=== PATIENT | male | born 1970 | race Two or more races ===

== ENCOUNTER 2017-08-14 09:11 | Inpatient (IN) | payer OTHER ==
[2017-08-14 10:40] VITALS: BMI 24.2
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
[2017-08-14] MEDS ORDERED: MENTHOL/PHENOL 1 EACH UD MM PRN (12:40)
[2017-08-14] MEDS ORDERED: hydrOXYzine PAMOATE 50 MG CAPSULE (FP) PO PRN (12:40)
[2017-08-14] MEDS ORDERED: P-EPHED 60MG/TRIPROLIDI 2.5MG TABLET PO PRN (12:40)
[2017-08-14] MEDS ORDERED: guaiFENesin/D-METHORPHAN HB 10 ML UNIT-DOSE CUPS PO PRN (12:40)
[2017-08-14] MEDS ORDERED: NICOTINE POLACRILEX 4 MG GUM BC PRN (12:40)
[2017-08-14] MEDS ORDERED: MAGNESIUM HYDROX 2400MG/30ML ORAL SUSPENSION 30 ML CUP PO PRN (12:40)
[2017-08-14] MEDS ORDERED: MAGNESIUM CITRATE 300 ML BOTTLE PO PRN (12:40)
[2017-08-14] MEDS ORDERED: IBUPROFEN 400 MG TABLET (FP) PO PRN (12:40)
[2017-08-14] MEDS ORDERED: chlordiazePOXIDE HCL 25 MG CAPSULE PO PRN (12:40)
[2017-08-14] MEDS ORDERED: MAG HYDROX/AL HYDROX/SIMETH 30 ML UNIT-DOSE CUP PO PRN (12:40)
[2017-08-14] MEDS ORDERED: ACETAMINOPHEN 325 MG TABLET (FP) PO PRN (12:40)
[2017-08-14] MEDS ORDERED: chlordiazePOXIDE HCL 25 MG CAPSULE PO ONE (13:45)
[2017-08-14 14:12] LABS: HEMATOCRIT 39.3 % (35.4-49); HEMOGLOBIN 12.6 GM/dL (11.7-16.9); MEAN CELL VOLUME 90.4 fl (80-96); MEAN PLT VOLUME 10.3 fl (7.5-11.1); PLATELET COUNT 246 K/MM3 (134-434); RBC 4.34 M/mm3 (4.00-5.60); RDW 14.2 % (11.9-15.9); WHITE BLOOD COUNT 4.4 K/mm3 (4.0-10.0)
[2017-08-14] MEDS: NICOTINE 21 MG/24 HOURS TOPICAL PATCH TD SCH (14:38)
[2017-08-14 14:48] LABS: ALBUMIN 3.8 g/dl (3.4-5.0); ANION GAP 7 (8-16); BLOOD UREA NITROGEN 13 mg/dL (7-18); CALCIUM 9.3 mg/dL (8.5-10.1); CHLORIDE 102 mmol/L (98-107); CO2 30 mmol/L (21-32); GLUCOSE,RANDOM 102 mg/dL (74-106); POTASSIUM 4.3 mmol/L (3.5-5.1); SODIUM 139 mmol/L (136-145)
[2017-08-14 14:51] LABS: ALK PHOS 88 U/L (45-117); BILIRUBIN,TOTAL 0.5 mg/dL (0.2-1.0); CREATININE 1.2 mg/dL (0.7-1.3); SGOT/AST 27 U/L (15-37); SGPT/ALT 26 U/L (12-78); TOT PROT 8.2 g/dl (6.4-8.2)
--- NOTE | 2017-08-14 15:01 | CONSULT ---
[facility] Psychiatric Consult - Data Date of interview: 08/14/17 Admission source: [facility] Identifying data: Readmission to [facility] for this 47 y/o Hispanc male seeking detox treatment on for alcohol and cocaine dependence.Patient is ,a father of two,domiciled,unemployed and supported on SSI benefits. Substance Abuse History: Confirmed by patient in this interview.Smoking history : Current every day smoker. Have you smoked in the past 12 months: Yes. Aproximately how many cigarettes per day: 30. Hx Chewing Tobacco Use: No. Initiated information on smoking cessation: Yes. 'Breaking Loose' booklet given : 08/14/17. - Substance & Tx. History. Hx Alcohol Use: Yes (BEER/RUM). Hx Substance Use: Yes (COCAINE). Substance Use Type: Alcohol, Cocaine. Hx Substance Use Treatment: Yes (LAST [place] [facility];CURRENTLY AT [facility]) . - Substances Abused. Cocaine. Route: Injection. Frequency: Daily. Amount used: $200. Age of first use: 11. Date of Last Use: 08/13/17. Alcohol-beer/rum. Route: Oral. Frequency: Daily. Amount used: 4 (40 oz.)/1 pt. Age of first use: 9. Date of Last Use: 08/14/17 Medical History: Hepatitis C and a history of orthosurgery (fracture of left wrist in 2016) and bilateral inguinal herniorraphy. Psychiatric History: Patient reports a remote history of two psychiatric hospitalizations ([facility]).No rehospitalization for past 20 years.Diagnosed with Bipolar Disorder and medicated with olanzapine 20 mg/day + celexa 20 mg/day + klonopin 1 mg/day.Mr Reed endorses optimal adherence to his OPD care (medications and clinic appointments).[facility] ([facility]adone [facility] dose = 80 mg/day) in the [place].Patient admits to a distant history of two suicide attempts (wrist-cutting). Physical/Sexual Abuse/Trauma History: Patient denies. Additional Comment: Urine Drug Screen Results: JASS-Cocaine, MTD-Methadone.Noted. Mental Status Exam - Mental Status Exam Alert and Oriented to: Time, Place, Person Cognitive Function: Good Patient Appearance: Well Groomed Mood: Hopeful, Euthymic Affect: Appropriate, Normal Range Patient Behavior: Fatigued, Appropriate, Cooperative Speech Pattern: Clear, Appropriate Voice Loudness: Normal Thought Process: Intact, Goal Oriented Thought Disorder: Not Present Hallucinations: Denies Suicidal Ideation: Denies Homicidal Ideation: Denies Insight/Judgement: Fair Sleep: Fair Appetite: Good Muscle strength/Tone: Normal Gait/Station: Normal Psychiatric Findings - Problem List ([place] 1, 2,3) (1) Alcohol dependence with uncomplicated withdrawal Current Visit: Yes Status: Acute (2) Cocaine dependence, uncomplicated Current Visit: Yes Status: Acute (3) Opioid dependence on agonist therapy Current Visit: Yes Status: Acute (4) Schizoaffective disorder Current Visit: Yes Status: Acute Qualifiers: Schizoaffective disorder type: bipolar Qualified Code(s): F25.0 - Schizoaffective disorder, bipolar type Comment: Self-report.On medications.Followed at [facility] outpatient program in the [place]. - Initial Treatment Plan Initial Treatment Plan: Psychoeducation.Detoxification in progress.Resume celexa 20 mg po daily + zyprexa 20 mg po daily.Side effects/benefits of both drugs are discussed with the patient.Made aware of risk of sexual dysfunction, suicidal ideation,cardiovascular adverse events,oversedation and metabolic syndrome.Mr Reed endorses these medications as efficacious and well tolerated.Agrees to their inclusion in the current regimen.Observation.
[2017-08-14 16:54] LABS: URINE APPEARANCE CLEAR; URINE BILIRUBIN NEGATIVE (NEGATIVE); URINE BLOOD NEGATIVE (NEGATIVE); URINE COLOR YELLOW; URINE GLUCOSE (UA) NEGATIVE (NEGATIVE); URINE KETONE NEGATIVE (NEGATIVE); URINE LEUK ESTERASE NEGATIVE (NEGATIVE); URINE NITRITE NEGATIVE (NEGATIVE); URINE PROTEIN NEGATIVE (NEGATIVE); URINE UROBILINOGEN NEGATIVE mg/dL (0.2-1.0)
[2017-08-14] MEDS: chlordiazePOXIDE HCL 25 MG CAPSULE PO SCH ×2 (17:22→22:11)
[2017-08-14] MEDS: THIAMINE HCL 100 MG TABLET (FP) PO SCH (22:11)
[2017-08-15] MEDS: chlordiazePOXIDE HCL 25 MG CAPSULE PO SCH ×4 (05:37→22:25)
[2017-08-15] MEDS: METHADONE HCL 40 MG DISPERSABLE TABLET PO SCH (05:37)
[2017-08-15] MEDS: NICOTINE 21 MG/24 HOURS TOPICAL PATCH TD SCH (10:21)
[2017-08-15] MEDS: CITALOPRAM HYDROBROMIDE 20 MG TABLET (FP) PO SCH (10:22)
[2017-08-15] MEDS: PRENATAL VITAMINS W/ FOLIC ACID TABLET (FP) PO SCH (10:22)
[2017-08-15] MEDS: OLANZapine 10 MG TABLET PO SCH (10:22)
--- NOTE | 2017-08-15 12:21 | EKG ---
Test Reason : Blood Pressure : / mmHG Vent. Rate : 124 BPM Atrial Rate : 124 BPM P-R Int : 170 ms QRS Dur : 086 ms QT Int : 314 ms P-R-T Axes : 098 020 065 degrees QTc Int : 451 ms SINUS TACHYCARDIA OTHERWISE NORMAL ECG NO PREVIOUS ECGS AVAILABLE Confirmed by GRACE MYERS MD ([id number]) on 08/15/2017 12:20:43 PM Referred By: Confirmed By:GRACE MYERS MD
--- NOTE | 2017-08-15 17:55 | PN ---
S CIWA - CIWA Score Nausea/Vomitin Muscle Tremors: 2 Anxiety: 4-Mod. Anxious/Guarded Agitation: 3 Paroxysmal Sweats: No Perspiration Orientation: 0-Oriented Tacttile Disturbances: 3-Moderate Itch/Numb/Burn Auditory Disturbances: 0-None Visual Disturbances: 0-None Headache: 0-None Present CIWA-Ar Total Score: 17 BHS Progress Note (SOAP) Subjective: Fatigue, Body Aches, Anxious, Vomiting. Objective: PT. A & O X 3, OBSERVED AMBULATING ON UNIT. NO ACUTE DISTRESS. 08/15/17 17:54 Vital Signs Temperature 96.8 F L 08/15/17 17:49 Pulse Rate 100 H 08/15/17 17:49 Respiratory Rate 18 08/15/17 17:49 Blood Pressure 117/70 08/15/17 17:49 O2 Sat by Pulse Oximetry (%) Laboratory Tests 08/14/17 08/14/17 08/14/17 12:15 12:15 12:15 WBC 4.4 RBC 4.34 Hgb 12.6 Hct 39.3 MCV 90.4 MCH 29.0 MCHC 32.0 RDW 14.2 Plt Count 246 MPV 10.3 Sodium 139 Potassium 4.3 Chloride 102 Carbon Dioxide 30 Anion Gap 7 L BUN 13 Creatinine 1.2 Creat Clearance w eGFR > 60 Random Glucose 102 Calcium 9.3 Total Bilirubin 0.5 AST 27 ALT 26 Alkaline Phosphatase 88 Total Protein 8.2 Albumin 3.8 Urine Color Urine Appearance Urine pH Ur Specific [place] Urine Protein Urine Glucose (UA) Urine Ketones Urine Blood Urine Nitrite Urine Bilirubin Urine Urobilinogen Ur Leukocyte Esterase RPR Titer Nonreactive 08/14/17 15:00 WBC RBC Hgb Hct MCV MCH MCHC RDW Plt Count MPV Sodium Potassium Chloride Carbon Dioxide Anion Gap BUN Creatinine Creat Clearance w eGFR Random Glucose Calcium Total Bilirubin AST ALT Alkaline Phosphatase Total Protein Albumin Urine Color Yellow Urine Appearance Clear Urine pH 5.0 Ur Specific [place] 1.023 Urine Protein Negative Urine Glucose (UA) Negative Urine Ketones Negative Urine Blood Negative Urine Nitrite Negative Urine Bilirubin Negative Urine Urobilinogen Negative Ur Leukocyte Esterase Negative RPR Titer LABS NOTED. Assessment: 08/15/17 17:54 WITHDRAWAL SYMPTOMS. Plan: CONTINUE DETOX. INCREASE DAILY PO FLUID INTAKE.
[2017-08-15] MEDS: THIAMINE HCL 100 MG TABLET (FP) PO SCH (22:25)
[2017-08-16] MEDS: chlordiazePOXIDE HCL 25 MG CAPSULE PO SCH ×2 (05:30→10:11)
[2017-08-16] MEDS: METHADONE HCL 40 MG DISPERSABLE TABLET PO SCH (05:30)
[2017-08-16] MEDS: PRENATAL VITAMINS W/ FOLIC ACID TABLET (FP) PO SCH (10:11)
[2017-08-16] MEDS: OLANZapine 10 MG TABLET PO SCH (10:11)
[2017-08-16] MEDS: CITALOPRAM HYDROBROMIDE 20 MG TABLET (FP) PO SCH (10:11)
[2017-08-16] MEDS: NICOTINE 21 MG/24 HOURS TOPICAL PATCH TD SCH (10:11)
--- NOTE | 2017-08-16 16:12 | PN ---
S CIWA - CIWA Score Nausea/Vomitin Muscle Tremors: 3 Anxiety: 3 Agitation: 3 Paroxysmal Sweats: 1-Minimal Palms Moist Orientation: 0-Oriented Tacttile Disturbances: 1-Very Mild Itch/Numbness Auditory Disturbances: 1-Very Mild Visual Disturbances: 0-None Headache: 2-Mild CIWA-Ar Total Score: 17 BHS Progress Note (SOAP) Subjective: ALERT,IRRITABLE,ANXIOUS,INTERRUPTED SLEEP,TREMOR Objective: 08/16/17 16:10 Vital Signs Temperature 97.5 F L 08/16/17 13:47 Pulse Rate 106 H 08/16/17 13:47 Respiratory Rate 16 08/16/17 13:47 Blood Pressure 123/79 08/16/17 13:47 O2 Sat by Pulse Oximetry (%) EKG NSR,NORMAL ECG Laboratory Last Values WBC 4.4 K/mm3 (4.0-10.0) 08/14/17 12:15 RBC 4.34 M/mm3 (4.00-5.60) 08/14/17 12:15 Hgb 12.6 GM/dL (11.7-16.9) 08/14/17 12:15 Hct 39.3 % (35.4-49) 08/14/17 12:15 MCV 90.4 fl (80-96) 08/14/17 12:15 MCH 29.0 pg (25.7-33.7) 08/14/17 12:15 MCHC 32.0 g/dl (32.0-35.9) 08/14/17 12:15 RDW 14.2 % (11.9-15.9) 08/14/17 12:15 Plt Count 246 K/MM3 (134-434) 08/14/17 12:15 MPV 10.3 fl (7.5-11.1) 08/14/17 12:15 Sodium 139 mmol/L (136-145) 08/14/17 12:15 Potassium 4.3 mmol/L (3.5-5.1) 08/14/17 12:15 Chloride 102 mmol/L (98-107) 08/14/17 12:15 Carbon Dioxide 30 mmol/L (21-32) 08/14/17 12:15 Anion Gap 7 (8-16) L 08/14/17 12:15 BUN 13 mg/dL (7-18) 08/14/17 12:15 Creatinine 1.2 mg/dL (0.7-1.3) 08/14/17 12:15 Creat Clearance w eGFR > 60 (>60) 08/14/17 12:15 Random Glucose 102 mg/dL (74-106) 08/14/17 12:15 Calcium 9.3 mg/dL (8.5-10.1) 08/14/17 12:15 Total Bilirubin 0.5 mg/dL (0.2-1.0) 08/14/17 12:15 AST 27 U/L (15-37) 08/14/17 12:15 ALT 26 U/L (12-78) 08/14/17 12:15 Alkaline Phosphatase 88 U/L (45-117) 08/14/17 12:15 Total Protein 8.2 g/dl (6.4-8.2) 08/14/17 12:15 Albumin 3.8 g/dl (3.4-5.0) 08/14/17 12:15 Urine Color Yellow 08/14/17 15:00 Urine Appearance Clear 08/14/17 15:00 Urine pH 5.0 (5.0-8.0) 08/14/17 15:00 Ur Specific [place] 1.023 (1.001-1.035) 08/14/17 15:00 Urine Protein Negative (NEGATIVE) 08/14/17 15:00 Urine Glucose (UA) Negative (NEGATIVE) 08/14/17 15:00 Urine Ketones Negative (NEGATIVE) 08/14/17 15:00 Urine Blood Negative (NEGATIVE) 08/14/17 15:00 Urine Nitrite Negative (NEGATIVE) 08/14/17 15:00 Urine Bilirubin Negative (NEGATIVE) 08/14/17 15:00 Urine Urobilinogen Negative mg/dL (0.2-1.0) 08/14/17 15:00 Ur Leukocyte Esterase Negative (NEGATIVE) 08/14/17 15:00 RPR Titer Nonreactive (NONREACTIVE) 08/14/17 12:15 Assessment: 08/16/17 16:11 WITHDRAWAL SYMPTOM Plan: CONTINUE DETOX
[2017-08-16] MEDS: chlordiazePOXIDE 5 MG CAPSULE PO SCH ×2 (17:20→22:26)
[2017-08-16] MEDS: THIAMINE HCL 100 MG TABLET (FP) PO SCH (22:26)
[2017-08-17] MEDS: METHADONE HCL 40 MG DISPERSABLE TABLET PO SCH (05:44)
[2017-08-17] MEDS: chlordiazePOXIDE 5 MG CAPSULE PO SCH ×2 (05:44→10:34)
[2017-08-17] MEDS: OLANZapine 10 MG TABLET PO SCH (10:34)
[2017-08-17] MEDS: PRENATAL VITAMINS W/ FOLIC ACID TABLET (FP) PO SCH (10:34)
[2017-08-17] MEDS: NICOTINE 21 MG/24 HOURS TOPICAL PATCH TD SCH (10:34)
[2017-08-17] MEDS: CITALOPRAM HYDROBROMIDE 20 MG TABLET (FP) PO SCH (11:13)
--- NOTE | 2017-08-17 14:04 | PN ---
S Progress Note (SOAP) Subjective: Sweating, Diarrhea. Objective: PT. A & O X 3, OBSERVED AMBULATING ON UNIT WITH ASSISTANCE OF A CANE. NO ACUTE DISTRESS. 08/17/17 13:55 Vital Signs Temperature 97.4 F L 08/17/17 12:48 Pulse Rate 102 H 08/17/17 12:48 Respiratory Rate 18 08/17/17 12:48 Blood Pressure 122/75 08/17/17 12:48 O2 Sat by Pulse Oximetry (%) Laboratory Tests 08/14/17 08/14/17 08/14/17 12:15 12:15 12:15 WBC 4.4 RBC 4.34 Hgb 12.6 Hct 39.3 MCV 90.4 MCH 29.0 MCHC 32.0 RDW 14.2 Plt Count 246 MPV 10.3 Sodium 139 Potassium 4.3 Chloride 102 Carbon Dioxide 30 Anion Gap 7 L BUN 13 Creatinine 1.2 Creat Clearance w eGFR > 60 Random Glucose 102 Calcium 9.3 Total Bilirubin 0.5 AST 27 ALT 26 Alkaline Phosphatase 88 Total Protein 8.2 Albumin 3.8 Urine Color Urine Appearance Urine pH Ur Specific [place] Urine Protein Urine Glucose (UA) Urine Ketones Urine Blood Urine Nitrite Urine Bilirubin Urine Urobilinogen Ur Leukocyte Esterase RPR Titer Nonreactive 08/14/17 15:00 WBC RBC Hgb Hct MCV MCH MCHC RDW Plt Count MPV Sodium Potassium Chloride Carbon Dioxide Anion Gap BUN Creatinine Creat Clearance w eGFR Random Glucose Calcium Total Bilirubin AST ALT Alkaline Phosphatase Total Protein Albumin Urine Color Yellow Urine Appearance Clear Urine pH 5.0 Ur Specific [place] 1.023 Urine Protein Negative Urine Glucose (UA) Negative Urine Ketones Negative Urine Blood Negative Urine Nitrite Negative Urine Bilirubin Negative Urine Urobilinogen Negative Ur Leukocyte Esterase Negative RPR Titer LABS NOTED. Assessment: 08/17/17 13:56 WITHDRAWAL SYMPTOMS. Plan: CONTINUE DETOX. PATIENT FELL WHILE TRYING TO GET OUT OF BED. PATIENT FOUND LYING ON FLOOR. PATIENT DENIES LOC AFTER FALL. PATIENT REPORTS THAT HE FELL ON HIS BACK, BUT DENIES HITTING HIS HEAD AFTER FALL. PATIENT ASSISTED BACK TO BED. PATIENT A & O X 3. NO WOUNDS OR BRUISING NOTED ANYWHERE ON PATIENT'S BODY, INCLUDING HIS HEAD. VS STABLE. [facility] FALL PROTOCOL # 2 IMPLEMENTED. PATIENT ADVISED TO USE CAUTION AND TO MOVE SLOWLY WHEN FIRST GETTING UP FROM LYING / SITTING POSITION TO STANDING POSITION AND TO NOTIFY MEDICAL/NURSING STAFF IMMEDIATELY SHOULD ANY UNUSUAL SYMPTOMS DEVELOP AT ANY TIME. PATIENT VERBALIZED UNDERSTANDING OF RECOMMENDATIONS.
[2017-08-17] MEDS: chlordiazePOXIDE HCL 10 MG CAPSULE PO SCH ×2 (17:02→22:51)
[2017-08-17] MEDS: LOPERAMIDE HCL 2 MG CAPSULE PO PRN (20:29)
[2017-08-17] MEDS: THIAMINE HCL 100 MG TABLET (FP) PO SCH (22:51)
[2017-08-18] MEDS: LOPERAMIDE HCL 2 MG CAPSULE PO PRN (03:50)
[2017-08-18] MEDS: METHADONE HCL 40 MG DISPERSABLE TABLET PO SCH (05:27)
[2017-08-18] MEDS: chlordiazePOXIDE HCL 10 MG CAPSULE PO SCH (05:27)
[2017-08-18] MEDS: CITALOPRAM HYDROBROMIDE 20 MG TABLET (FP) PO SCH (09:13)
[2017-08-18] MEDS: PRENATAL VITAMINS W/ FOLIC ACID TABLET (FP) PO SCH (09:13)
[2017-08-18] MEDS: NICOTINE 21 MG/24 HOURS TOPICAL PATCH TD SCH (09:14)
[2017-08-18 09:17] VITALS: BP 110/62; PULSE 104; TEMP 98.1
--- NOTE | 2017-08-18 11:14 | DS ---
[facility] Detox Discharge Summary Admission Date: 08/14/17 Discharge Date: 08/18/17 - History Present History: Alcohol Dependence, Cocaine Dependence Additional Comments: DETOX COMPLETED. ALERT O X3. NAD. Pertinent Past History: SEE DX BELOW - Physical Exam Results Vital Signs: Vital Signs Temperature 98.1 F 08/18/17 09:15 Pulse Rate 104 H 08/18/17 09:15 Respiratory Rate 20 08/18/17 09:15 Blood Pressure 110/62 08/18/17 09:15 O2 Sat by Pulse Oximetry (%) Pertinent Admission Physical Exam Findings: WITHDRAWAL SX Laboratory Last Values WBC 4.4 K/mm3 (4.0-10.0) 08/14/17 12:15 RBC 4.34 M/mm3 (4.00-5.60) 08/14/17 12:15 Hgb 12.6 GM/dL (11.7-16.9) 08/14/17 12:15 Hct 39.3 % (35.4-49) 08/14/17 12:15 MCV 90.4 fl (80-96) 08/14/17 12:15 MCH 29.0 pg (25.7-33.7) 08/14/17 12:15 MCHC 32.0 g/dl (32.0-35.9) 08/14/17 12:15 RDW 14.2 % (11.9-15.9) 08/14/17 12:15 Plt Count 246 K/MM3 (134-434) 08/14/17 12:15 MPV 10.3 fl (7.5-11.1) 08/14/17 12:15 Sodium 139 mmol/L (136-145) 08/14/17 12:15 Potassium 4.3 mmol/L (3.5-5.1) 08/14/17 12:15 Chloride 102 mmol/L (98-107) 08/14/17 12:15 Carbon Dioxide 30 mmol/L (21-32) 08/14/17 12:15 Anion Gap 7 (8-16) L 08/14/17 12:15 BUN 13 mg/dL (7-18) 08/14/17 12:15 Creatinine 1.2 mg/dL (0.7-1.3) 08/14/17 12:15 Creat Clearance w eGFR > 60 (>60) 08/14/17 12:15 Random Glucose 102 mg/dL (74-106) 08/14/17 12:15 Calcium 9.3 mg/dL (8.5-10.1) 08/14/17 12:15 Total Bilirubin 0.5 mg/dL (0.2-1.0) 08/14/17 12:15 AST 27 U/L (15-37) 08/14/17 12:15 ALT 26 U/L (12-78) 08/14/17 12:15 Alkaline Phosphatase 88 U/L (45-117) 08/14/17 12:15 Total Protein 8.2 g/dl (6.4-8.2) 08/14/17 12:15 Albumin 3.8 g/dl (3.4-5.0) 08/14/17 12:15 Urine Color Yellow 08/14/17 15:00 Urine Appearance Clear 08/14/17 15:00 Urine pH 5.0 (5.0-8.0) 08/14/17 15:00 Ur Specific [place] 1.023 (1.001-1.035) 08/14/17 15:00 Urine Protein Negative (NEGATIVE) 08/14/17 15:00 Urine Glucose (UA) Negative (NEGATIVE) 08/14/17 15:00 Urine Ketones Negative (NEGATIVE) 08/14/17 15:00 Urine Blood Negative (NEGATIVE) 08/14/17 15:00 Urine Nitrite Negative (NEGATIVE) 08/14/17 15:00 Urine Bilirubin Negative (NEGATIVE) 08/14/17 15:00 Urine Urobilinogen Negative mg/dL (0.2-1.0) 08/14/17 15:00 Ur Leukocyte Esterase Negative (NEGATIVE) 08/14/17 15:00 RPR Titer Nonreactive (NONREACTIVE) 08/14/17 12:15 - Treatment Hospital Course: Detox Protocol Followed, Detoxed Safely, Responded well, Discharged Condition Good, Rehab Referral Accepted Patient has Accepted a Rehab Referral to: [facility] - Medication Discharge Medications: Ambulatory Orders Citalopram Hydrobromide [Celexa -] 20 mg PO DAILY 08/14/17 Olanzapine [Zyprexa] 20 mg PO DAILY 08/14/17 - Diagnosis (1) Alcohol dependence with uncomplicated withdrawal Status: Acute (2) Cocaine dependence, uncomplicated Status: Acute (3) Methadone maintenance therapy patient Status: Chronic (4) History of hepatitis C Status: Chronic (5) Anxiety and depression Status: Chronic (6) Use of cane as ambulatory aid Status: Chronic (7) Schizoaffective disorder Status: Acute Qualifiers: Schizoaffective disorder type: bipolar Qualified Code(s): F25.0 - Schizoaffective disorder, bipolar type - AMA Did Patient Leave Against Medical Advice: No
== END 2017-08-18 09:20 | disposition home or self-care (01) | DRG 773 ==
LOC: YASAS 09:11 → Y3N 12:35
PROVIDERS: ADMIT Internal Medicine; ATTEND Internal Medicine
PROC: HZ2ZZZZ Detoxification Services for Substance Abuse Treatment (ICD-10-PCS; principal; 2017-08-14)
DX: F11.20 Opioid dependence, uncomplicated (principal); F10.230 Alcohol dependence with withdrawal, uncomplicated; F14.20 Cocaine dependence, uncomplicated; F25.0 Schizoaffective disorder, bipolar type; F41.8 Other specified anxiety disorders; R26.2 Difficulty in walking, not elsewhere classified; Z99.89 Dependence on other enabling machines and devices; Z86.19 Personal history of other infectious and parasitic diseases; Z91.5 Personal history of self-harm
CPT/HCPCS: 36415; 80053; 81003; 85027; 86593; 93005; 93010

== ENCOUNTER 2018-10-18 10:10 | Inpatient (IN) | payer OTHER ==
[2018-10-18 10:50] VITALS: BMI 20.7
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
[2018-10-18] MEDS ORDERED: MAGNESIUM HYDROX 2400MG/30ML ORAL SUSPENSION 30 ML CUP PO PRN (11:55)
[2018-10-18] MEDS ORDERED: IBUPROFEN 400 MG TABLET (FP) PO PRN (11:55)
[2018-10-18] MEDS ORDERED: MENTHOL/PHENOL 1 EACH UD MM PRN (11:55)
[2018-10-18] MEDS ORDERED: MAG HYDROX/AL HYDROX/SIMETH 30 ML UNIT-DOSE CUP PO PRN (11:55)
[2018-10-18] MEDS ORDERED: METHOCARBAMOL 500 MG TABLET PO PRN (11:55)
[2018-10-18] MEDS ORDERED: hydrOXYzine PAMOATE 25 MG CAPSULE (FP) PO PRN (11:55)
[2018-10-18] MEDS ORDERED: MAGNESIUM CITRATE 300 ML BOTTLE PO PRN (11:55)
[2018-10-18] MEDS ORDERED: ACETAMINOPHEN 325 MG TABLET (FP) PO PRN ×2 (11:55)
[2018-10-18] MEDS ORDERED: BISMUTH SUBSALICYLATE 262 MG/15 ML BTL PO PRN (11:55)
[2018-10-18] MEDS ORDERED: chlordiazePOXIDE HCL 25 MG CAPSULE PO PRN (11:55)
[2018-10-18] MEDS ORDERED: NICOTINE POLACRILEX 2 MG GUM BUC PRN (11:55)
[2018-10-18] MEDS: NICOTINE 21 MG/24 HOURS TOPICAL PATCH TD SCH (13:01)
[2018-10-18 14:58] LABS: HEMOGLOBIN 11.3 GM/dL (11.7-16.9); MCH 29.4 pg (25.7-33.7); MCHC 33.2 g/dl (32.0-35.9); MEAN CELL VOLUME 88.6 fl (80-96); PLATELET COUNT 284 K/MM3 (134-434); RBC 3.84 M/mm3 (4.00-5.60); RDW 14.6 % (11.9-15.9); WHITE BLOOD COUNT 4.1 K/mm3 (4.0-10.0)
[2018-10-18] MEDS: chlordiazePOXIDE HCL 25 MG CAPSULE PO SCH ×2 (18:24→22:11)
[2018-10-18 18:38] LABS: ALBUMIN 3.8 g/dl (3.4-5.0); ALK PHOS 95 U/L (45-117); ANION GAP 8 MMOL/L (8-16); BILIRUBIN,TOTAL 0.3 mg/dL (0.2-1); BLOOD UREA NITROGEN 14 mg/dL (7-18); CALCIUM 9.5 mg/dL (8.5-10.1); CHLORIDE 104 mmol/L (98-107); CO2 28 mmol/L (21-32); CREATININE 1.1 mg/dL (0.55-1.3); GLUCOSE,RANDOM 144 mg/dL (74-106); POTASSIUM 3.8 mmol/L (3.5-5.1); SGOT/AST 21 U/L (15-37); SGPT/ALT 20 U/L (13-61); SODIUM 140 mmol/L (136-145); TOT PROT 8.2 g/dl (6.4-8.2)
[2018-10-18] MEDS: MELATONIN 5 MG TABLETS PO PRN (22:12)
[2018-10-18] MEDS: THIAMINE HCL 100 MG TABLET (FP) PO SCH (22:12)
[2018-10-19] MEDS ORDERED: METHADONE HCL 10 MG TABLET ONE (04:02)
[2018-10-19] MEDS ORDERED: METHADONE HCL 40 MG DISPERSABLE TABLET ONE (04:03)
[2018-10-19] MEDS ORDERED: METHADONE HCL 10 MG TABLET PO SCH (06:00)
[2018-10-19] MEDS: METHADONE 40 MG, METHADONE 10 MG PO SCH (06:03)
[2018-10-19] MEDS: chlordiazePOXIDE HCL 25 MG CAPSULE PO SCH ×4 (06:04→22:16)
[2018-10-19] MEDS: PRENATAL VITAMINS W/ FOLIC ACID TABLET (FP) PO SCH (10:12)
[2018-10-19] MEDS: NICOTINE 21 MG/24 HOURS TOPICAL PATCH TD SCH (10:12)
--- NOTE | 2018-10-19 13:42 | PN ---
S CIWA - CIWA Score Nausea/Vomitin-No Nausea/No Vomiting Muscle Tremors: 3 Anxiety: 3 Agitation: 4-Moderately Restless Paroxysmal Sweats: 3 Orientation: 0-Oriented Tacttile Disturbances: 0-None Auditory Disturbances: 0-None Visual Disturbances: 0-None Headache: 0-None Present CIWA-Ar Total Score: 13 [facility] Progress Note (SOAP) Subjective: sweats shakes body aches interrupted sleep irritable Objective: 10/19/18 13:42 Vital Signs Temperature 97.9 F 10/19/18 13:15 Pulse Rate 92 H 10/19/18 13:15 Respiratory Rate 18 10/19/18 13:15 Blood Pressure 106/69 10/19/18 13:15 O2 Sat by Pulse Oximetry (%) Laboratory Tests 10/18/18 10/18/18 10/18/18 12:00 12:00 12:00 WBC 4.1 RBC 3.84 L Hgb 11.3 L Hct 34.0 L MCV 88.6 MCH 29.4 MCHC 33.2 RDW 14.6 Plt Count 284 MPV 9.0 D Sodium 140 Potassium 3.8 Chloride 104 Carbon Dioxide 28 Anion Gap 8 BUN 14 Creatinine 1.1 Creat Clearance w eGFR 70.86 Random Glucose 144 H Calcium 9.5 Total Bilirubin 0.3 AST 21 ALT 20 Alkaline Phosphatase 95 Total Protein 8.2 Albumin 3.8 RPR Titer Nonreactive aaox3 ambulating no acute distress Assessment: 10/19/18 13:43 withdrawal sx Plan: continue detox increase fluids
[2018-10-19] MEDS: MELATONIN 5 MG TABLETS PO PRN (22:15)
[2018-10-19] MEDS: THIAMINE HCL 100 MG TABLET (FP) PO SCH (22:15)
[2018-10-20] MEDS ORDERED: METHADONE HCL 10 MG TABLET ONE (04:51)
[2018-10-20] MEDS ORDERED: METHADONE HCL 40 MG DISPERSABLE TABLET ONE (04:52)
[2018-10-20] MEDS: METHADONE 40 MG, METHADONE 10 MG PO SCH (05:50)
[2018-10-20] MEDS: chlordiazePOXIDE HCL 25 MG CAPSULE PO SCH ×2 (05:50→10:35)
[2018-10-20] MEDS: NICOTINE 21 MG/24 HOURS TOPICAL PATCH TD SCH (10:34)
[2018-10-20] MEDS: PRENATAL VITAMINS W/ FOLIC ACID TABLET (FP) PO SCH (10:34)
--- NOTE | 2018-10-20 11:25 | PN ---
[facility] CIWA - CIWA Score Nausea/Vomitin-No Nausea/No Vomiting Muscle Tremors: 3 Anxiety: 2 Agitation: 3 Paroxysmal Sweats: 2 Orientation: 0-Oriented Tacttile Disturbances: 0-None Auditory Disturbances: 0-None Visual Disturbances: 0-None Headache: 0-None Present CIWA-Ar Total Score: 10 [facility] Progress Note (SOAP) Subjective: tired sleepy little sweats Objective: 10/20/18 11:25 Vital Signs Temperature 98.6 F 10/20/18 10:30 Pulse Rate 98 H 10/20/18 10:30 Respiratory Rate 18 10/20/18 10:30 Blood Pressure 103/76 10/20/18 10:30 O2 Sat by Pulse Oximetry (%) Laboratory Tests 10/18/18 10/18/18 10/18/18 12:00 12:00 12:00 WBC 4.1 RBC 3.84 L Hgb 11.3 L Hct 34.0 L MCV 88.6 MCH 29.4 MCHC 33.2 RDW 14.6 Plt Count 284 MPV 9.0 D Sodium 140 Potassium 3.8 Chloride 104 Carbon Dioxide 28 Anion Gap 8 BUN 14 Creatinine 1.1 Creat Clearance w eGFR 70.86 Random Glucose 144 H Calcium 9.5 Total Bilirubin 0.3 AST 21 ALT 20 Alkaline Phosphatase 95 Total Protein 8.2 Albumin 3.8 RPR Titer Nonreactive aaox3 ambulating no acute distress Assessment: 10/20/18 11:25 withdrawal sx Plan: continue detox increase fluids
[2018-10-20] MEDS ORDERED: chlordiazePOXIDE HCL 10 MG CAPSULE PO PRN (17:00)
[2018-10-20] MEDS: chlordiazePOXIDE HCL 10 MG CAPSULE PO SCH ×2 (17:58→22:20)
[2018-10-20] MEDS: MELATONIN 5 MG TABLETS PO PRN (22:20)
[2018-10-20] MEDS: THIAMINE HCL 100 MG TABLET (FP) PO SCH (22:20)
[2018-10-21] MEDS ORDERED: METHADONE HCL 10 MG TABLET ONE (05:20)
[2018-10-21] MEDS ORDERED: METHADONE HCL 40 MG DISPERSABLE TABLET ONE (05:20)
[2018-10-21] MEDS: chlordiazePOXIDE HCL 10 MG CAPSULE PO SCH ×3 (05:21→16:45)
[2018-10-21] MEDS: METHADONE 40 MG, METHADONE 10 MG PO SCH (05:21)
[2018-10-21] MEDS: NICOTINE 21 MG/24 HOURS TOPICAL PATCH TD SCH (10:00)
[2018-10-21] MEDS: PRENATAL VITAMINS W/ FOLIC ACID TABLET (FP) PO SCH (10:00)
--- NOTE | 2018-10-21 12:40 | PN ---
[facility] CIWA - CIWA Score Nausea/Vomitin-No Nausea/No Vomiting Muscle Tremors: 2 Anxiety: 3 Agitation: 3 Paroxysmal Sweats: 1-Minimal Palms Moist Orientation: 0-Oriented Tacttile Disturbances: 0-None Auditory Disturbances: 0-None Visual Disturbances: 0-None Headache: 0-None Present CIWA-Ar Total Score: 9 [facility] Progress Note (SOAP) Subjective: anxiety sweats i need to see psych for my depression Objective: 10/21/18 12:39 Vital Signs Temperature 97.5 F L 10/21/18 09:10 Pulse Rate 98 H 10/21/18 09:10 Respiratory Rate 18 10/21/18 09:10 Blood Pressure 125/80 10/21/18 09:10 O2 Sat by Pulse Oximetry (%) aaox3 ambulating no acute distress Assessment: 10/21/18 12:39 mild withdrawal sx Plan: continue detox increase fluids psych ordered d/c in am
[2018-10-21] MEDS: THIAMINE HCL 100 MG TABLET (FP) PO SCH (22:19)
[2018-10-22] MEDS ORDERED: METHADONE HCL 10 MG TABLET ONE (04:48)
[2018-10-22] MEDS ORDERED: METHADONE HCL 40 MG DISPERSABLE TABLET ONE (04:49)
[2018-10-22] MEDS: METHADONE 40 MG, METHADONE 10 MG PO SCH (06:28)
[2018-10-22] MEDS: chlordiazePOXIDE HCL 10 MG CAPSULE PO SCH (06:28)
--- NOTE | 2018-10-22 07:07 | CONSULT ---
[facility] Psychiatric Consult - Data Date of interview: 10/22/18 Admission source: Self-refered Identifying data: Mr Reed is a 48 years old male, father of 2 children, unemployed receving SSI, domiciled seeking detox treatment for alcohol and cocaine. Substance Abuse History: Reports history of alcohol and cocaine use. Refer to addiction counselor's summary for further information Medical History: Significant for history of treatment of hepatitis C, orthosurgery (fracture of left wrist in 2016) and bilateral inguinal herniorraphy at 6 months old. Patient is on methadone 50 mg/day from [facility]. Smokes cigarettes 1 pd Psychiatric History: Patient reports a remote history of two psychiatric hospitalizations ([facility]).No rehospitalization for past 20 years.Diagnosed with Bipolar Disorder and medicated with olanzapine 20 mg/day + celexa 20 mg/day + klonopin 1 mg/day.Mr Reed endorses optimal adherence to his OPD care (medications and clinic appointments).Followed at [facility] program (methadone maintenance dose = 80 mg/day) in the [place].Patient admits to a distant history of two suicide attempts (wrist-cutting). Psychiatric Findings - Problem List ([place] 1, 2,3) (1) Schizoaffective disorder Current Visit: No Status: Chronic Qualifiers: Schizoaffective disorder type: bipolar Qualified Code(s): F25.0 - Schizoaffective disorder, bipolar type Comment: Self-report.On medications.Followed at [facility] outpatient program in the [place].
[2018-10-22 09:23] VITALS: BP 120/64; PULSE 82; TEMP 98.1
--- NOTE | 2018-10-22 09:24 | DS ---
[facility] Detox Discharge Summary Admission Date: 10/18/18 Discharge Date: 10/22/18 - History Present History: Alcohol Dependence, Cocaine Dependence, MMTP - Physical Exam Results Vital Signs: Vital Signs Temperature 98.1 F 10/22/18 09:22 Pulse Rate 82 10/22/18 09:22 Respiratory Rate 18 10/22/18 09:22 Blood Pressure 120/64 10/22/18 09:22 O2 Sat by Pulse Oximetry (%) - Treatment Hospital Course: Detox Protocol Followed, Detoxed Safely, Responded well, Discharged Condition Good, Rehab Referral Accepted - Medication Discharge Medications: Ambulatory Orders NK [No Known Home Medication] 10/18/18 - Diagnosis (1) Dehydration Current Visit: Yes Status: Acute (2) No natural teeth Current Visit: Yes Status: Chronic (3) Weight loss Current Visit: Yes Status: Acute (4) Alcohol dependence with uncomplicated withdrawal Current Visit: Yes Status: Chronic (5) Cocaine dependence, uncomplicated Current Visit: Yes Status: Chronic (6) Opioid dependence on agonist therapy Current Visit: No Status: Acute (7) Anxiety and depression Current Visit: No Status: Chronic (8) History of hepatitis C Current Visit: No Status: Chronic (9) Methadone maintenance therapy patient Current Visit: Yes Status: Chronic (10) Schizoaffective disorder Current Visit: No Status: Chronic Qualifiers: Schizoaffective disorder type: bipolar Qualified Code(s): F25.0 - Schizoaffective disorder, bipolar type (11) Use of cane as ambulatory aid Current Visit: No Status: Chronic - AMA Did Patient Leave Against Medical Advice: No (referred to inpatient rehab)
[2018-10-22] MEDS: NICOTINE 21 MG/24 HOURS TOPICAL PATCH TD SCH (10:24)
[2018-10-22] MEDS: PRENATAL VITAMINS W/ FOLIC ACID TABLET (FP) PO SCH (10:24)
== END 2018-10-22 11:25 | disposition home or self-care (01) | DRG 773 ==
LOC: YASAS 10:10 → Y6N 12:01
PROVIDERS: ADMIT Surgery; ATTEND Surgery
PROC: HZ2ZZZZ Detoxification Services for Substance Abuse Treatment (ICD-10-PCS; principal; 2018-10-18)
DX: F10.230 Alcohol dependence with withdrawal, uncomplicated (principal); F14.20 Cocaine dependence, uncomplicated; F11.20 Opioid dependence, uncomplicated; F17.213 Nicotine dependence, cigarettes, with withdrawal; F25.0 Schizoaffective disorder, bipolar type; F41.8 Other specified anxiety disorders; F32.9 Major depressive disorder, single episode, unspecified; E86.0 Dehydration; K00.0 Anodontia; R63.4 Abnormal weight loss; Z68.20 Body mass index [BMI] 20.0-20.9, adult; R26.89 Other abnormalities of gait and mobility; Z99.89 Dependence on other enabling machines and devices; Z86.19 Personal history of other infectious and parasitic diseases; Z91.5 Personal history of self-harm
CPT/HCPCS: 36415; 80053; 85027; 86593

== ENCOUNTER 2018-11-05 12:14 | Inpatient (IN) | payer OTHER ==
[2018-11-05 14:01] VITALS: BMI 20.7
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
[2018-11-05] MEDS ORDERED: ACETAMINOPHEN 325 MG TABLET (FP) PO PRN (14:40)
[2018-11-05] MEDS ORDERED: LOPERAMIDE HCL 2 MG CAPSULE PO PRN (14:40)
[2018-11-05] MEDS ORDERED: IBUPROFEN 400 MG TABLET (FP) PO PRN (14:40)
[2018-11-05] MEDS ORDERED: hydrOXYzine PAMOATE 50 MG CAPSULE (FP) PO PRN (14:40)
[2018-11-05] MEDS ORDERED: MAG HYDROX/AL HYDROX/SIMETH 30 ML UNIT-DOSE CUP PO PRN (14:40)
[2018-11-05] MEDS ORDERED: MAGNESIUM CITRATE 300 ML BOTTLE PO PRN (14:40)
[2018-11-05] MEDS ORDERED: guaiFENesin 200 MG/10 ML 10 ML UNIT-DOSE CUPS PO PRN (14:40)
[2018-11-05] MEDS ORDERED: MAGNESIUM HYDROX 2400MG/30ML ORAL SUSPENSION 30 ML CUP PO PRN (14:40)
[2018-11-05] MEDS ORDERED: MENTHOL/PHENOL 1 EACH UD MM PRN (14:40)
[2018-11-05] MEDS ORDERED: P-EPHED 60MG/TRIPROLIDI 2.5MG TABLET PO PRN (14:40)
[2018-11-05] MEDS ORDERED: NICOTINE POLACRILEX 4 MG GUM BUC PRN (14:40)
[2018-11-05] MEDS: BACITRACIN 0.9 GM PACKET TP SCH (16:07)
[2018-11-05] MEDS: THIAMINE HCL 100 MG TABLET (FP) PO SCH (21:31)
[2018-11-05] MEDS ORDERED: MELATONIN 5 MG TABLETS PO PRN (22:00)
[2018-11-06] MEDS ORDERED: METHADONE HCL 10 MG TABLET ONE (05:18)
[2018-11-06] MEDS ORDERED: METHADONE HCL 40 MG DISPERSABLE TABLET ONE (05:18)
[2018-11-06] MEDS ORDERED: METHADONE HCL 40 MG DISPERSABLE TABLET PO SCH (06:00)
[2018-11-06] MEDS: METHADONE 40 MG, METHADONE 10 MG PO SCH (06:17)
[2018-11-06] MEDS ORDERED: PT OWN MED DRAWER 7, Y5N ONE (08:59)
[2018-11-06] MEDS: NICOTINE 21 MG/24 HOURS TOPICAL PATCH TD SCH (09:49)
[2018-11-06] MEDS: PRENATAL VITAMINS W/ FOLIC ACID TABLET (FP) PO SCH (09:49)
[2018-11-06] MEDS: BACITRACIN 0.9 GM PACKET TP SCH (09:49)
[2018-11-06] MEDS: EMTRICITABINE 200MG/TENOFOVIR 300MG PO SCH (11:50)
[2018-11-06 11:54] LABS: EPI CELLS 0.6 /HPF (0-5/HPF); URINE BACTERIA 3680.3 /hpf (NEGATIVE); URINE CASTS 8 /lpf (0-8); URINE RBC 1 /hpf (0-4); URINE WBC 95 /hpf (0-5)
[2018-11-06 12:12] LABS: URINE APPEARANCE Clear; URINE BILIRUBIN Negative (NEGATIVE); URINE COLOR Yellow; URINE GLUCOSE (UA) Trace (NEGATIVE); URINE KETONE Negative (NEGATIVE); URINE LEUK ESTERASE 3+ (NEGATIVE); URINE NITRITE Positive (NEGATIVE); URINE PROTEIN Negative (NEGATIVE); URINE UROBILINOGEN 0.2 mg/dL (0.2-1.0)
--- NOTE | 2018-11-06 19:37 | CONSULT ---
[facility] Psychiatric Consult - Data Date of interview: 11/06/18 Admission source: [facility] Identifying data: Direct admission to [address] for this 48 y/o male sef-referred for rehabilitative care (alcohol, cocaine, opioid). Patient is , a father of two, domiciled, unemployed and supported on SSI benefits. Substance Abuse History: Confirmed by patient. Details in current [facility] report : Smoking history: Current every day smoker. Have you smoked in the past 12 months: Yes. Aproximately how many cigarettes per day: 20. Hx Chewing Tobacco Use: No. Initiated information on smoking cessation: Yes. 'Breaking Loose' booklet given: 11/05/18. - Substance & Tx. History. Hx Alcohol Use: Yes. Hx Substance Use: Yes. Substance Use Type: Alcohol, Cocaine. Hx Substance Use Treatment: Yes ([facility] 09/2018). - Substances abused. Alcohol. Substance route: Oral. Frequency: Daily. Amount used: 2 pt. rum. Age of first use: 10. Date of last use: 10/22/18. Cocaine. Substance route: Injection. Frequency: Daily. Amount used: $50. Age of first use: 17. Date of last use: 10/22/18 Medical History: Remarkable for hepatitis C + history of orthosurgery (fracture of left wrist in 2016) and bilateral inguinal herniorraphy. Psychiatric History: Distant history of two psychiatric hospitalizations ( [facility]). No rehospitalization for past 20 years. Patient is reportedly diagnosed with Bipolar Disorder. Treated with olanzapine 20 mg/day + celexa 20 mg/day + klonopin 1 mg/day. Mr Reed endorses optimal adherence to his OPD care (medications and clinic appointments).[facility] dose = 50 mg/day) in the [place]. Patient admits to a distant history of two suicide attempts (wrist-cutting + burning self). Physical/Sexual Abuse/Trauma History: Patient reports, in this interview, that one brother committed suicide two weeks ago (means not disclosed). Additional Comment: Toxicology not available. Mental Status Exam - Mental Status Exam Alert and Oriented to: Time, Place, Person Cognitive Function: Good Patient Appearance: Well Groomed Mood: Sad, Withdrawn Affect: Mood Congruent, Constricted Patient Behavior: Fatigued, Appropriate, Cooperative Speech Pattern: Clear, Appropriate Voice Loudness: Normal Thought Process: Intact, Goal Oriented Thought Disorder: Not Present Hallucinations: Denies Suicidal Ideation: Denies Homicidal Ideation: Denies Insight/Judgement: Fair Sleep: Fair Appetite: Fair Muscle strength/Tone: Normal Gait/Station: Normal Psychiatric Findings - Problem List ([place] 1, 2,3) (1) Alcohol dependence Current Visit: Yes Status: Chronic (2) Opioid dependence on agonist therapy Current Visit: Yes Status: Chronic (3) Cocaine dependence, uncomplicated Current Visit: Yes Status: Chronic (4) Nicotine dependence Current Visit: Yes Status: Chronic (5) Schizoaffective disorder Current Visit: Yes Status: Chronic Qualifiers: Schizoaffective disorder type: bipolar Qualified Code(s): F25.0 - Schizoaffective disorder, bipolar type Comment: Self-report.On medications.Followed at [facility] outpatient program in the [place]. (6) Substance induced mood disorder Current Visit: Yes Status: Chronic (7) Bereavement Current Visit: Yes Status: Acute - Initial Treatment Plan Initial Treatment Plan: Psychoeducation. Sleep hygiene. AA/NA meetings. Support and empathy provided to patient. Medications resumed : zyprexa 15 mg po hs + celexa 20 mg po daily. Side effects/benefits discussed with patient. Records ( [facility]) reviewed. Consent (verbal) given to MD. Kaur.
[2018-11-06] MEDS: OLANZapine 5 MG TABLET PO SCH (21:19)
[2018-11-06] MEDS: THIAMINE HCL 100 MG TABLET (FP) PO SCH (21:19)
[2018-11-07] MEDS ORDERED: METHADONE HCL 40 MG DISPERSABLE TABLET ONE (05:17)
[2018-11-07] MEDS ORDERED: METHADONE HCL 10 MG TABLET ONE (05:17)
[2018-11-07] MEDS: METHADONE 40 MG, METHADONE 10 MG PO SCH (06:19)
[2018-11-07] MEDS: PRENATAL VITAMINS W/ FOLIC ACID TABLET (FP) PO SCH (09:52)
[2018-11-07] MEDS: CITALOPRAM HYDROBROMIDE 20 MG TABLET (FP) PO SCH (09:52)
[2018-11-07] MEDS: BACITRACIN 0.9 GM PACKET TP SCH (09:52)
[2018-11-07] MEDS: EMTRICITABINE 200MG/TENOFOVIR 300MG PO SCH (09:52)
[2018-11-07] MEDS: NICOTINE 21 MG/24 HOURS TOPICAL PATCH TD SCH (09:53)
[2018-11-07] MEDS: OLANZapine 5 MG TABLET PO SCH (21:56)
[2018-11-07] MEDS: THIAMINE HCL 100 MG TABLET (FP) PO SCH (21:56)
[2018-11-08] MEDS ORDERED: METHADONE HCL 40 MG DISPERSABLE TABLET ONE (02:54)
[2018-11-08] MEDS ORDERED: METHADONE HCL 10 MG TABLET ONE (02:54)
[2018-11-08] MEDS: METHADONE 40 MG, METHADONE 10 MG PO SCH (06:26)
[2018-11-08] MEDS: NICOTINE 21 MG/24 HOURS TOPICAL PATCH TD SCH (09:41)
[2018-11-08] MEDS: BACITRACIN 0.9 GM PACKET TP SCH (09:42)
[2018-11-08] MEDS: PRENATAL VITAMINS W/ FOLIC ACID TABLET (FP) PO SCH (09:42)
[2018-11-08] MEDS: EMTRICITABINE 200MG/TENOFOVIR 300MG PO SCH (09:42)
[2018-11-08] MEDS: CITALOPRAM HYDROBROMIDE 20 MG TABLET (FP) PO SCH (09:42)
--- NOTE | 2018-11-08 13:17 | PN ---
[facility] Progress Note Note: [PATIENT SEEN FOR ABNORMAL U/A RESULTS. PATIENT DENIES BURNING UPON URINATION, URGENCY BUT DOES REPORT FREQUENCY OF URINATION. Laboratory Tests 11/06/18 08:30 Urine Color Yellow Urine Appearance Clear Urine pH 6.0 Ur Specific [place] 1.010 Urine Protein Negative Urine Glucose (UA) Trace Urine Ketones Negative Urine Blood Trace-intact Urine Nitrite Positive Urine Bilirubin Negative Urine Urobilinogen 0.2 Ur Leukocyte Esterase 3+ H Urine WBC (Auto) 95 Urine RBC (Auto) 1 Urine Casts (Auto) 8 U Epithel Cells (Auto) 0.6 Urine Bacteria (Auto) 3680.3 Vital Signs Temperature 98.4 F 11/08/18 07:11 Pulse Rate 90 11/08/18 07:11 Respiratory Rate 18 11/08/18 07:11 Blood Pressure 144/92 11/08/18 07:11 O2 Sat by Pulse Oximetry (%) PE: ALERT AND ORIENTED X 3 SKIN WARM AND DRY GI SOFT, NT, ND NO PELVIC DISCOMFORT AMB AD MARIA ELENA A/P: UTI WILL TREAT WITH BACTRIM DS ONE TAB BID X ONE WEEK ENCOURAGE ORAL FLUIDS CONTINUE TO MONITOR CLINICALLY
[2018-11-08] MEDS: THIAMINE HCL 100 MG TABLET (FP) PO SCH (21:13)
[2018-11-08] MEDS: OLANZapine 5 MG TABLET PO SCH (21:13)
[2018-11-08] MEDS: SULFAMETHOXAZOLE/TRIMETHOPRIM 800MG/160MG D.S. TABLET PO SCH (21:13)
[2018-11-09] MEDS ORDERED: METHADONE HCL 10 MG TABLET ONE (03:11)
[2018-11-09] MEDS ORDERED: METHADONE HCL 40 MG DISPERSABLE TABLET ONE (03:12)
[2018-11-09] MEDS: METHADONE 40 MG, METHADONE 10 MG PO SCH (06:21)
[2018-11-09 07:08] VITALS: BP 142/83; PULSE 86; TEMP 97.8
[2018-11-09] MEDS: BACITRACIN 0.9 GM PACKET TP SCH (09:45)
[2018-11-09] MEDS: PRENATAL VITAMINS W/ FOLIC ACID TABLET (FP) PO SCH (09:45)
[2018-11-09] MEDS: SULFAMETHOXAZOLE/TRIMETHOPRIM 800MG/160MG D.S. TABLET PO SCH (09:45)
[2018-11-09] MEDS: CITALOPRAM HYDROBROMIDE 20 MG TABLET (FP) PO SCH (09:45)
[2018-11-09] MEDS: EMTRICITABINE 200MG/TENOFOVIR 300MG PO SCH (09:45)
[2018-11-09] MEDS: NICOTINE 21 MG/24 HOURS TOPICAL PATCH TD SCH (09:46)
--- NOTE | 2018-11-09 13:42 | PN ---
S Progress Note Note: urine om 11/06 showed elevated leukicytes, will repeat.
--- NOTE | 2018-11-09 18:24 | PN ---
S Progress Note Note: discharge summary from rehab: pt states he has a family emergency and left today. Pt was admitted for alcohol rehab. Pt was diagnosed with UTI and is sent home with bactrim to continue treatment. Pt states will f/u PCP. Truvada PReP renewed as pt will not see PCP for a few weeks
[2018-11-10 07:16] LABS: PH,URINE 5.5 (5.0-8.0); URINE APPEARANCE CLEAR; URINE BILIRUBIN NEGATIVE (NEGATIVE); URINE COLOR YELLOW; URINE GLUCOSE (UA) NEGATIVE (NEGATIVE); URINE KETONE TRACE (NEGATIVE); URINE LEUK ESTERASE 1+ (NEGATIVE); URINE NITRITE NEGATIVE (NEGATIVE); URINE PROTEIN NEGATIVE (NEGATIVE)
[2018-11-10 07:19] LABS: URINE WBC 95 /hpf (0-5)
== END 2018-11-09 18:30 | disposition left against medical advice (07) | DRG 770 ==
LOC: YASAS 12:14 → Y3W 15:18
PROVIDERS: ADMIT Neuromusculoskeletal Medicine & OMM; ATTEND Neuromusculoskeletal Medicine & OMM
PROC: HZ42ZZZ Group Counseling for Substance Abuse Treatment, Cognitive-Behavioral (ICD-10-PCS; principal; 2018-11-05)
DX: F10.20 Alcohol dependence, uncomplicated (principal); F11.20 Opioid dependence, uncomplicated; F14.20 Cocaine dependence, uncomplicated; F17.210 Nicotine dependence, cigarettes, uncomplicated; F25.9 Schizoaffective disorder, unspecified; F19.24 Other psychoactive substance dependence with psychoactive substance-induced mood disorder; F41.9 Anxiety disorder, unspecified; F32.9 Major depressive disorder, single episode, unspecified; B18.2 Chronic viral hepatitis C; N39.0 Urinary tract infection, site not specified; R63.4 Abnormal weight loss; K08.109 Complete loss of teeth, unspecified cause, unspecified class; Z63.4 Disappearance and death of family member; Z88.0 Allergy status to penicillin; Z91.5 Personal history of self-harm
CPT/HCPCS: 81003

== ENCOUNTER 2019-11-29 11:56 | Inpatient (IN) | payer OTHER ==
[2019-11-29] MEDS ORDERED: MAGNESIUM CITRATE 300 ML BOTTLE PO PRN (12:34)
[2019-11-29] MEDS ORDERED: guaiFENesin 200 MG/10 ML 10 ML UNIT-DOSE CUPS PO PRN (12:34)
[2019-11-29] MEDS ORDERED: MAGNESIUM HYDROX 2400MG/30ML ORAL SUSPENSION 30 ML CUP PO PRN (12:34)
[2019-11-29] MEDS ORDERED: P-EPHED 60MG/TRIPROLIDI 2.5MG TABLET PO PRN (12:34)
[2019-11-29] MEDS ORDERED: IBUPROFEN 400 MG TABLET (FP) PO PRN (12:34)
[2019-11-29] MEDS ORDERED: LOPERAMIDE HCL 2 MG CAPSULE PO PRN (12:34)
[2019-11-29] MEDS ORDERED: ACETAMINOPHEN 325 MG TABLET (FP) PO PRN (12:34)
[2019-11-29] MEDS ORDERED: MAG HYDROX/AL HYDROX/SIMETH 30 ML UNIT-DOSE CUP PO PRN (12:34)
[2019-11-29] MEDS ORDERED: TUBERCULIN PPD 5 TU/0.1ML VIAL ID ONE (14:37)
[2019-11-29] MEDS: MELATONIN 5 MG TABLETS PO SCH (21:18)
[2019-11-29] MEDS: THIAMINE HCL 100 MG TABLET (FP) PO SCH (21:18)
[2019-11-29] MEDS: OLANZapine 10 MG TABLET PO SCH (21:20)
[2019-11-29] MEDS ORDERED: OLANZAPINE 20 MG PO SCH (22:00)
[2019-11-30] MEDS ORDERED: METHADONE HCL 10 MG TABLET PO SCH (06:00)
[2019-11-30] MEDS ORDERED: METHADONE HCL 40 MG DISPERSABLE TABLET ONE (06:38)
[2019-11-30] MEDS ORDERED: METHADONE HCL 10 MG TABLET ONE (06:38)
[2019-11-30] MEDS: METHADONE 40 MG, METHADONE 30 MG PO SCH (07:03)
[2019-11-30] MEDS: PRENATAL VITAMINS W/ FOLIC ACID TABLET (FP) PO SCH (09:39)
[2019-11-30] MEDS: CITALOPRAM HYDROBROMIDE 20 MG TABLET PO SCH (09:39)
[2019-11-30] MEDS: NICOTINE 7 MG/24 HOURS TOPICAL PATCH TD SCH (09:39)
[2019-11-30] MEDS: EMTRICITABINE 200MG/TENOFOVIR 300MG PO SCH (09:39)
[2019-11-30] MEDS: NICOTINE POLACRILEX 2 MG GUM BC PRN ×2 (09:40→19:43)
[2019-11-30] MEDS: ALBUTEROL SO4 HFA INHALER IH PRN (13:34)
[2019-11-30] MEDS: MELATONIN 5 MG TABLETS PO SCH (21:09)
[2019-11-30] MEDS: hydrOXYzine PAMOATE 25 MG CAPSULE (FP) PO PRN (21:10)
[2019-11-30] MEDS: THIAMINE HCL 100 MG TABLET (FP) PO SCH (21:10)
[2019-11-30] MEDS: OLANZapine 10 MG TABLET PO SCH (21:10)
[2019-12-01] MEDS ORDERED: METHADONE HCL 10 MG TABLET ONE (06:24)
[2019-12-01] MEDS ORDERED: METHADONE HCL 40 MG DISPERSABLE TABLET ONE (06:24)
[2019-12-01] MEDS: METHADONE 40 MG, METHADONE 30 MG PO SCH (06:37)
[2019-12-01] MEDS: NICOTINE 7 MG/24 HOURS TOPICAL PATCH TD SCH (10:20)
[2019-12-01] MEDS: CITALOPRAM HYDROBROMIDE 20 MG TABLET PO SCH (10:20)
[2019-12-01] MEDS: EMTRICITABINE 200MG/TENOFOVIR 300MG PO SCH (10:20)
[2019-12-01] MEDS: PRENATAL VITAMINS W/ FOLIC ACID TABLET (FP) PO SCH (10:20)
[2019-12-01] MEDS: METHOCARBAMOL 500 MG TABLET PO PRN ×2 (10:34→23:05)
[2019-12-01] MEDS: NICOTINE POLACRILEX 2 MG GUM BC PRN ×2 (14:00→18:45)
[2019-12-01] MEDS: ALBUTEROL SO4 HFA INHALER IH PRN (15:55)
[2019-12-01] MEDS: THIAMINE HCL 100 MG TABLET (FP) PO SCH (23:05)
[2019-12-01] MEDS: hydrOXYzine PAMOATE 25 MG CAPSULE (FP) PO PRN (23:05)
[2019-12-01] MEDS: OLANZapine 10 MG TABLET PO SCH (23:05)
[2019-12-01] MEDS: MELATONIN 5 MG TABLETS PO SCH (23:05)
[2019-12-01] MEDS: LIDOCAINE PATCH REMOVAL MC SCH (23:09)
[2019-12-02] MEDS ORDERED: METHADONE HCL 10 MG TABLET ONE (04:23)
[2019-12-02] MEDS ORDERED: METHADONE HCL 40 MG DISPERSABLE TABLET ONE (04:23)
[2019-12-02] MEDS: METHADONE 40 MG, METHADONE 30 MG PO SCH (06:35)
[2019-12-02] MEDS: PRENATAL VITAMINS W/ FOLIC ACID TABLET (FP) PO SCH (09:17)
[2019-12-02] MEDS: CITALOPRAM HYDROBROMIDE 20 MG TABLET PO SCH (09:17)
[2019-12-02] MEDS: EMTRICITABINE 200MG/TENOFOVIR 300MG PO SCH (09:17)
[2019-12-02] MEDS: METHOCARBAMOL 500 MG TABLET PO PRN ×2 (09:18→21:23)
[2019-12-02] MEDS: NICOTINE 7 MG/24 HOURS TOPICAL PATCH TD SCH (09:18)
[2019-12-02] MEDS: LIDOCAINE 5% TOPICAL PATCH TP SCH (09:18)
[2019-12-02] MEDS: NICOTINE POLACRILEX 2 MG GUM BC PRN ×2 (09:18→16:37)
[2019-12-02] MEDS: ALBUTEROL SO4 HFA INHALER IH PRN ×2 (11:29→21:23)
[2019-12-02] MEDS: MELATONIN 5 MG TABLETS PO SCH (21:23)
[2019-12-02] MEDS: THIAMINE HCL 100 MG TABLET (FP) PO SCH (21:23)
[2019-12-02] MEDS: OLANZapine 10 MG TABLET PO SCH (21:23)
[2019-12-02] MEDS: hydrOXYzine PAMOATE 25 MG CAPSULE (FP) PO PRN (21:23)
[2019-12-02] MEDS: LIDOCAINE PATCH REMOVAL MC SCH (21:24)
[2019-12-03] MEDS ORDERED: METHADONE HCL 40 MG DISPERSABLE TABLET ONE (06:27)
[2019-12-03] MEDS ORDERED: METHADONE HCL 10 MG TABLET ONE (06:27)
[2019-12-03] MEDS: METHADONE 40 MG, METHADONE 30 MG PO SCH (06:28)
[2019-12-03] MEDS: EMTRICITABINE 200MG/TENOFOVIR 300MG PO SCH (08:16)
[2019-12-03] MEDS: ALBUTEROL SO4 HFA INHALER IH PRN ×2 (08:17→12:16)
[2019-12-03] MEDS: NICOTINE POLACRILEX 2 MG GUM BC PRN ×2 (08:22→14:29)
[2019-12-03] MEDS: PRENATAL VITAMINS W/ FOLIC ACID TABLET (FP) PO SCH (09:59)
[2019-12-03] MEDS: NICOTINE 7 MG/24 HOURS TOPICAL PATCH TD SCH (09:59)
[2019-12-03] MEDS: LIDOCAINE 5% TOPICAL PATCH TP SCH (09:59)
[2019-12-03] MEDS: CITALOPRAM HYDROBROMIDE 20 MG TABLET PO SCH (09:59)
[2019-12-03] MEDS: METHOCARBAMOL 500 MG TABLET PO PRN (21:59)
[2019-12-03] MEDS: OLANZapine 10 MG TABLET PO SCH (21:59)
[2019-12-03] MEDS: MELATONIN 5 MG TABLETS PO SCH (21:59)
[2019-12-03] MEDS: THIAMINE HCL 100 MG TABLET (FP) PO SCH (21:59)
[2019-12-03] MEDS: LIDOCAINE PATCH REMOVAL MC SCH (22:00)
[2019-12-03] MEDS: hydrOXYzine PAMOATE 25 MG CAPSULE (FP) PO PRN (22:01)
[2019-12-04] MEDS ORDERED: METHADONE HCL 40 MG DISPERSABLE TABLET ONE (04:03)
[2019-12-04] MEDS ORDERED: METHADONE HCL 10 MG TABLET ONE (04:03)
[2019-12-04] MEDS: METHADONE 40 MG, METHADONE 30 MG PO SCH (06:30)
[2019-12-04] MEDS ORDERED: MASKS NR ONE ×3 (08:18→08:20)
[2019-12-04] MEDS: EMTRICITABINE 200MG/TENOFOVIR 300MG PO SCH (08:32)
[2019-12-04] MEDS: NICOTINE 7 MG/24 HOURS TOPICAL PATCH TD SCH (09:47)
[2019-12-04] MEDS: LIDOCAINE 5% TOPICAL PATCH TP SCH (09:47)
[2019-12-04] MEDS: PRENATAL VITAMINS W/ FOLIC ACID TABLET (FP) PO SCH (09:47)
[2019-12-04] MEDS: NICOTINE POLACRILEX 2 MG GUM BC PRN ×3 (09:47→16:41)
[2019-12-04] MEDS: CITALOPRAM HYDROBROMIDE 20 MG TABLET PO SCH (09:47)
[2019-12-04] MEDS: hydrOXYzine PAMOATE 25 MG CAPSULE (FP) PO PRN (09:49)
[2019-12-04 14:57] LABS: URINE APPEARANCE CLEAR; URINE BILIRUBIN NEGATIVE (NEGATIVE); URINE COLOR YELLOW; URINE GLUCOSE (UA) NEGATIVE (NEGATIVE); URINE KETONE NEGATIVE (NEGATIVE); URINE LEUK ESTERASE NEGATIVE (NEGATIVE); URINE NITRITE NEGATIVE (NEGATIVE); URINE PROTEIN NEGATIVE (NEGATIVE); URINE UROBILINOGEN 0.2 mg/dL (0.2-1.0)
[2019-12-04] MEDS: THIAMINE HCL 100 MG TABLET (FP) PO SCH (21:11)
[2019-12-04] MEDS: OLANZapine 10 MG TABLET PO SCH (21:11)
[2019-12-04] MEDS: LIDOCAINE PATCH REMOVAL MC SCH (21:11)
[2019-12-04] MEDS: MELATONIN 5 MG TABLETS PO SCH (21:12)
[2019-12-05] MEDS ORDERED: METHADONE HCL 10 MG TABLET ONE (04:30)
[2019-12-05] MEDS ORDERED: METHADONE HCL 40 MG DISPERSABLE TABLET ONE (04:31)
[2019-12-05] MEDS: METHADONE 40 MG, METHADONE 30 MG PO SCH (06:34)
[2019-12-05] MEDS: EMTRICITABINE 200MG/TENOFOVIR 300MG PO SCH (07:56)
[2019-12-05] MEDS: NICOTINE POLACRILEX 2 MG GUM BC PRN ×5 (07:57→19:29)
[2019-12-05] MEDS: ALBUTEROL SO4 HFA INHALER IH PRN ×2 (08:57→21:06)
[2019-12-05] MEDS: PRENATAL VITAMINS W/ FOLIC ACID TABLET (FP) PO SCH (10:14)
[2019-12-05] MEDS: LIDOCAINE 5% TOPICAL PATCH TP SCH (10:14)
[2019-12-05] MEDS: CITALOPRAM HYDROBROMIDE 20 MG TABLET PO SCH (10:14)
[2019-12-05] MEDS: NICOTINE 7 MG/24 HOURS TOPICAL PATCH TD SCH (10:17)
[2019-12-05] MEDS: hydrOXYzine PAMOATE 25 MG CAPSULE (FP) PO PRN (14:21)
[2019-12-05] MEDS: METHOCARBAMOL 500 MG TABLET PO PRN (21:07)
[2019-12-05] MEDS: OLANZapine 10 MG TABLET PO SCH (21:07)
[2019-12-05] MEDS: MELATONIN 5 MG TABLETS PO SCH (21:07)
[2019-12-05] MEDS: LIDOCAINE PATCH REMOVAL MC SCH (21:08)
[2019-12-05] MEDS: THIAMINE HCL 100 MG TABLET (FP) PO SCH (21:08)
[2019-12-06] MEDS ORDERED: METHADONE HCL 10 MG TABLET ONE (06:20)
[2019-12-06] MEDS: METHADONE 40 MG, METHADONE 30 MG PO SCH (06:21)
[2019-12-06] MEDS ORDERED: METHADONE HCL 40 MG DISPERSABLE TABLET ONE (06:21)
[2019-12-06] MEDS: EMTRICITABINE 200MG/TENOFOVIR 300MG PO SCH (07:06)
[2019-12-06] MEDS: CITALOPRAM HYDROBROMIDE 20 MG TABLET PO SCH (10:44)
[2019-12-06] MEDS: LIDOCAINE 5% TOPICAL PATCH TP SCH (10:45)
[2019-12-06] MEDS: NICOTINE 7 MG/24 HOURS TOPICAL PATCH TD SCH (10:45)
[2019-12-06] MEDS: PRENATAL VITAMINS W/ FOLIC ACID TABLET (FP) PO SCH (10:45)
[2019-12-06] MEDS: NICOTINE POLACRILEX 2 MG GUM BC PRN ×4 (10:47→20:33)
[2019-12-06] MEDS ORDERED: MASKS NR ONE (18:00)
[2019-12-06] MEDS: ALBUTEROL SO4 HFA INHALER IH PRN (18:03)
[2019-12-06] MEDS: LIDOCAINE PATCH REMOVAL MC SCH (21:27)
[2019-12-06] MEDS: MELATONIN 5 MG TABLETS PO SCH (21:27)
[2019-12-06] MEDS: hydrOXYzine PAMOATE 25 MG CAPSULE (FP) PO PRN (21:28)
[2019-12-06] MEDS: OLANZapine 10 MG TABLET PO SCH (21:28)
[2019-12-06] MEDS: METHOCARBAMOL 500 MG TABLET PO PRN (21:28)
[2019-12-06] MEDS: THIAMINE HCL 100 MG TABLET (FP) PO SCH (21:28)
[2019-12-06] MEDS ORDERED: SUVOREXANT 10 MG TABLET PO PRN (22:00)
[2019-12-07] MEDS ORDERED: METHADONE HCL 10 MG TABLET ONE (04:08)
[2019-12-07] MEDS ORDERED: METHADONE HCL 40 MG DISPERSABLE TABLET ONE (04:08)
[2019-12-07] MEDS: METHADONE 40 MG, METHADONE 30 MG PO SCH (06:18)
[2019-12-07] MEDS: NICOTINE POLACRILEX 2 MG GUM BC PRN ×4 (08:35→15:27)
[2019-12-07] MEDS: EMTRICITABINE 200MG/TENOFOVIR 300MG PO SCH (08:36)
[2019-12-07] MEDS: CITALOPRAM HYDROBROMIDE 20 MG TABLET PO SCH (10:45)
[2019-12-07] MEDS: NICOTINE 7 MG/24 HOURS TOPICAL PATCH TD SCH (10:45)
[2019-12-07] MEDS: LIDOCAINE 5% TOPICAL PATCH TP SCH (10:45)
[2019-12-07] MEDS: PRENATAL VITAMINS W/ FOLIC ACID TABLET (FP) PO SCH (10:45)
[2019-12-07] MEDS ORDERED: METHYL SALICYLATE/MENTHOL OINT 30 GM TUBE TP SCH (12:00)
[2019-12-07] MEDS: ALBUTEROL SO4 HFA INHALER IH PRN (12:09)
[2019-12-07 18:01] VITALS: BP 134/76; PULSE 114; TEMP 98.2
[2019-12-07] MEDS ORDERED: SUVOREXANT 10 MG TABLET PO PRN (22:00)
== END 2019-12-07 17:27 | disposition home or self-care (01) | DRG 772 ==
LOC: YASAS 11:56 → Y5N 11:59
PROVIDERS: ADMIT Allergy & Immunology; ATTEND Allergy & Immunology
PROC: HZ42ZZZ Group Counseling for Substance Abuse Treatment, Cognitive-Behavioral (ICD-10-PCS; principal; 2019-11-29)
DX: F10.20 Alcohol dependence, uncomplicated (principal); F11.20 Opioid dependence, uncomplicated; F14.20 Cocaine dependence, uncomplicated; F17.210 Nicotine dependence, cigarettes, uncomplicated; F25.0 Schizoaffective disorder, bipolar type; F19.24 Other psychoactive substance dependence with psychoactive substance-induced mood disorder; Z21 Asymptomatic human immunodeficiency virus [HIV] infection status; G40.909 Epilepsy, unspecified, not intractable, without status epilepticus; G47.00 Insomnia, unspecified; M54.5 Low back pain; G89.29 Other chronic pain; B18.2 Chronic viral hepatitis C; S09.90XA Unspecified injury of head, initial encounter; M25.562 Pain in left knee; M25.522 Pain in left elbow; W18.09XA Striking against other object with subsequent fall, initial encounter; Y93.89 Activity, other specified; Y92.238 Other place in hospital as the place of occurrence of the external cause; Y99.8 Other external cause status; Z63.4 Disappearance and death of family member; Z91.5 Personal history of self-harm; Z99.89 Dependence on other enabling machines and devices; Z91.410 Personal history of adult physical and sexual abuse; Z88.0 Allergy status to penicillin
CPT/HCPCS: 36415; 81003; 87491; 87591; 87661

== ENCOUNTER 2019-12-31 10:35 | Inpatient (IN) | payer OTHER ==
--- NOTE | 2019-12-31 13:25 | BHS.RME ---
Substance Use & Tx History - Substance Use History Alcohol Substance amount: 2pints of rum/ Frequency of use: Daily Substance route: Oral Date of Last Use: 12/30/19 Cocaine- Powder Substance amount: 60$ of cocaine Frequency of use: Daily Substance route: Injection (ex: intravenous or skin popping) Date of Last Use: 12/30/19 Heroin Substance amount: heroin 10 bgs Frequency of use: Daily Substance route: Injection (ex: intravenous or skin popping) Date of Last Use: 12/30/19 - Last Treatment Date of last treatment: 11/26/2019 to 11/29/2019 Where was last treatment: Detox Physical/Psych/Mental Status - Behavior General Behavior: Increased activity (restlessness, agitation) - Cooperativeness Cooperativeness: Cooperative - Thinking Thought Processes: Logical Thought content: Future oriented - Physical Health Problems Is patient presently having any pain?: No Does patient presently have any injuries (include location): No Does patient currently have a fever: No CIWA Nausea/Vomitin Muscle Tremors: 3 Anxiety: 3 Agitation: 3 Paroxysmal Sweats: 1-Minimal Palms Moist Orientation: 0-Oriented Tacttile Disturbances: 1-Very Mild Itch/Numbness Auditory Disturbances: 0-None Visual Disturbances: 0-None Headache: 2-Mild CIWA-Ar Total Score: 15
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
[2019-12-31] MEDS ORDERED: ACETAMINOPHEN 325 MG TABLET (FP) PO PRN ×2 (14:03)
[2019-12-31] MEDS ORDERED: MAGNESIUM CITRATE 300 ML BOTTLE PO PRN (14:03)
[2019-12-31] MEDS ORDERED: IBUPROFEN 400 MG TABLET (FP) PO PRN (14:03)
[2019-12-31] MEDS ORDERED: MAGNESIUM HYDROX 2400MG/30ML ORAL SUSPENSION 30 ML CUP PO PRN (14:03)
[2019-12-31] MEDS ORDERED: MENTHOL/PHENOL 1 EACH UD MM PRN (14:03)
[2019-12-31] MEDS ORDERED: MAG HYDROX/AL HYDROX/SIMETH 30 ML UNIT-DOSE CUP PO PRN (14:03)
[2019-12-31] MEDS ORDERED: BISMUTH SUBSALICYLATE 524 MG/30 ML UD PO PRN (14:03)
[2019-12-31] MEDS ORDERED: chlordiazePOXIDE HCL 25 MG CAPSULE PO PRN (14:03)
[2019-12-31] MEDS ORDERED: METHOCARBAMOL 500 MG TABLET PO PRN (14:03)
[2019-12-31 14:33] VITALS: BMI 22.6
[2019-12-31] MEDS ORDERED: ONDANSETRON *ODT* 4 MG TABLET SL ONE (14:45)
--- NOTE | 2019-12-31 17:05 | PN ---
[facility] Progress Note Note: Psychiatry Attending's note : Psychiatric interview deferred. Patient is resting in bed. Asleep. No evidence of distress.
[2019-12-31] MEDS: chlordiazePOXIDE HCL 25 MG CAPSULE PO SCH ×2 (17:35→22:12)
[2019-12-31] MEDS: hydrOXYzine PAMOATE 25 MG CAPSULE (FP) PO SCH ×2 (17:37→22:12)
[2019-12-31] MEDS: NICOTINE POLACRILEX 2 MG GUM BUC PRN ×2 (17:39→19:45)
[2019-12-31] MEDS: ALBUTEROL SO4 HFA INHALER IH PRN (20:05)
[2019-12-31] MEDS: THIAMINE HCL 100 MG TABLET (FP) PO SCH (22:12)
[2019-12-31] MEDS: MELATONIN 5 MG TABLETS PO SCH (22:12)
[2020-01-01] MEDS: ALBUTEROL SO4 HFA INHALER IH PRN (00:43)
[2020-01-01] MEDS ORDERED: METHADONE HCL 40 MG DISPERSABLE TABLET ONE (04:30)
[2020-01-01] MEDS ORDERED: METHADONE HCL 10 MG TABLET ONE (04:30)
[2020-01-01] MEDS: chlordiazePOXIDE HCL 25 MG CAPSULE PO SCH ×3 (05:15→22:16)
[2020-01-01] MEDS: hydrOXYzine PAMOATE 25 MG CAPSULE (FP) PO SCH (05:15)
[2020-01-01] MEDS ORDERED: METHADONE 40 MG, METHADONE 30 MG PO ONE (06:00)
[2020-01-01] MEDS ORDERED: METHADONE HCL 10 MG TABLET PO ONE (06:00)
--- NOTE | 2020-01-01 08:14 | PN ---
[facility] Progress Note Note: Patient was found on the floor. Fall was unwitnessed. Fall protocol #1 initiated. Patient reports that he was brushing his teeth, slipped, fell backwards and hit the back of his head on the floor. Patient is noted with a bump/swelling on the back of the head. He is alert and oriented x 3, anxious and reportshead and right elbow pain. Patient is to be transferred to emergency room. Endorsed to Dr. Payne Vital Signs Temperature 97.5 F L 01/01/20 07:50 Pulse Rate 82 01/01/20 07:50 Respiratory Rate 18 01/01/20 07:50 Blood Pressure 106/74 01/01/20 07:50 O2 Sat by Pulse Oximetry (%) 96 01/01/20 05:14 Action: Transfer patient to ER Endorsed to provider, Ms. Pruett to review patients medication
[2020-01-01 09:16] LABS: HEMATOCRIT 34.1 % (35.4-49); MCH 29.6 pg (25.7-33.7); MCHC 32.3 g/dl (32.0-35.9); MEAN CELL VOLUME 91.4 fl (80-96); MEAN PLT VOLUME 9.5 fl (7.5-11.1); PLATELET COUNT 240 K/MM3 (134-434); RBC 3.73 M/mm3 (4.00-5.60); RDW 15.3 % (11.9-15.9); WHITE BLOOD COUNT 4.3 K/mm3 (4.0-10.0)
--- NOTE | 2020-01-01 09:23 | PN ---
S Progress Note Note: 49 years old male admitted on 12/31/19 for alcohol withdrawal sx management received report that mr morrell fell and transferred to ER due to unwitnessed fall I have not seen nor evaluated the patient chart reviewed discontinue vistaril librium dosage adjustment to a lower dosage to avoid fall
[2020-01-01 09:29] LABS: ALBUMIN 3.6 g/dl (3.4-5.0); BILIRUBIN,TOTAL 0.4 mg/dL (0.2-1); BLOOD UREA NITROGEN 18.2 mg/dL (7-18); CALCIUM 9.2 mg/dL (8.5-10.1); CREATININE 1.3 mg/dL (0.55-1.3); POTASSIUM 4.6 mmol/L (3.5-5.1); TOT PROT 7.6 g/dl (6.4-8.2)
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
[2020-01-01] MEDS: PRENATAL VITAMINS W/ FOLIC ACID TABLET (FP) PO SCH (13:10)
--- NOTE | 2020-01-01 13:21 | PN ---
S CIWA - CIWA Score Nausea/Vomitin-No Nausea/No Vomiting Muscle Tremors: 2 Anxiety: 2 Agitation: 1-Slight > Activity Paroxysmal Sweats: 1-Minimal Palms Moist Orientation: 0-Oriented Tacttile Disturbances: 1-Very Mild Itch/Numbness Auditory Disturbances: 0-None Visual Disturbances: 2-Mild Sensitivity Headache: 1-Very Mild CIWA-Ar Total Score: 10 S Progress Note (SOAP) Subjective: 49 years old male admitted on 12/31/19 for alcohol withdrawal sx management treating with librium detox regiment return from ER treated with post fall medically cleared from ER return to [facility] for alcohol detox alert oriented x 3 speech clearly coherently ambulating with limp slow gaits cane for ambulation Objective: 01/01/20 13:19 Vital Signs - 24 hr 12/31/19 12/31/19 12/31/19 14:30 15:02 16:32 Temperature 97.6 F 97.1 F L 97.5 F L Pulse Rate 93 H 89 82 Respiratory 18 18 18 Rate Blood Pressure 115/76 108/70 106/70 O2 Sat by Pulse 97 Oximetry (%) 12/31/19 01/01/20 01/01/20 20:31 01:03 03:33 Temperature 97.1 F L Pulse Rate 94 H Respiratory 18 18 18 Rate Blood Pressure 117/78 O2 Sat by Pulse 98 Oximetry (%) 01/01/20 01/01/20 01/01/20 05:14 07:41 07:50 Temperature 97.1 F L 97.5 F L 97.5 F L Pulse Rate 79 82 82 Respiratory 18 18 18 Rate Blood Pressure 133/83 106/74 106/74 O2 Sat by Pulse 96 Oximetry (%) 01/01/20 01/01/20 12:46 12:53 Temperature 97.1 F L 97.1 F L Pulse Rate 71 71 Respiratory 18 18 Rate Blood Pressure 106/73 106/73 O2 Sat by Pulse 100 Oximetry (%) Laboratory Tests 01/01/20 01/01/20 01/01/20 07:35 07:35 07:35 WBC 4.3 RBC 3.73 L Hgb 11.0 L Hct 34.1 L MCV 91.4 MCH 29.6 MCHC 32.3 RDW 15.3 Plt Count 240 MPV 9.5 Sodium Potassium Chloride Carbon Dioxide Anion Gap BUN Creatinine Est GFR (CKD-EPI)AfAm Est GFR (CKD-EPI)NonAf Random Glucose Calcium Total Bilirubin AST ALT Alkaline Phosphatase Total Protein Albumin Syphilis Serology Non-reactive HIV Ag/Ab Combo Qual Negative 01/01/20 07:35 WBC RBC Hgb Hct MCV MCH MCHC RDW Plt Count MPV Sodium 140 Potassium 4.6 Chloride 104 Carbon Dioxide 28 Anion Gap 7 L BUN 18.2 H Creatinine 1.3 Est GFR (CKD-EPI)AfAm 73.22 Est GFR (CKD-EPI)NonAf 63.18 Random Glucose 99 Calcium 9.2 Total Bilirubin 0.4 AST 22 ALT 20 Alkaline Phosphatase 77 Total Protein 7.6 Albumin 3.6 Syphilis Serology HIV Ag/Ab Combo Qual lab noted Assessment: 01/01/20 13:20 alcohol withdrawal Plan: librium regiment
[2020-01-01] MEDS: NICOTINE POLACRILEX 2 MG GUM BUC PRN ×3 (14:09→19:07)
[2020-01-01] MEDS: THIAMINE HCL 100 MG TABLET (FP) PO SCH (21:43)
[2020-01-01] MEDS: OLANZapine 10 MG TABLET PO SCH (21:44)
[2020-01-01] MEDS: MELATONIN 5 MG TABLETS PO SCH (21:44)
[2020-01-02] MEDS ORDERED: chlordiazePOXIDE HCL 25 MG CAPSULE PO SCH (05:00)
[2020-01-02] MEDS: chlordiazePOXIDE HCL 25 MG CAPSULE PO SCH (06:01)
[2020-01-02] MEDS: chlordiazePOXIDE HCL 10 MG CAPSULE PO SCH ×4 (06:01→22:09)
--- NOTE | 2020-01-02 07:35 | PN ---
[facility] Progress Note Note: Patient was noted with a laceration and swelling of his left eyebrow. He reports that he hit his head on the bathroom door. Patient refused to go to emergency room for evaluation and signed the refusal of treatment form. He is alert and oriented x 3 and ambulates with unsteady gait. Vital Signs Temperature 97.1 F L 01/02/20 07:45 Pulse Rate 62 01/02/20 07:45 Respiratory Rate 18 01/02/20 07:45 Blood Pressure 121/81 01/02/20 07:45 O2 Sat by Pulse Oximetry (%) 100 01/02/20 07:00 Laboratory Last Values WBC 4.3 K/mm3 (4.0-10.0) 01/01/20 07:35 RBC 3.73 M/mm3 (4.00-5.60) L 01/01/20 07:35 Hgb 11.0 GM/dL (11.7-16.9) L 01/01/20 07:35 Hct 34.1 % (35.4-49) L 01/01/20 07:35 MCV 91.4 fl (80-96) 01/01/20 07:35 MCH 29.6 pg (25.7-33.7) 01/01/20 07:35 MCHC 32.3 g/dl (32.0-35.9) 01/01/20 07:35 RDW 15.3 % (11.9-15.9) 01/01/20 07:35 Plt Count 240 K/MM3 (134-434) 01/01/20 07:35 MPV 9.5 fl (7.5-11.1) 01/01/20 07:35 Sodium 140 mmol/L (136-145) 01/01/20 07:35 Potassium 4.6 mmol/L (3.5-5.1) 01/01/20 07:35 Chloride 104 mmol/L (98-107) 01/01/20 07:35 Carbon Dioxide 28 mmol/L (21-32) 01/01/20 07:35 Anion Gap 7 MMOL/L (8-16) L 01/01/20 07:35 BUN 18.2 mg/dL (7-18) H 01/01/20 07:35 Creatinine 1.3 mg/dL (0.55-1.3) 01/01/20 07:35 Est GFR (CKD-EPI)AfAm 73.22 01/01/20 07:35 Est GFR (CKD-EPI)NonAf 63.18 01/01/20 07:35 Random Glucose 99 mg/dL (74-106) 01/01/20 07:35 Calcium 9.2 mg/dL (8.5-10.1) 01/01/20 07:35 Total Bilirubin 0.4 mg/dL (0.2-1) 01/01/20 07:35 AST 22 U/L (15-37) 01/01/20 07:35 ALT 20 U/L (13-61) 01/01/20 07:35 Alkaline Phosphatase 77 U/L (45-117) 01/01/20 07:35 Total Protein 7.6 g/dl (6.4-8.2) 01/01/20 07:35 Albumin 3.6 g/dl (3.4-5.0) 01/01/20 07:35 Syphilis Serology Non-reactive (NONREACTIVE) 01/01/20 07:35 HIV Ag/Ab Combo Qual Negative (NEGATIVE) 01/01/20 07:35 Action: Tylenol 650mg tablet oral Q6H prn Bacitracin 1 application topical BID 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 examination as per protocol Maintain fall precaution Endorsed to Provider Ms. Pruett to review medications
--- NOTE | 2020-01-02 09:18 | PN ---
S CIWA - CIWA Score Nausea/Vomitin-No Nausea/No Vomiting Muscle Tremors: 1-None Visible, but [place] Anxiety: 2 Agitation: 1-Slight > Activity Paroxysmal Sweats: 1-Minimal Palms Moist Orientation: 0-Oriented Tacttile Disturbances: 1-Very Mild Itch/Numbness Auditory Disturbances: 0-None Visual Disturbances: 1-Very Mild Sensitivity Headache: 0-None Present CIWA-Ar Total Score: 7 BHS Progress Note (SOAP) Subjective: 49 years old male admitted on 12/31/19 for alcohol withdrawal sx management treating with librium detox regiment above note appreciated left eye brow 1.5cm line skin abrasion noted clean with soap and water pad dry bacitracine ointment applied non tender psychotropic medications for possible dosage adjustment psychiatric referral ambulating with cane slow steady encourage to use cane while out of bed lab ammonia serum level hepatitis c Objective: 01/02/20 09:27 Vital Signs - 24 hr 01/01/20 01/01/20 01/01/20 12:46 12:53 13:45 Temperature 97.1 F L 97.1 F L 96.9 F L Pulse Rate 71 71 81 Respiratory 18 18 18 Rate Blood Pressure 106/73 106/73 100/65 O2 Sat by Pulse 100 Oximetry (%) 01/01/20 01/01/20 01/01/20 15:45 16:16 16:30 Temperature 97.1 F L 97.1 F L 97.3 F L Pulse Rate 81 81 81 Respiratory 18 18 17 Rate Blood Pressure 111/72 116/72 109/67 O2 Sat by Pulse Oximetry (%) 01/01/20 01/01/20 01/02/20 19:45 23:45 00:19 Temperature 97.1 F L 97.8 F Pulse Rate 78 75 Respiratory 18 18 18 Rate Blood Pressure 125/79 111/72 O2 Sat by Pulse 99 Oximetry (%) 01/02/20 01/02/20 01/02/20 03:21 03:41 03:45 Temperature 97.6 F 97.6 F Pulse Rate 76 76 Respiratory 18 18 18 Rate Blood Pressure 103/78 103/78 O2 Sat by Pulse 97 Oximetry (%) 01/02/20 01/02/20 01/02/20 06:01 06:30 07:00 Temperature 97.6 F 97.1 F L Pulse Rate 60 62 Respiratory 16 18 18 Rate Blood Pressure 141/86 121/81 O2 Sat by Pulse 99 100 Oximetry (%) 01/02/20 01/02/20 01/02/20 07:41 07:45 08:34 Temperature 97.1 F L 97.1 F L 97.2 F L Pulse Rate 62 62 77 Respiratory 18 18 18 Rate Blood Pressure 121/81 121/81 129/76 O2 Sat by Pulse Oximetry (%) 01/02/20 09:00 Temperature 97.3 F L Pulse Rate 83 Respiratory 18 Rate Blood Pressure 121/85 O2 Sat by Pulse Oximetry (%) Laboratory Tests 01/01/20 01/01/20 01/01/20 07:35 07:35 07:35 WBC 4.3 RBC 3.73 L Hgb 11.0 L Hct 34.1 L MCV 91.4 MCH 29.6 MCHC 32.3 RDW 15.3 Plt Count 240 MPV 9.5 Sodium Potassium Chloride Carbon Dioxide Anion Gap BUN Creatinine Est GFR (CKD-EPI)AfAm Est GFR (CKD-EPI)NonAf Random Glucose Calcium Total Bilirubin AST ALT Alkaline Phosphatase Total Protein Albumin Syphilis Serology Non-reactive HIV Ag/Ab Combo Qual Negative 01/01/20 07:35 WBC RBC Hgb Hct MCV MCH MCHC RDW Plt Count MPV Sodium 140 Potassium 4.6 Chloride 104 Carbon Dioxide 28 Anion Gap 7 L BUN 18.2 H Creatinine 1.3 Est GFR (CKD-EPI)AfAm 73.22 Est GFR (CKD-EPI)NonAf 63.18 Random Glucose 99 Calcium 9.2 Total Bilirubin 0.4 AST 22 ALT 20 Alkaline Phosphatase 77 Total Protein 7.6 Albumin 3.6 Syphilis Serology HIV Ag/Ab Combo Qual Assessment: 01/02/20 09:36 alcohol withdrawal 01/02/20 09:37 multiple fall Plan: librium regiment ammonia hcv psychiatric referral
[2020-01-02] MEDS ORDERED: METHADONE HCL 10 MG TABLET PO ONE (10:03)
[2020-01-02] MEDS ORDERED: METHADONE 40 MG, METHADONE 30 MG PO ONE (10:15)
[2020-01-02] MEDS ORDERED: METHADONE HCL 40 MG DISPERSABLE TABLET ONE (10:17)
[2020-01-02] MEDS ORDERED: METHADONE HCL 10 MG TABLET ONE (10:17)
[2020-01-02] MEDS: PRENATAL VITAMINS W/ FOLIC ACID TABLET (FP) PO SCH (10:25)
[2020-01-02] MEDS: CITALOPRAM HYDROBROMIDE 20 MG TABLET PO SCH (10:25)
[2020-01-02] MEDS: BACITRACIN 0.9 GM PACKET TP SCH ×2 (10:26→22:09)
[2020-01-02] MEDS ORDERED: MASKS NR ONE (16:34)
[2020-01-02] MEDS: NICOTINE POLACRILEX 2 MG GUM BUC PRN (18:27)
[2020-01-02] MEDS: OLANZapine 10 MG TABLET PO SCH (22:09)
[2020-01-02] MEDS: MELATONIN 5 MG TABLETS PO SCH (22:09)
[2020-01-02] MEDS: THIAMINE HCL 100 MG TABLET (FP) PO SCH (22:09)
[2020-01-03] MEDS ORDERED: chlordiazePOXIDE HCL 10 MG CAPSULE PO PRN
[2020-01-03] MEDS ORDERED: METHADONE HCL 10 MG TABLET ONE (04:04)
[2020-01-03] MEDS ORDERED: METHADONE HCL 40 MG DISPERSABLE TABLET ONE (04:04)
[2020-01-03] MEDS ORDERED: chlordiazePOXIDE HCL 10 MG CAPSULE PO SCH (05:00)
[2020-01-03] MEDS: METHADONE 40 MG, METHADONE 30 MG PO SCH (05:31)
[2020-01-03] MEDS: chlordiazePOXIDE 5 MG CAPSULE PO SCH ×4 (05:31→22:56)
[2020-01-03] MEDS ORDERED: METHADONE HCL 10 MG TABLET PO SCH (06:00)
[2020-01-03] MEDS: ALBUTEROL SO4 HFA INHALER IH PRN ×2 (07:04→11:49)
--- NOTE | 2020-01-03 09:33 | PN ---
Psychiatric Progress Note Vital Signs: Vital Signs Period Temp Pulse Resp BP Sys/Méndez Pulse Ox Last 24 Hr 97.1 F-97.8 F 73-98 16-20 105-124/68-85 97-100 Date of Session: 01/03/20 Chief Complaint:: " I slipped on the soap" HPI: Patient admitted to for alcohol, cocaine, and opioid dependence. Consultation ordered for possible medication adjustment due to two falls on the unit. ROS: Patient is ambulatory, alert +oriented X3. Current Medications: Active Medications Generic Name Dose Route Start Last Admin Trade Name Freq PRN Reason Stop Dose Admin Acetaminophen 650 mg 12/31/19 14:03 Tylenol - PO Q6H PRN PAIN LEVEL 4 - 6 Acetaminophen 650 mg 12/31/19 14:03 Tylenol - PO Q6H PRN FEVER Al Hydroxide/Mg Hydroxide 30 ml 12/31/19 14:03 Mylanta Oral Suspension - PO Q6H PRN DYSPEPSIA Albuterol Sulfate 2 puff 12/31/19 14:13 01/03/20 07:04 Ventolin Hfa Inhaler - IH 2 puff Q4H PRN Administration ASTHMA Bacitracin 0.9 gm 01/02/20 10:00 01/02/20 22:09 Bacitracin - TP 0.9 gm BID KATHLEEN Administration Bismuth Subsalicylate 524 mg 12/31/19 14:03 Pepto-Bismol - PO Q1H PRN DIARRHEA Chlordiazepoxide HCl 10 mg 01/03/20 00:00 Librium - PO 01/04/20 00:00 Q4H PRN WITHDRAWAL(CONT SUBST) Chlordiazepoxide HCl 5 mg 01/05/20 05:00 Librium - PO 01/05/20 05:01 ONCE@0500 ONE Chlordiazepoxide HCl 5 mg 01/04/20 05:00 Librium - PO 01/04/20 17:01 Q12H KATHLEEN Chlordiazepoxide HCl 5 mg 01/03/20 05:00 01/03/20 05:31 Librium - PO 01/03/20 23:01 5 mg P4M-SQU KATHLEEN Administration Citalopram Hydrobromide 20 mg 01/02/20 10:00 01/02/20 10:25 Celexa - PO 20 mg DAILY KATHLEEN Administration Eucalyptus/Menthol/Phenol/Sorbitol 1 each 12/31/19 14:03 Cepastat Lozenge - MM 01/06/20 14:03 Q4H PRN SORE THROAT Ibuprofen 400 mg 12/31/19 14:03 Motrin - PO Q6H PRN PAIN LEVEL 1 - 3 Magnesium Citrate 300 ml 12/31/19 14:03 Citroma - PO Q48H PRN CONSTIPATION Magnesium Hydroxide 30 ml 12/31/19 14:03 Milk Of Magnesia - PO PRN PRN CONSTIPATION Melatonin 5 mg 12/31/19 22:00 01/02/20 22:09 Melatonin PO 5 mg HS KATHLEEN Administration Methadone HCl 40 mg/ Methadone 70 mg 01/03/20 06:00 01/03/20 05:31 HCl 30 mg PO 01/09/20 06:01 70 mg DAILY@0600 KATHLEEN Administration Methocarbamol 500 mg 12/31/19 14:03 Robaxin - PO 01/06/20 14:03 Q6H PRN MUSCLE SPASMS Nicotine Polacrilex 2 mg 12/31/19 14:03 01/02/20 18:27 Nicorette Gum - BUC 2 mg Q2H PRN Administration NICOTINE REPLACEMENT RX Olanzapine 20 mg 01/01/20 22:00 01/02/20 22:09 Zyprexa - PO 20 mg HS KATHLEEN Administration Multivit/Folic Acid/Iron 1 tab 01/01/20 10:00 01/02/20 10:25 Vitamins (Sjr) - PO 1 tab DAILY KATHLEEN Administration Thiamine HCl 100 mg 12/31/19 22:00 01/02/20 22:09 Vitamin B1 - PO 100 mg HS KATHLEEN Administration Medication(s) Change(s): No Current Side Effect: No Lab tests ordered: No Lab tests reviewed: Yes Provider note:: Consultation ordered after patient had a second fall while in detox. Patient presents as ambulatory, alert +oriented X3. No complaints of dizziness or fatigue. Patient reports falling last night after slipping on soap that was on the floor after washing his face. Vital signs within normal limits. Patient is prescribed is celexa 20mg + Zyprexa 20mg. Patient has been on this medication regiman for several years. At this time psychotropic medications do not need to be adjusted. Patient needs to be reminded to always ambulate with his cane. Case discussed with SHAHRZAD Pruett. Total face to face time:: 25 Mental Status Exam - Mental Status Exam Alert and Oriented to: Time, Place, Person Cognitive Function: Good Patient Appearance: Well Groomed Mood: Hopeful Affect: Appropriate Patient Behavior: Cooperative Speech Pattern: Appropriate Voice Loudness: Normal Thought Process: Intact, Goal Oriented Thought Disorder: Not Present Hallucinations: Denies Suicidal Ideation: Denies Homicidal Ideation: Denies Insight/Judgement: Poor Sleep: Fair Appetite: Fair Muscle strength/Tone: Normal Gait/Station: Other (Ambulates with a cane.) Psychiatric Treatment Plan - Problem List (1) Alcohol dependence with uncomplicated withdrawal Comment: .. (2) Alcohol use disorder Comment: . (3) Cocaine dependence, uncomplicated Comment: . (4) Opioid dependence on agonist therapy Comment: . (5) Schizoaffective disorder Qualifiers: Schizoaffective disorder type: bipolar Qualified Code(s): F25.0 - Schizoaffective disorder, bipolar type
--- NOTE | 2020-01-03 10:00 | PN ---
S CIWA - CIWA Score Nausea/Vomitin-Mild Nausea/No Vomiting Muscle Tremors: 1-None Visible, but [place] Anxiety: 1-Mildly Anxious Agitation: 0-Normal Activity Paroxysmal Sweats: No Perspiration Orientation: 0-Oriented Tacttile Disturbances: 1-Very Mild Itch/Numbness Auditory Disturbances: 0-None Visual Disturbances: 0-None Headache: 0-None Present CIWA-Ar Total Score: 4 BHS Progress Note (SOAP) Subjective: 49 years old male admitted on 12/31/19 for alcohol withdrawal sx management treating with librium detox regiment ambulating with cane slow steady gaits denies dizziness no shortness of breath slept through the night good hygiene Objective: 01/03/20 09:59 Vital Signs - 24 hr 01/02/20 01/02/20 01/02/20 11:00 12:47 16:31 Temperature 97.8 F 97.8 F 97.3 F L Pulse Rate 73 84 78 Respiratory 18 18 16 Rate Blood Pressure 121/85 105/72 117/78 O2 Sat by Pulse 97 Oximetry (%) 01/02/20 01/02/20 01/03/20 20:33 21:19 00:30 Temperature 97.3 F L Pulse Rate 88 Respiratory 16 18 Rate Blood Pressure 106/68 O2 Sat by Pulse 98 Oximetry (%) 01/03/20 01/03/20 01/03/20 03:30 06:09 08:32 Temperature 97.1 F L 97.7 F Pulse Rate 87 98 H Respiratory 20 18 18 Rate Blood Pressure 124/83 115/72 O2 Sat by Pulse 100 Oximetry (%) Laboratory Tests 12/31/19 01/01/20 01/01/20 14:30 07:35 07:35 WBC RBC Hgb Hct MCV MCH MCHC RDW Plt Count MPV Sodium Potassium Chloride Carbon Dioxide Anion Gap BUN Creatinine Est GFR (CKD-EPI)AfAm Est GFR (CKD-EPI)NonAf Random Glucose Calcium Total Bilirubin AST ALT Alkaline Phosphatase Total Protein Albumin Syphilis Serology Non-reactive COVID-19 ([facility]) Not detected HIV Ag/Ab Combo Qual Negative 01/01/20 01/01/20 07:35 07:35 WBC 4.3 RBC 3.73 L Hgb 11.0 L Hct 34.1 L MCV 91.4 MCH 29.6 MCHC 32.3 RDW 15.3 Plt Count 240 MPV 9.5 Sodium 140 Potassium 4.6 Chloride 104 Carbon Dioxide 28 Anion Gap 7 L BUN 18.2 H Creatinine 1.3 Est GFR (CKD-EPI)AfAm 73.22 Est GFR (CKD-EPI)NonAf 63.18 Random Glucose 99 Calcium 9.2 Total Bilirubin 0.4 AST 22 ALT 20 Alkaline Phosphatase 77 Total Protein 7.6 Albumin 3.6 Syphilis Serology COVID-19 ([facility]) HIV Ag/Ab Combo Qual lab noted Assessment: 01/03/20 10:00 alcohol withdrawal Plan: librium regiment
[2020-01-03] MEDS: CITALOPRAM HYDROBROMIDE 20 MG TABLET PO SCH (10:06)
[2020-01-03] MEDS: PRENATAL VITAMINS W/ FOLIC ACID TABLET (FP) PO SCH (10:06)
[2020-01-03] MEDS: BACITRACIN 0.9 GM PACKET TP SCH ×2 (10:07→23:03)
[2020-01-03 10:32] LABS: PH,URINE 5.5 (5.0-8.0); URINE APPEARANCE CLEAR; URINE BILIRUBIN NEGATIVE (NEGATIVE); URINE COLOR YELLOW; URINE GLUCOSE (UA) NEGATIVE (NEGATIVE); URINE KETONE NEGATIVE (NEGATIVE); URINE LEUK ESTERASE NEGATIVE (NEGATIVE); URINE NITRITE NEGATIVE (NEGATIVE); URINE PROTEIN NEGATIVE (NEGATIVE); URINE UROBILINOGEN 0.2 mg/dL (0.2-1.0)
[2020-01-03] MEDS: NICOTINE POLACRILEX 2 MG GUM BUC PRN ×3 (13:27→20:30)
--- NOTE | 2020-01-03 20:59 | PN ---
[facility] Progress Note Note: Patient's ammonia level is 133.90 umol/L. Patient is confused and ambulates with unsteady gait Laboratory Last Values WBC 4.3 K/mm3 (4.0-10.0) 01/01/20 07:35 RBC 3.73 M/mm3 (4.00-5.60) L 01/01/20 07:35 Hgb 11.0 GM/dL (11.7-16.9) L 01/01/20 07:35 Hct 34.1 % (35.4-49) L 01/01/20 07:35 MCV 91.4 fl (80-96) 01/01/20 07:35 MCH 29.6 pg (25.7-33.7) 01/01/20 07:35 MCHC 32.3 g/dl (32.0-35.9) 01/01/20 07:35 RDW 15.3 % (11.9-15.9) 01/01/20 07:35 Plt Count 240 K/MM3 (134-434) 01/01/20 07:35 MPV 9.5 fl (7.5-11.1) 01/01/20 07:35 Sodium 140 mmol/L (136-145) 01/01/20 07:35 Potassium 4.6 mmol/L (3.5-5.1) 01/01/20 07:35 Chloride 104 mmol/L (98-107) 01/01/20 07:35 Carbon Dioxide 28 mmol/L (21-32) 01/01/20 07:35 Anion Gap 7 MMOL/L (8-16) L 01/01/20 07:35 BUN 18.2 mg/dL (7-18) H 01/01/20 07:35 Creatinine 1.3 mg/dL (0.55-1.3) 01/01/20 07:35 Est GFR (CKD-EPI)AfAm 73.22 01/01/20 07:35 Est GFR (CKD-EPI)NonAf 63.18 01/01/20 07:35 Random Glucose 99 mg/dL (74-106) 01/01/20 07:35 Calcium 9.2 mg/dL (8.5-10.1) 01/01/20 07:35 Total Bilirubin 0.4 mg/dL (0.2-1) 01/01/20 07:35 AST 22 U/L (15-37) 01/01/20 07:35 ALT 20 U/L (13-61) 01/01/20 07:35 Alkaline Phosphatase 77 U/L (45-117) 01/01/20 07:35 Ammonia 133.90 umol/L (11-32) H 01/03/20 10:10 Total Protein 7.6 g/dl (6.4-8.2) 01/01/20 07:35 Albumin 3.6 g/dl (3.4-5.0) 01/01/20 07:35 Urine Color Yellow 01/03/20 09:30 Urine Appearance Clear 01/03/20 09:30 Urine pH 5.5 (5.0-8.0) 01/03/20 09:30 Ur Specific M[place] 1.020 (1.010-1.035) 01/03/20 09:30 Urine Protein Negative (NEGATIVE) 01/03/20 09:30 Urine Glucose (UA) Negative (NEGATIVE) 01/03/20 09:30 Urine Ketones Negative (NEGATIVE) 01/03/20 09:30 Urine Blood Negative (NEGATIVE) 01/03/20 09:30 Urine Nitrite Negative (NEGATIVE) 01/03/20 09:30 Urine Bilirubin Negative (NEGATIVE) 01/03/20 09:30 Urine Urobilinogen 0.2 mg/dL (0.2-1.0) 01/03/20 09:30 Ur Leukocyte Esterase Negative (NEGATIVE) 01/03/20 09:30 Syphilis Serology Non-reactive (NONREACTIVE) 01/01/20 07:35 COVID-19 (TRISH) Not detected (Not Detected) 12/31/19 14:30 HIV Ag/Ab Combo Qual Negative (NEGATIVE) 01/01/20 07:35 Action: Lactoluse 20gm oral TID x 3 days order Initiate 1:1 constant observation Maintain fall and safety precaution Floor provider to be re-evaluate 1:1 order tomorrow Tylenol 650mg tablet oral discontinued
[2020-01-03] MEDS: THIAMINE HCL 100 MG TABLET (FP) PO SCH (22:55)
[2020-01-03] MEDS: MELATONIN 5 MG TABLETS PO SCH (22:55)
[2020-01-03] MEDS: LACTULOSE 20 GM/30 ML UDC (FOR ORAL USE ONLY) PO SCH (22:55)
[2020-01-03] MEDS: OLANZapine 10 MG TABLET PO SCH (22:55)
[2020-01-04] MEDS ORDERED: P-EPHED 60MG/TRIPROLIDI 2.5MG TABLET PO PRN (00:34)
[2020-01-04] MEDS ORDERED: METHADONE HCL 10 MG TABLET ONE (04:40)
[2020-01-04] MEDS ORDERED: METHADONE HCL 40 MG DISPERSABLE TABLET ONE (04:41)
[2020-01-04] MEDS ORDERED: chlordiazePOXIDE HCL 10 MG CAPSULE PO SCH (05:00)
[2020-01-04] MEDS ORDERED: chlordiazePOXIDE 5 MG CAPSULE PO SCH (05:00)
[2020-01-04] MEDS: LACTULOSE 20 GM/30 ML UDC (FOR ORAL USE ONLY) PO SCH (06:27)
[2020-01-04] MEDS: METHADONE 40 MG, METHADONE 30 MG PO SCH (07:56)
[2020-01-04 09:14] VITALS: BP 136/83; PULSE 79; TEMP 97.7
--- NOTE | 2020-01-04 09:26 | DS ---
[facility] Detox Discharge Summary Admission Date: 12/31/19 Discharge Date: 01/04/20 - History Present History: Alcohol Dependence Additional Comments: 49 years old male admitted on 12/31/19 for alcohol withdrawal sx management treated with librium detox regiment seen by psychiatrist dayanna kaiser mr omrrell has completed the librim detox regiment and is tolerated well alert oriented x 3 speech clearly coherently ambulating with cane slow steady gaits cardiac s1s2 regular rate rhythm respiratory clear lung sounds bilaterally on auscultation skin warm and dry Pertinent Past History: time for discharge 35 minutes - Physical Exam Results Vital Signs: Vital Signs Temperature 97.7 F 01/04/20 08:28 Pulse Rate 79 01/04/20 08:28 Respiratory Rate 18 01/04/20 08:28 Blood Pressure 136/83 01/04/20 08:28 O2 Sat by Pulse Oximetry (%) 98 01/04/20 06:07 Pertinent Admission Physical Exam Findings: alcohol withdrawal Vital Signs - 24 hr 01/04/20 01/04/20 06:07 08:28 Temperature 97.3 F L 97.7 F Pulse Rate 72 79 Respiratory 16 18 Rate Blood Pressure 124/70 136/83 O2 Sat by Pulse 98 Oximetry (%) Laboratory Tests 12/31/19 01/01/20 01/01/20 14:30 07:35 07:35 WBC RBC Hgb Hct MCV MCH MCHC RDW Plt Count MPV Sodium Potassium Chloride Carbon Dioxide Anion Gap BUN Creatinine Est GFR (CKD-EPI)AfAm Est GFR (CKD-EPI)NonAf Random Glucose Calcium Total Bilirubin AST ALT Alkaline Phosphatase Ammonia Total Protein Albumin Urine Color Urine Appearance Urine pH Ur Specific [place] Urine Protein Urine Glucose (UA) Urine Ketones Urine Blood Urine Nitrite Urine Bilirubin Urine Urobilinogen Ur Leukocyte Esterase Syphilis Serology Non-reactive COVID-19 (TRISH) Not detected HIV Ag/Ab Combo Qual Negative 01/01/20 01/01/20 01/03/20 07:35 07:35 09:30 WBC 4.3 RBC 3.73 L Hgb 11.0 L Hct 34.1 L MCV 91.4 MCH 29.6 MCHC 32.3 RDW 15.3 Plt Count 240 MPV 9.5 Sodium 140 Potassium 4.6 Chloride 104 Carbon Dioxide 28 Anion Gap 7 L BUN 18.2 H Creatinine 1.3 Est GFR (CKD-EPI)AfAm 73.22 Est GFR (CKD-EPI)NonAf 63.18 Random Glucose 99 Calcium 9.2 Total Bilirubin 0.4 AST 22 ALT 20 Alkaline Phosphatase 77 Ammonia Total Protein 7.6 Albumin 3.6 Urine Color Yellow Urine Appearance Clear Urine pH 5.5 Ur Specific [place] 1.020 Urine Protein Negative Urine Glucose (UA) Negative Urine Ketones Negative Urine Blood Negative Urine Nitrite Negative Urine Bilirubin Negative Urine Urobilinogen 0.2 Ur Leukocyte Esterase Negative Syphilis Serology COVID-19 (TRISH) HIV Ag/Ab Combo Qual 01/03/20 10:10 WBC RBC Hgb Hct MCV MCH MCHC RDW Plt Count MPV Sodium Potassium Chloride Carbon Dioxide Anion Gap BUN Creatinine Est GFR (CKD-EPI)AfAm Est GFR (CKD-EPI)NonAf Random Glucose Calcium Total Bilirubin AST ALT Alkaline Phosphatase Ammonia 133.90 H Total Protein Albumin Urine Color Urine Appearance Urine pH Ur Specific [place] Urine Protein Urine Glucose (UA) Urine Ketones Urine Blood Urine Nitrite Urine Bilirubin Urine Urobilinogen Ur Leukocyte Esterase Syphilis Serology COVID-19 (TRISH) HIV Ag/Ab Combo Qual ammonia elevaton treating with lactulose repeat ammonia level - Treatment Hospital Course: Detox Protocol Followed, Detoxed Safely, Responded well, Discharged Condition Good, Rehab Referral Accepted Patient has Accepted [facility] Referral [facility] - Medication Discharge Medications: Ambulatory Orders Emtricitabine/Tenofovir [Truvada -] 1 tab PO DAILY 11/05/18 Methadone [Dolophine -] 70 mg PO DAILY 11/05/18 Olanzapine [Zyprexa] 20 mg PO DAILY 11/26/19 Albuterol Sulfate Inhaler - [Ventolin HFA Inhaler -] 1 - 2 inh PO Q4H PRN 11/29/19 Citalopram Hydrobromide [Celexa -] 20 mg PO DAILY 11/29/19 Naloxone HCl [Narcan] 4 mg NS PRN PRN #2 spray 12/07/19 - Diagnosis (1) Asthma Current Visit: Yes Status: Chronic Qualifiers: Asthma severity: mild Asthma persistence: intermittent Asthma complication type: with status asthmaticus Qualified Code(s): J45.22 - Mild intermittent asthma with status asthmaticus (2) Alcohol dependence with uncomplicated withdrawal Current Visit: Yes Status: Acute (3) Methadone maintenance therapy patient Current Visit: Yes Status: Chronic (4) History of hepatitis C Current Visit: Yes Status: Chronic (5) Weight loss Current Visit: Yes Status: Chronic (6) Nicotine dependence Current Visit: Yes Status: Acute Qualifiers: Nicotine product type: cigarettes Substance use status: in withdrawal Qualified Code(s): F17.213 - Nicotine dependence, cigarettes, with withdrawal - AMA Did Patient Leave Against Medical Advice: No CIWA Score - CIWA Score Nausea/Vomitin-No Nausea/No Vomiting Muscle Tremors: 1-None Visible, but [place] Anxiety: 1-Mildly Anxious Agitation: 0-Normal Activity Paroxysmal Sweats: No Perspiration Orientation: 0-Oriented Tacttile Disturbances: 0-None Auditory Disturbances: 0-None Visual Disturbances: 0-None Headache: 0-None Present CIWA-Ar Total Score: 2
[2020-01-04] MEDS: NICOTINE POLACRILEX 2 MG GUM BUC PRN ×2 (09:38→12:22)
[2020-01-04] MEDS: PRENATAL VITAMINS W/ FOLIC ACID TABLET (FP) PO SCH (10:12)
[2020-01-04] MEDS: ALBUTEROL SO4 HFA INHALER IH PRN (10:12)
[2020-01-04] MEDS: CITALOPRAM HYDROBROMIDE 20 MG TABLET PO SCH (10:12)
[2020-01-04] MEDS: BACITRACIN 0.9 GM PACKET TP SCH (10:13)
[2020-01-04] MEDS ORDERED: LORazepam 0.5 MG TABLET PO ONE (17:00)
[2020-01-05] MEDS ORDERED: chlordiazePOXIDE HCL 10 MG CAPSULE PO ONE (05:00)
[2020-01-05] MEDS ORDERED: chlordiazePOXIDE 5 MG CAPSULE PO ONE (05:00)
[2020-01-05] MEDS ORDERED: LORazepam 0.5 MG TABLET PO ONE (05:00)
== END 2020-01-04 12:54 | disposition other institution (70) | DRG 773 ==
LOC: YASAS 10:35 → Y3N 14:20
PROVIDERS: ADMIT Allergy & Immunology; ATTEND Allergy & Immunology
PROC: HZ2ZZZZ Detoxification Services for Substance Abuse Treatment (ICD-10-PCS; principal; 2019-12-31)
DX: F10.230 Alcohol dependence with withdrawal, uncomplicated (principal); F11.20 Opioid dependence, uncomplicated; F14.20 Cocaine dependence, uncomplicated; F17.213 Nicotine dependence, cigarettes, with withdrawal; F25.0 Schizoaffective disorder, bipolar type; G40.909 Epilepsy, unspecified, not intractable, without status epilepticus; M54.5 Low back pain; G89.29 Other chronic pain; R63.4 Abnormal weight loss; Z68.22 Body mass index [BMI] 22.0-22.9, adult; R26.89 Other abnormalities of gait and mobility; R29.6 Repeated falls; Z62.810 Personal history of physical and sexual abuse in childhood; S00.212A Abrasion of left eyelid and periocular area, initial encounter; W18.39XA Other fall on same level, initial encounter; Z91.81 History of falling; Y93.E8 Activity, other personal hygiene; Y92.231 Patient bathroom in hospital as the place of occurrence of the external cause; Y99.8 Other external cause status; Z91.5 Personal history of self-harm; Z88.0 Allergy status to penicillin; Z59.0 Homelessness; Z99.89 Dependence on other enabling machines and devices
CPT/HCPCS: 36415; 80053; 81003; 82140; 85027; 86780; 86803; 87389; Q0162; U0003

== ENCOUNTER 2020-01-01 08:37 | Emergency (ER) | payer OTHER ==
[2020-01-01 08:45] VITALS: TEMP 97.4; BMI 25.1
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
--- NOTE | 2020-01-01 10:31 | PDOC ---
Documentation entered by Yane Tubbs SCRIBE, acting as scribe for Ramonita Dumas MD. Ramonita Dumas MD: This documentation has been prepared by the scribe, Yane Tubbs SCRIBE, under my direction and personally reviewed by me in its entirety. I confirm that the documentation accurately reflects all work, treatment, procedures, and medical decision making performed by me. Attending Attestation - Resident Resident Name: Abdi Paez - ED Attending Attestation I have performed the following: I have examined & evaluated the patient, The case was reviewed & discussed with the resident, I agree w/resident's findings & plan, Exceptions are as noted - HPI HPI: 01/01/20 09:05 Patient is a 49 year old male with a significant past medical history of Schizophrenia, Bipolar disorder, depression, previous suicide attempts, asthma, Seizures, Opioid dependence, Hep C, polysubstance abuse (including alcohol- 2 pints of rum daily; heroin- injects 10 bags daily; and cocaine),B/l inguinal hernia repairs, Left wrist surgery, who presents to the ED from [facility] with a fall and head injury. The patient took methadone and chlordiazepoxide and after fell and hit his head while he was standing, attempting to brush his teeth. Fall protocol was activated Allergies: Penicillin G - Physicial Exam PE: GENERAL: Somnolent, but awakens to voice, in no acute distress HEAD: No signs of trauma EYES: PERRLA, EOMI, sclera anicteric, conjunctiva clear ENT: Auricles normal inspection, hearing grossly normal, nares patent, oropharynx clear without exudates. Moist mucosa NECK: Normal ROM, supple, no lymphadenopathy, JVD, or masses LUNGS: Breath sounds equal, clear to auscultation bilaterally. No wheezes, and no crackles HEART: Regular rate and rhythm, normal S1 and S2, no murmurs, rubs or gallops ABDOMEN: Soft, nontender, normoactive bowel sounds. No guarding, no rebound. No masses EXTREMITIES: Normal range of motion, no edema. No clubbing or cyanosis. No cord s, erythema, or tenderness NEUROLOGICAL: Limited neuro exam, patient somnolent SKIN: Warm, dry, normal turgor, no rashes or lesions noted. - Medical Decision Making CTH negative for ICH. Pt's mental status is improved from initial ED assessment. Will transfer back to [facility]. Discharge - Discharge Information Problems reviewed: Yes Clinical Impression/Diagnosis: Fall Qualifiers: Encounter type: initial encounter Qualified Code(s): W19.XXXA - Unspecified fall, initial encounter Condition: Improved Disposition: HOME - Follow up/Referral Referrals: [facility] [place] [Provider Group] - Patient Discharge Instructions Patient Printed Discharge Instructions: How to Prevent Falls Additional Instructions: Go straight back to [facility] care. You must return to the Emergency Department with any new complaints, if your symptoms persist and do not improve or if you develop any other new or worsening concerns. As discussed, please call to follow up with your Primary Care physician in 1-2 days to discuss what happened to you in the emergency room, and make sure you are being looked after and taken care of. Your emergency room visit is not complete without this follow up appointment. Thank you for coming to the [facility]. We hope you feel better soon! Print Language: CROATIAN - Post Discharge Activity
--- NOTE | 2020-01-01 11:32 | CONSULT ---
[facility] Psychiatric Consult - Data Date of interview: 01/01/20 Admission source: [facility] Identifying data: Patient transferred to [facility] due to falling on the unit. Web Feeder unable to complete psychiatric consultation. Please reorder psychiatric consultation if requested by patient.
[2020-01-01 12:23] VITALS: BP 104/68; PULSE 70
--- NOTE | 2020-01-01 14:02 | EKG ---
Test Reason : Blood Pressure : / mmHG Vent. Rate : 075 BPM Atrial Rate : 075 BPM P-R Int : 186 ms QRS Dur : 090 ms QT Int : 408 ms P-R-T Axes : 100 013 042 degrees QTc Int : 455 ms NORMAL SINUS RHYTHM NORMAL ECG WHEN COMPARED WITH ECG OF 14-AUG-2017 14:47, VENT. RATE HAS DECREASED BY 49 BPM Confirmed by HEATHER GARCÍA MD ([id number]) on 01/01/2020 2:02:16 PM Referred By: Confirmed By:HEATHER GARCÍA MD
== END 2020-01-01 12:23 | disposition short-term general hospital (02) ==
LOC: JER 08:37
DX: S09.90XA Unspecified injury of head, initial encounter (principal); W19.XXXA Unspecified fall, initial encounter
CPT/HCPCS: 70450-TC; 72125-TC; 93005; 93010; 99284-25

== ENCOUNTER 2020-01-04 13:12 | Inpatient (IN) | payer OTHER ==
--- NOTE | 2020-01-04 12:47 | HP ---
[facility] Rehab Assess/Revision - Admission History Ad[facility] - Findings Detox History & Physical reviewed: Yes Concur with findings: Yes Comments/Additional Findings: transferred from detox to rehab admission as per protocol Inpatient Rehab Admission - Rehab Decision to Admit Inpatient rehab admission?: Yes - Initial Determination Are CD services needed?: Yes Free of communicable disease: Yes Not in need of hospitalization: Yes - Rehab Admission Criteria Previous failed treatment: Yes Poor recovery environment: Yes Comorbidities: Yes Lacks judgement: Yes Patient is meeting Inpatient Rehab admission criteria:: Yes
[~2020-01-04 13:12] MED LIST: ACETAMINOPHEN 325 MG TABLET (FP) PO PRN; IBUPROFEN 400 MG TABLET (FP) PO PRN; LOPERAMIDE HCL 2 MG CAPSULE PO PRN; MAG HYDROX/AL HYDROX/SIMETH 30 ML UNIT-DOSE CUP PO PRN; MAGNESIUM CITRATE 300 ML BOTTLE PO PRN; MAGNESIUM HYDROX 2400MG/30ML ORAL SUSPENSION 30 ML CUP PO PRN; P-EPHED 60MG/TRIPROLIDI 2.5MG TABLET PO PRN; guaiFENesin 200 MG/10 ML 10 ML UNIT-DOSE CUPS PO PRN; hydrOXYzine PAMOATE 25 MG CAPSULE (FP) PO PRN
[2020-01-04] MEDS: LACTULOSE 20 GM/30 ML UDC (FOR ORAL USE ONLY) PO SCH ×2 (15:34→21:29)
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
[2020-01-04] MEDS: ALBUTEROL SO4 HFA INHALER IH PRN (18:27)
[2020-01-04] MEDS: MELATONIN 5 MG TABLETS PO SCH (21:29)
[2020-01-04] MEDS: THIAMINE HCL 100 MG TABLET (FP) PO SCH (21:29)
[2020-01-04] MEDS: OLANZapine 10 MG TABLET PO SCH (21:29)
[2020-01-04] MEDS: BACITRACIN 0.9 GM PACKET TP SCH (21:30)
[2020-01-04] MEDS ORDERED: OLANZapine 10 MG TABLET PO SCH (22:00)
[2020-01-05] MEDS: LACTULOSE 20 GM/30 ML UDC (FOR ORAL USE ONLY) PO SCH ×3 (06:14→21:11)
[2020-01-05] MEDS ORDERED: METHADONE HCL 10 MG TABLET PO ONE (09:00)
[2020-01-05] MEDS ORDERED: METHADONE 40 MG, METHADONE 30 MG PO ONE (09:00)
[2020-01-05] MEDS ORDERED: PT OWN MED DRAWER 7, Y5N ONE (09:26)
[2020-01-05] MEDS: PRENATAL VITAMINS W/ FOLIC ACID TABLET (FP) PO SCH (09:53)
[2020-01-05] MEDS: CITALOPRAM HYDROBROMIDE 20 MG TABLET PO SCH (09:53)
[2020-01-05] MEDS ORDERED: METHADONE HCL 40 MG DISPERSABLE TABLET ONE (09:54)
[2020-01-05] MEDS ORDERED: METHADONE HCL 10 MG TABLET ONE (09:54)
[2020-01-05] MEDS: ALBUTEROL SO4 HFA INHALER IH PRN ×2 (09:55→19:24)
[2020-01-05] MEDS: BACITRACIN 0.9 GM PACKET TP SCH ×2 (09:57→21:10)
[2020-01-05] MEDS ORDERED: METHADONE HCL 40 MG DISPERSABLE TABLET PO SCH (10:00)
[2020-01-05] MEDS ORDERED: METHADONE 40 MG, METHADONE 30 MG PO SCH (10:00)
[2020-01-05] MEDS: NICOTINE POLACRILEX 2 MG GUM BUC PRN ×2 (16:40→18:42)
[2020-01-05] MEDS: THIAMINE HCL 100 MG TABLET (FP) PO SCH (21:10)
[2020-01-05] MEDS: MELATONIN 5 MG TABLETS PO SCH (21:10)
[2020-01-05] MEDS: OLANZapine 10 MG TABLET PO SCH (21:11)
[2020-01-06] MEDS ORDERED: METHADONE HCL 40 MG DISPERSABLE TABLET ONE (05:36)
[2020-01-06] MEDS ORDERED: METHADONE HCL 10 MG TABLET ONE (05:36)
[2020-01-06] MEDS: LACTULOSE 20 GM/30 ML UDC (FOR ORAL USE ONLY) PO SCH ×3 (06:07→21:24)
[2020-01-06] MEDS: METHADONE 40 MG, METHADONE 30 MG PO SCH (06:07)
[2020-01-06] MEDS: NICOTINE POLACRILEX 2 MG GUM BUC PRN ×3 (06:38→17:23)
[2020-01-06] MEDS ORDERED: ALBUTEROL SO4 0.083% IH SOL 2.5 MG/3 ML VIAL.NEB. NEB PRN (09:31)
[2020-01-06] MEDS: PRENATAL VITAMINS W/ FOLIC ACID TABLET (FP) PO SCH (09:33)
[2020-01-06] MEDS: CITALOPRAM HYDROBROMIDE 20 MG TABLET PO SCH (09:33)
[2020-01-06] MEDS: BACITRACIN 0.9 GM PACKET TP SCH ×2 (09:34→21:24)
--- NOTE | 2020-01-06 09:35 | PN ---
S Progress Note Note: PATIENT EVALUATED FOR C/O SOB. ROS: DENIES CHEST PAIN, COUGH AND DIZZINESS. PMH: ASTHMA, HEP C, ALCOHOL DEPENDENCE Vital Signs Temperature 98.2 F 01/06/20 08:54 Pulse Rate 98 H 01/06/20 08:54 Respiratory Rate 17 01/06/20 08:54 Blood Pressure 144/81 01/06/20 08:54 O2 Sat by Pulse Oximetry (%) 98 01/06/20 07:09 Laboratory Tests 01/05/20 09:50 Ammonia 64.00 H PE ALERT AND ORIENTED X 3 GENERAL SITTING IN CHAIR IN DAYROOM, +SOB, PLACED HEAD DOWN ON TABLE SKIN WARM AND DRY CAR S1S2, RRR RESP + FAINT SCATTERED WHEEZES, NO RHONCHI OR CRACKLES EXT AMB WITH CANE, UNSTEADY, NO TREMORS A/P: HX OF ASTHMA SOB R/T ASTHMA EXACERBATION ELEVATED AMMONIA LEVEL ALBUTEROL INH GIVEN PER PRN ORDER-SOB RESOLVED AFTER ALBUTEROL GIVEN WILL ADD ALB NEBULIZERS Q6H NEEDED REPEAT AMMONIA LEVEL 01/08 MONITOR CLINICALLY
[2020-01-06] MEDS: LIDOCAINE 5% TOPICAL PATCH TP SCH (11:00)
[2020-01-06] MEDS: THIAMINE HCL 100 MG TABLET (FP) PO SCH (21:23)
[2020-01-06] MEDS: MELATONIN 5 MG TABLETS PO SCH (21:23)
[2020-01-06] MEDS: LIDOCAINE PATCH REMOVAL MC SCH (21:24)
[2020-01-06] MEDS: OLANZapine 10 MG TABLET PO SCH (21:24)
[2020-01-07] MEDS ORDERED: METHADONE HCL 10 MG TABLET ONE (03:44)
[2020-01-07] MEDS ORDERED: METHADONE HCL 40 MG DISPERSABLE TABLET ONE (03:44)
[2020-01-07] MEDS: LACTULOSE 20 GM/30 ML UDC (FOR ORAL USE ONLY) PO SCH ×3 (06:06→21:05)
[2020-01-07] MEDS: METHADONE 40 MG, METHADONE 30 MG PO SCH (06:06)
[2020-01-07] MEDS: NICOTINE POLACRILEX 2 MG GUM BUC PRN ×4 (07:53→19:03)
[2020-01-07] MEDS: CITALOPRAM HYDROBROMIDE 20 MG TABLET PO SCH (09:45)
[2020-01-07] MEDS: BACITRACIN 0.9 GM PACKET TP SCH ×2 (09:45→21:06)
[2020-01-07] MEDS: LIDOCAINE 5% TOPICAL PATCH TP SCH (09:46)
[2020-01-07] MEDS: PRENATAL VITAMINS W/ FOLIC ACID TABLET (FP) PO SCH (09:47)
[2020-01-07] MEDS: THIAMINE HCL 100 MG TABLET (FP) PO SCH (21:05)
[2020-01-07] MEDS: MELATONIN 5 MG TABLETS PO SCH (21:05)
[2020-01-07] MEDS: LIDOCAINE PATCH REMOVAL MC SCH (21:06)
[2020-01-07] MEDS: OLANZapine 10 MG TABLET PO SCH (21:06)
[2020-01-08] MEDS ORDERED: METHADONE HCL 40 MG DISPERSABLE TABLET ONE (03:35)
[2020-01-08] MEDS ORDERED: METHADONE HCL 10 MG TABLET ONE (03:35)
[2020-01-08] MEDS: LACTULOSE 20 GM/30 ML UDC (FOR ORAL USE ONLY) PO SCH ×3 (06:04→21:33)
[2020-01-08] MEDS: METHADONE 40 MG, METHADONE 30 MG PO SCH (06:04)
[2020-01-08] MEDS: NICOTINE POLACRILEX 2 MG GUM BUC PRN ×3 (07:53→17:41)
[2020-01-08] MEDS: CITALOPRAM HYDROBROMIDE 20 MG TABLET PO SCH (10:02)
[2020-01-08] MEDS: PRENATAL VITAMINS W/ FOLIC ACID TABLET (FP) PO SCH (10:02)
[2020-01-08] MEDS: LIDOCAINE 5% TOPICAL PATCH TP SCH (10:02)
[2020-01-08] MEDS: BACITRACIN 0.9 GM PACKET TP SCH ×2 (10:04→21:33)
[2020-01-08] MEDS ORDERED: PT OWN MED DRAWER 7, Y5N ONE (11:41)
[2020-01-08] MEDS: THIAMINE HCL 100 MG TABLET (FP) PO SCH (21:33)
[2020-01-08] MEDS: OLANZapine 10 MG TABLET PO SCH (21:33)
[2020-01-08] MEDS: LIDOCAINE PATCH REMOVAL MC SCH (21:33)
[2020-01-08] MEDS: MELATONIN 5 MG TABLETS PO SCH (21:33)
[2020-01-09] MEDS ORDERED: METHADONE HCL 40 MG DISPERSABLE TABLET ONE (05:33)
[2020-01-09] MEDS ORDERED: METHADONE HCL 10 MG TABLET ONE (05:33)
[2020-01-09] MEDS: LACTULOSE 20 GM/30 ML UDC (FOR ORAL USE ONLY) PO SCH ×3 (06:33→21:07)
[2020-01-09] MEDS: METHADONE 40 MG, METHADONE 30 MG PO SCH (06:33)
[2020-01-09] MEDS: ALBUTEROL SO4 HFA INHALER IH PRN (09:25)
[2020-01-09] MEDS: BACITRACIN 0.9 GM PACKET TP SCH ×2 (09:50→21:07)
[2020-01-09] MEDS: CITALOPRAM HYDROBROMIDE 20 MG TABLET PO SCH (09:50)
[2020-01-09] MEDS: LIDOCAINE 5% TOPICAL PATCH TP SCH (09:50)
[2020-01-09] MEDS: PRENATAL VITAMINS W/ FOLIC ACID TABLET (FP) PO SCH (09:50)
[2020-01-09] MEDS: NICOTINE POLACRILEX 2 MG GUM BUC PRN ×2 (13:02→16:44)
[2020-01-09] MEDS: MELATONIN 5 MG TABLETS PO SCH (21:06)
[2020-01-09] MEDS: THIAMINE HCL 100 MG TABLET (FP) PO SCH (21:07)
[2020-01-09] MEDS: OLANZapine 10 MG TABLET PO SCH (21:07)
[2020-01-09] MEDS: LIDOCAINE PATCH REMOVAL MC SCH (22:22)
[2020-01-10] MEDS ORDERED: METHADONE HCL 10 MG TABLET ONE (05:37)
[2020-01-10] MEDS ORDERED: METHADONE HCL 40 MG DISPERSABLE TABLET ONE (05:37)
[2020-01-10] MEDS: LACTULOSE 20 GM/30 ML UDC (FOR ORAL USE ONLY) PO SCH ×3 (06:20→21:52)
[2020-01-10] MEDS: METHADONE 40 MG, METHADONE 30 MG PO SCH (06:21)
[2020-01-10] MEDS: CITALOPRAM HYDROBROMIDE 20 MG TABLET PO SCH (09:17)
[2020-01-10] MEDS: BACITRACIN 0.9 GM PACKET TP SCH ×2 (09:17→21:52)
[2020-01-10] MEDS: PRENATAL VITAMINS W/ FOLIC ACID TABLET (FP) PO SCH (09:17)
[2020-01-10] MEDS: LIDOCAINE 5% TOPICAL PATCH TP SCH (09:18)
[2020-01-10] MEDS: NICOTINE POLACRILEX 2 MG GUM BUC PRN ×4 (09:23→17:54)
--- NOTE | 2020-01-10 11:58 | PN ---
[facility] Progress Note Note: Ammonia level elevated. Continue Lactulose. Laboratory Last Values POC Glucometer 114 UNITS (80-120) 01/08/20 11:47 Ammonia 81.10 umol/L (11-32) H 01/09/20 08:00
[2020-01-10] MEDS: LIDOCAINE PATCH REMOVAL MC SCH (21:52)
[2020-01-10] MEDS: MELATONIN 5 MG TABLETS PO SCH (21:52)
[2020-01-10] MEDS: THIAMINE HCL 100 MG TABLET (FP) PO SCH (21:52)
[2020-01-10] MEDS: OLANZapine 10 MG TABLET PO SCH (21:52)
[2020-01-11] MEDS ORDERED: METHADONE HCL 10 MG TABLET ONE (05:37)
[2020-01-11] MEDS ORDERED: METHADONE HCL 40 MG DISPERSABLE TABLET ONE (05:38)
[2020-01-11] MEDS: LACTULOSE 20 GM/30 ML UDC (FOR ORAL USE ONLY) PO SCH ×3 (05:54→21:02)
[2020-01-11] MEDS: METHADONE 40 MG, METHADONE 30 MG PO SCH (05:54)
[2020-01-11] MEDS: NICOTINE POLACRILEX 2 MG GUM BUC PRN ×2 (07:04→10:00)
[2020-01-11] MEDS: PRENATAL VITAMINS W/ FOLIC ACID TABLET (FP) PO SCH (09:59)
[2020-01-11] MEDS: LIDOCAINE 5% TOPICAL PATCH TP SCH (10:00)
[2020-01-11] MEDS: CITALOPRAM HYDROBROMIDE 20 MG TABLET PO SCH (10:00)
[2020-01-11] MEDS: BACITRACIN 0.9 GM PACKET TP SCH ×2 (10:00→21:02)
--- NOTE | 2020-01-11 11:32 | PN ---
[facility] Progress Note Note: Ammonia level remains elevated. Continue lactulose. Laboratory Last Values POC Glucometer 114 UNITS (80-120) 01/08/20 11:47 Ammonia 81.10 umol/L (11-32) H 01/09/20 08:00
--- NOTE | 2020-01-11 13:59 | PN ---
[facility] Progress Note (SOAP) Subjective: Called to see patient who fell and hit his head, witnessed by another patient but not witnessed by staff. He was sent to the ED on 11/30 and 12/31 for the same complaints. The CT scans taken in both visits were negative for bleeding or any other adverse consequence. The patient states that he falls all the time, and that he has had several falls while in the community. Labs indicate an ammonia level of 81, he has been treated with lactulose. Objective: General: stuporous, but aroused with a sternal rub. HEENTM: normocephalic, No lumps, bumps, lacerations, eccymotic areas on scalp, Pupils > 1mm, sluggish response to light, difficulty focusing on provider Lungs: clear Heart: s1 s2 ABD: soft, non-distended, +BS PV: + pulses SKIN: damp, sweaty Neuro: oriented to place, person, situation. Hand abrasive mixer equal ~4, able to follow commands, move all extremities 01/11/20 13:50 01/11/20 14:00 Assessment: Altered mentation, s/p fall not witnessed by staff member 01/11/20 13:59 01/11/20 14:02 Plan: Patient will be transported to [facility] for further evaluation. Report given to Dr. Ramsey.
[2020-01-11] MEDS ORDERED: ALBUTEROL SO4 HFA INHALER IH PRN (14:20)
[2020-01-11] MEDS: OLANZapine 10 MG TABLET PO SCH (21:02)
[2020-01-11] MEDS: THIAMINE HCL 100 MG TABLET (FP) PO SCH (21:02)
[2020-01-11] MEDS: MELATONIN 5 MG TABLETS PO SCH (21:02)
[2020-01-11] MEDS: LIDOCAINE PATCH REMOVAL MC SCH (21:02)
--- NOTE | 2020-01-12 01:48 | PN ---
S Progress Note Note: HOSPITAL RETURN S/P HEAD TRAUMA. A/O X3 NAD NEG HEAD CT Vital Signs Temperature 98.2 F 01/11/20 20:55 Pulse Rate 90 01/11/20 20:55 Respiratory Rate 18 01/11/20 20:55 Blood Pressure 146/95 01/11/20 20:55 O2 Sat by Pulse Oximetry (%) 95 01/11/20 20:40 ED Treatment Course - LABORATORY CBC & Chemistry Diagram: 01/11/20 16:30 01/11/20 16:30 Medical Decision Making - Medical Decision Making 01/11/20 16:01 49yo M pmh IC heroin, HIV, schizophrenia, presenting from [facility] presenting with syncope this afternoon when getting out of bed this morning. Exam notable for antalgic gait, normal neuro exam and mental status, mild tachycardia, otherwise stable vitals. Cocnerning for orthostatic hypotension vs r/o ICH vs arrhythmia - CBC, CMP, Cardiac profile, Coags - NCHCT, CXR, EKG - UTox (requested by [facility]) - 1L IVF 01/11/20 17:26 - CT without ICH or acute interval change 01/11/20 17:30 - Labs unremarkable, interval improvement of elevated ammonia - Patient stable, ambulatory, not orthostatic - Sign-out given to [facility] for transfer back Dispo: Return to [facility] 01/11/20 17:51 - Negative orthostatics, BP essentially unchanged with position variation Discharge - Discharge Information Problems reviewed: Yes Clinical Impression/Diagnosis: Fall Qualifiers: Encounter type: initial encounter Qualified Code(s): W19.XXXA - Unspecified fall, initial encounter Syncope Qualifiers: Syncope type: unspecified Qualified Code(s): R55 - Syncope and collapse Condition: Stable Disposition: RESIDENTIAL FACILITY - Admission No - Follow up/Referral - Patient Discharge Instructions Patient Printed Discharge Instructions: How to Prevent Falls Additional Instructions: You were seen and evaluated following a fall. Please continue your medications and care per providers at [facility]. Return to the ED for any new or concerning symptoms. - Post Discharge Activity
[2020-01-12] MEDS ORDERED: METHADONE HCL 10 MG TABLET ONE (03:45)
[2020-01-12] MEDS ORDERED: METHADONE HCL 40 MG DISPERSABLE TABLET ONE (03:45)
[2020-01-12] MEDS: LACTULOSE 20 GM/30 ML UDC (FOR ORAL USE ONLY) PO SCH ×3 (06:36→21:50)
[2020-01-12] MEDS: METHADONE 40 MG, METHADONE 30 MG PO SCH (06:36)
[2020-01-12] MEDS: BACITRACIN 0.9 GM PACKET TP SCH ×2 (09:05→21:50)
[2020-01-12] MEDS: LIDOCAINE 5% TOPICAL PATCH TP SCH (09:05)
[2020-01-12] MEDS: PRENATAL VITAMINS W/ FOLIC ACID TABLET (FP) PO SCH (09:05)
[2020-01-12] MEDS: CITALOPRAM HYDROBROMIDE 20 MG TABLET PO SCH (09:05)
[2020-01-12] MEDS: NICOTINE POLACRILEX 2 MG GUM BUC PRN ×3 (09:06→17:38)
[2020-01-12] MEDS: MELATONIN 5 MG TABLETS PO SCH (21:50)
[2020-01-12] MEDS: OLANZapine 10 MG TABLET PO SCH (21:50)
[2020-01-12] MEDS: THIAMINE HCL 100 MG TABLET (FP) PO SCH (21:50)
[2020-01-12] MEDS: LIDOCAINE PATCH REMOVAL MC SCH (21:51)
[2020-01-13] MEDS ORDERED: METHADONE HCL 40 MG DISPERSABLE TABLET ONE (05:41)
[2020-01-13] MEDS ORDERED: METHADONE HCL 10 MG TABLET ONE (05:41)
[2020-01-13] MEDS: LACTULOSE 20 GM/30 ML UDC (FOR ORAL USE ONLY) PO SCH ×2 (06:09→14:54)
[2020-01-13] MEDS: METHADONE 40 MG, METHADONE 30 MG PO SCH (06:09)
--- NOTE | 2020-01-13 09:56 | PN ---
S Progress Note Note: Vital Signs Temperature 98.2 F 01/13/20 08:31 Pulse Rate 115 H 01/13/20 08:31 Respiratory Rate 18 01/13/20 08:31 Blood Pressure 136/76 01/13/20 08:31 O2 Sat by Pulse Oximetry (%) 95 01/13/20 06:08 Patient is a 49 yo male with medical conditions and polysubstance use disorder c/o of bilateral swelling of the lower extremities, denies pain or changes in mobility. PA: GEN: AOx3, no acute distress Lungs:clear through out Skin: intact, +bilateral edema non-pitting +1 MSK: ambulatory weight bearing with cane, + knee swelling, no effusion, tenderness or edema, full ROM dx: OA Edema Varicose Veins Plan: Compression stockings PRN Low sodium Diet Patient to follow up with PCP upon discharge Continue to monitor
[2020-01-13] MEDS: LIDOCAINE 5% TOPICAL PATCH TP SCH (10:07)
[2020-01-13] MEDS: BACITRACIN 0.9 GM PACKET TP SCH (10:07)
[2020-01-13] MEDS: NICOTINE POLACRILEX 2 MG GUM BUC PRN ×2 (10:08→14:55)
[2020-01-13] MEDS: PRENATAL VITAMINS W/ FOLIC ACID TABLET (FP) PO SCH (10:08)
[2020-01-13] MEDS: CITALOPRAM HYDROBROMIDE 20 MG TABLET PO SCH (10:08)
[2020-01-13 13:24] VITALS: BP 116/75; PULSE 110; TEMP 98
--- NOTE | 2020-01-13 15:25 | DS ---
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 during medication administration time. Pt admitted he received something(?Nicotine gum) from the other patient. Pt was involuntarily discharged as per multidisciplinary team decision/Unit regulation/policy of zero tolerance for diversion. Pt understood and acknowledged his behavior. Pertinent Past History: Asthma Hep C Hx of Seizure disorder Chronic Knee Pain/lower back pain - Discharge Physical Exam Vital Signs: Vital Signs Temperature 98.0 F 01/13/20 12:31 Pulse Rate 110 H 01/13/20 12:31 Respiratory Rate 18 01/13/20 12:31 Blood Pressure 116/75 01/13/20 12:31 O2 Sat by Pulse Oximetry (%) 95 01/13/20 14:15 neuro:Alert o x 3, coherent. Resp:nad muskuloskeletal:oob ambulating with steady gait Pertinent Admission Physical Exam Findings: Laboratory Tests 01/05/20 01/08/20 01/09/20 09:50 11:47 08:00 POC Glucometer 114 Ammonia 64.00 H 81.10 H Chronic Hyperammonemia Rx for lactulose sent to pt's home pharmacy and to follow up with his PCP at [place], [place] for medical management. - Treatment Discharge Condition: Discharge condition good Hospital Course: CD aftercare referral accepted to [facility] - Medication Discharge Medications: Ambulatory Orders Emtricitabine/Tenofovir [Truvada -] 1 tab PO DAILY 11/05/18 Methadone [Dolophine -] 70 mg PO DAILY 11/05/18 Olanzapine [Zyprexa] 20 mg PO DAILY 11/26/19 Citalopram Hydrobromide [Celexa -] 20 mg PO DAILY 11/29/19 Albuterol Sulfate Inhaler - [Ventolin HFA Inhaler -] 2 inh PO Q4H PRN #1 inhaler 01/13/20 Citalopram Hydrobromide [Celexa -] 20 mg PO DAILY #30 tablet 01/13/20 Lactulose (Oral Use) [Cephulac -] 20 gm PO TID #1 udc 01/13/20 Naloxone HCl [Narcan] 4 mg NS PRN PRN #2 spray 01/13/20 Olanzapine [Zyprexa] 10 mg PO HS #30 tablet 01/13/20 - Medication-Assisted Treatment (MAT) Medication-Assisted Treatment (MAT): No - Discharge Instructions Diet, activity, other medical instructions: Diet:Regular Activity:oob ad himanshu Other medical instructions:follow up with CD aftercare and PCP as recom mendations. 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
--- NOTE | 2020-01-13 16:24 | PN ---
[facility] Progress Note Note: Psychiatry Attending's note : Nurse called. Patient is getting discharged today. Scripts needed for : citalopram 20 mg po daily. olanzapine 10 mg po hs. Medications are confirmed. Scripts sent to [facility]. Laboratory Associate spoke to pharmacist at [phone]. Most recent refills for the drugs were on 12/09/19. 30 day supply of both medications are sent. Electronically to [facility].
== END 2020-01-13 14:20 | disposition home or self-care (01) | DRG 772 ==
LOC: YASAS 13:12 → Y3W 13:14
PROVIDERS: ADMIT Allergy & Immunology; ATTEND Allergy & Immunology
PROC: HZ42ZZZ Group Counseling for Substance Abuse Treatment, Cognitive-Behavioral (ICD-10-PCS; principal; 2020-01-04)
DX: F10.20 Alcohol dependence, uncomplicated (principal); F11.20 Opioid dependence, uncomplicated; F14.20 Cocaine dependence, uncomplicated; F20.9 Schizophrenia, unspecified; Z21 Asymptomatic human immunodeficiency virus [HIV] infection status; G40.909 Epilepsy, unspecified, not intractable, without status epilepticus; E72.20 Disorder of urea cycle metabolism, unspecified; J45.22 Mild intermittent asthma with status asthmaticus; M54.5 Low back pain; M25.569 Pain in unspecified knee; B18.2 Chronic viral hepatitis C; K00.0 Anodontia; R60.0 Localized edema; R55 Syncope and collapse; R41.82 Altered mental status, unspecified; R26.0 Ataxic gait; W06.XXXA Fall from bed, initial encounter; Y93.89 Activity, other specified; Y92.230 Patient room in hospital as the place of occurrence of the external cause; Y99.8 Other external cause status; Z88.0 Allergy status to penicillin
CPT/HCPCS: 82140; 82962

== ENCOUNTER 2020-01-11 14:27 | Emergency (ER) | payer OTHER ==
[2020-01-11 14:39] VITALS: TEMP 98.1; BMI 24.4
--- NOTE | 2020-01-11 14:40 | PDOC ---
Rapid Medical Evaluation Chief Complaint: Injury Time Seen by Provider: 01/11/20 14:36 Medical Evaluation: Allergies Allergy/AdvReac Type Severity Reaction Status Date / Time penicillin G Allergy Severe Hives Verified 01/01/20 08:45 01/11/20 14:38 CC: woken up form sleep by roomate and jumped up fast but felt dizzy and fell, hitting his head, + LOC Exam: appears groggy but approp for conversation, vss Plan: ammonia, bgm head ct, ekg Discharge Disposition - Diagnosis Syncope - Discharge Dispostion Condition at time of disposition: Stable - Referrals - Patient Instructions - Post Discharge Activity
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
[2020-01-11] MEDS ORDERED: SODIUM CHLORIDE 1,000 ML IV STA (15:30)
--- NOTE | 2020-01-11 15:43 | PDOC ---
Documentation entered by Chris Betancourt SCRIBE, acting as scribe for Darryl Orozco MD. Darryl Orozco MD: This documentation has been prepared by the Lorena more inChris SCRIBE, under my direction and personally reviewed by me in its entirety. I confirm that the documentation accurately reflects all work, treatment, procedures, and medical decision making performed by me. Attending Attestation - Resident Resident Name: Wilmer Ramsey - ED Attending Attestation I have performed the following: I have examined & evaluated the patient, The case was reviewed & discussed with the resident, I agree w/resident's findings & plan, Exceptions are as noted - HPI HPI: 01/11/20 15:43 The patient is a 49 year old male with a significant past medical history of schizophrenia, bipolar disorder, depression, previous suicide attempts, asthma, seizures, opioid dependence, Hep C, polysubstance abuse, BL inguinal hernia repairs, and left wrist surgery who presents to the ED, [facility] from [facility], for s/p syncopal episode. Pt reports feeling lightheaded when he woke up, causing him to fall on his buttock. Pt denies hitting head, no LOC. Allergies: penicillin G - Physicial Exam PE: 01/11/20 15:41 EXAMINATION CONSTITUTIONAL:awake,m alert, wel nourished; in no apparent distress HEAD: Normocephalic; atraumatic EYES: PERRL; EOM intact; no icerus ENMT: External appears normal; NECK: Supple; non-tender; no jvd; no cervical lymphadenopathy CARD: Normal S1, S2; no murmurs, rubs, or gallops RESP: Normal chest excursion with respiration; breath sounds clear and equal bilaterally; no wheezes, rhonchi, or rales ABD: Soft, non-distended; non-tender; no palpable organomegaly, no palpable hernias EXT: Normal ROM in all four extremities; non-tender to palpation; distal pulses intact; antalgic gait due to left knee pain SKIN: Warm, dry, no rash NEURO: cn ii-xii grosly intact/ motor:5/5x4, no pronaiton drift; no asterxixis. - Medical Decision Making 01/11/20 15:44 49-year-old male with history of schizophrenia, bipolar disorder, HIV on Tripp presents from [facility] for frequent falls and near syncopal episodes consistent with orthostatics. In the ER, patient is ANO x3, nontoxic-appearing, follows commands. Will obtain CT of head. Will obtain CBC/CMP/ammonia level. Will reassess. Discharge - Discharge Information Problems reviewed: Yes Clinical Impression/Diagnosis: Syncope Qualifiers: Syncope type: unspecified Qualified Code(s): R55 - Syncope and collapse Condition: Stable - Follow up/Referral - Patient Discharge Instructions - Post Discharge Activity
[2020-01-11 17:05] LABS: HEMATOCRIT 30.4 % (35.4-49); HEMOGLOBIN 9.9 GM/dL (11.7-16.9); LYMPH % 31.2 % (8-40); MCH 30.1 pg (25.7-33.7); MCHC 32.6 g/dl (32.0-35.9); MEAN CELL VOLUME 92.2 fl (80-96); MEAN PLT VOLUME 9.5 fl (7.5-11.1); MONO % 18.8 % (3.8-10.2); PLATELET COUNT 191 K/MM3 (134-434); RDW 16.5 % (11.9-15.9); WHITE BLOOD COUNT 4.7 K/mm3 (4.0-10.0)
[2020-01-11 17:10] LABS: INR 0.92 (0.83-1.09); PROTHROMBIN TIME (PATIENT) 10.9 SEC (9.7-13.0)
[2020-01-11 17:25] LABS: ALBUMIN 3.1 g/dl (3.4-5.0); ALK PHOS 68 U/L (45-117); ANION GAP 4 MMOL/L (8-16); BILIRUBIN,TOTAL 0.2 mg/dL (0.2-1); BLOOD UREA NITROGEN 19.7 mg/dL (7-18); CALCIUM 9.4 mg/dL (8.5-10.1); CHLORIDE 107 mmol/L (98-107); CO2 29 mmol/L (21-32); GLUCOSE,RANDOM 113 mg/dL (74-106); POTASSIUM 4.3 mmol/L (3.5-5.1); SGOT/AST 27 U/L (15-37); SGPT/ALT 37 U/L (13-61); SODIUM 140 mmol/L (136-145); TOT PROT 6.9 g/dl (6.4-8.2)
[2020-01-11 17:29] LABS: COCAINE, UR NEGATIVE ng/ml (CUTOFF=300); OPIATES, URI NEGATIVE ng/ml (CUTOFF=300); PHENCYCLIDINE,URINE NEGATIVE ng/ml (CUTOFF=25); URINE AMPHETAMINES NEGATIVE ng/ml (CUTOFF=500); URINE BARBITURATES NEGATIVE ng/ml (CUTOFF=200)
[2020-01-11 17:41] LABS: METHADONE, UR POSITIVE ng/ml (CUTOFF=300); URINE BENZODIAZEPINES POSITIVE ng/ml (CUTOFF=200)
[2020-01-11 17:57] VITALS: BP 130/85; PULSE 88
--- NOTE | 2020-01-12 11:54 | EKG ---
Test Reason : Blood Pressure : / mmHG Vent. Rate : 101 BPM Atrial Rate : 101 BPM P-R Int : 186 ms QRS Dur : 086 ms QT Int : 370 ms P-R-T Axes : 098 008 044 degrees QTc Int : 479 ms SINUS TACHYCARDIA OTHERWISE NORMAL ECG WHEN COMPARED WITH ECG OF 01-JAN-2020 08:48, NO SIGNIFICANT CHANGE WAS FOUND Confirmed by GRACE MYERS MD ([id number]) on 01/12/2020 11:53:36 AM Referred By: Confirmed By:GRACE MYERS MD
== END 2020-01-11 19:44 ==
LOC: JER 14:27
PROC: 3E0F7GC Introduction of Other Therapeutic Substance into Respiratory Tract, Via Natural or Artificial Opening (ICD-10-PCS; principal; 2020-01-11)
DX: R55 Syncope and collapse (principal); W19.XXXA Unspecified fall, initial encounter
CPT/HCPCS: 36415; 70450-TC; 80053; 80307; 82140; 82550; 84484; 85025; 85610; 85730; 93005; 93010; 99285-25

== ENCOUNTER 2020-04-06 11:21 | Inpatient (IN) | payer OTHER ==
--- OUTSIDE RECORDS SUMMARY | 2020-04-06 11:47 | XMS ---
:1970 [facility] Support Name Relationship Address Phone UE, UNEMPLOYED Unavailable Unavailable Unavailable UE Unavailable Unavailable Unavailable ISECUSHAUNNA GASTON [address] [facility] [address] [place] [address] IRRIZARRZORAN Telles BROTHER [address] [place] [address] IRRZORAN CROFT Brother [address] [place] [address] rocha, zoran Unavailable Unavailable Unavailable Re-disclosure Warning The records that you are about to access may contain information from federally- assisted alcohol or drug abuse programs. If such information is present, then the following federally mandated warning applies: This information has been disclosed to you from records protected by federal confidentiality rules (42 CFR part 2). The federal rules prohibit you from making any further disclosure of this information unless further disclosure is expressly permitted by the written consent of the person to whom it pertains or as otherwise permitted by 42 CFR part 2. A general authorization for the release of medical or other information is NOT sufficient for this purpose. The Federal rules restrict any use of the information to criminally investigate or prosecute any alcohol or drug abuse patient.The records that you are about to access may contain highly sensitive health information, the redisclosure of which is protected by Article 27-F of the [facility] Public Health law. If you continue you may haveaccess to information: Regarding HIV / AIDS; Provided by facilities licensed or operated by the [facility] Office of Mental Health; or Provided by the [facility] Office for People With Developmental Disabilities. If such information is present, then the following [facility] mandated warning applies: This information has been disclosed to you from confidential records which are protected by state law. State law prohibits you from making any further disclosure of this information without the specific written consent of the person to whom it pertains, or as otherwise permitted by law. Any unauthorized further disclosure in violation of state law may result in a fine or assisted sentence or both. A general authorization for the release of medical or other information is NOT sufficient authorization for further disclosure. Encounters Encounter Providers Location Date Indications Data Source(s ) Outpatient [facility] 05/02/2019 eCW3 ([facility] 12:00:00 AM [facility] EST - [facility]) 05/02/2019 12:00:00 AM EST Outpatient [facility] 04/04/2019 eCW3 ([facility] 12:00:00 [facility] EDT - Care) 04/04/2019 12:00:00 AM EDT (DentTx) Dental [facility] 03/21/2019 eCW3 ([facility] 12:00:00 [facility] EDT - Care) 03/21/2019 12:00:00 AM EDT Outpatient [facility] 03/07/2019 eCW3 ([facility] 12:00:00 [facility] EDT - Care) 03/07/2019 12:00:00 AM EDT (DentTx) Dental [facility] 02/09/2019 eCW3 ([facility] 12:00:00 AM [facility] EDT - Care) 02/09/2019 12:00:00 AM EDT Outpatient [facility] 02/07/2019 eCW3 ([facility] 12:00:00 [facility] EDT - Care) 02/07/2019 12:00:00 AM EDT Immunizations Vaccine Date Status Description Data Source(s) Tdap 03/12/2020 completed eCW3 ([facility] 12:38:00 PM EDT Health Care) Pneumococcal conjugate 03/12/2020 completed eCW3 ([facility] PCV 13 12:37:00 PM EDT Health Care) Medications Medication Brand Start Product Dose Route Administrative Pharmacy [facility] Indications Reaction Description Data Name Date Form Instructions Instructions Source(s) Rollator Rollat 09/18/ active Rollator e CW3 Ultra-Light or 2020 Ultra-Light ( [place] - Ultra- 12:00: - [facility] Light 00 AM Health - EDT Care) Rollator Rollat 09/18/ active Rollator e CW3 Ultra-Light or 2020 Ultra-Light ( [place] - Ultra- 12:00: - [facility] Light 00 AM Health - EDT Care) Rollator Rollat 09/18/ active Rollator e CW3 Ultra-Light or 2020 Ultra-Light ( [place] - Ultra- 12:00: - [facility] Light 00 AM Health - EDT Care) Rollator Rollat 09/18/ active Rollator e CW3 Ultra-Light or 2020 Ultra-Light ( [place] - Ultra- 12:00: - [facility] Light 00 AM Health - EDT Care) Rollator Rollat 09/18/ active Rollator e CW3 Ultra-Light or 2020 Ultra-Light ( [place] - Ultra- 12:00: - [facility] Light 00 AM Health - EDT Care) Rollator Rollat 09/18/ active Rollator e CW3 Ultra-Light or 2020 Ultra-Light ( [place] - Ultra- 12:00: - [facility] Light 00 AM Health - EDT Care) Rollator Rollat 09/18/ active Rollator e CW3 Ultra-Light or 2020 Ultra-Light ( [place] - Ultra- 12:00: - [facility] Light 00 AM Health - EDT Care) Rollator Rollat 09/18/ active Rollator e CW3 Ultra-Light or 2020 Ultra-Light ( [place] - Ultra- 12:00: - [facility] Light 00 AM Health - EDT Care) Rollator Rollat 09/18/ active Rollator e CW3 Ultra-Light or 2020 Ultra-Light ( [place] - Ultra- 12:00: - [facility] Light 00 AM Health - EDT Care) Rollator Rollat 09/18/ active Rollator e CW3 Ultra-Light or 2020 Ultra-Light ( [place] - Ultra- 12:00: - [facility] Light 00 AM Health - EDT Care) tizanidine Tizani .0 active Tizanidi ne eCW3 4 MG Oral dine 2018 {tabl HCl 4 MG ([facility] Table[facility] HCl 4 12:00: et_as [facility] Tizanidine MG 00 AM _need Health HCl 4 MG EDT ed} Care) tizanidine Tizani .0 active Tizanidi ne eCW3 4 MG Oral dine 2018 {tabl HCl 4 MG ([facility] Tablet HCl 4 12:00: et_as [facility] Tizanidine MG 00 AM _need Health HCl 4 MG EDT ed} Care) tizanidine Tizani .0 active Tizanidi ne eCW3 4 MG Oral dine 2018 {tabl HCl 4 MG ([facility] Tablet HCl 4 12:00: et_as [facility] Tizanidine MG 00 AM _need Health HCl 4 MG EDT ed} Care) tizanidine Tizani .0 active Tizanidi ne eCW3 4 MG Oral dine 2018 {tabl HCl 4 MG ([facility] Tablet HCl 4 12:00: et_as [facility] Tizanidine MG 00 AM _need Health HCl 4 MG EDT ed} Care) tizanidine Tizani .0 active Tizanidi ne eCW3 4 MG Oral dine 2018 {tabl HCl 4 MG ([facility] Tablet HCl 4 12:00: et_[facility] Tizanidine MG 00 AM _need Health HCl 4 MG EDT ed} Care) tizanidine Tizani .0 active Tizanidi ne eCW3 4 MG Oral dine 2018 {tabl HCl 4 MG ([facility] Tablet HCl 4 12:00: et_as [facility] Tizanidine MG 00 AM _need Health HCl 4 MG EDT ed} Care) Lidocaine Lidoca 09/08/ active Lidocaine -Pr eCW3 25 MG/ML / ine-Pr 2018 ilocaine ([facility] Prilocaine ilocai 12:00: 2.5-2.5 % [facility] 25 MG/ML ne 00 AM Health Topical 2.5-2. EDT Care) Cream 5 % Lidocaine-P rilocaine 2.5-2.5 % Lidocaine Lidoca 09/08/ active Lidocaine -Pr eCW3 25 MG/ML / ine-Pr 2018 ilocaine ([facility] Prilocaine ilocai 12:00: 2.5-2.5 % [facility] 25 MG/ML ne 00 AM Health Topical 2.5-2. EDT Care) Cream 5 % Lidocaine-P rilocaine 2.5-2.5 % Lidocaine Lidoca 09/08/ active Lidocaine -Pr eCW3 25 MG/ML / ine-Pr 2018 ilocaine ([facility] Prilocaine ilocai 12:00: 2.5-2.5 % [facility] 25 MG/ML ne 00 AM Health Topical 2.5-2. EDT Care) Cream 5 % Lidocaine-P rilocaine 2.5-2.5 % Ibuprofen Ibupro 09/08/ active Ibuprofen eCW3 600 MG Oral fen 2018 600 MG ([facility]t 600 MG 12:00: [facility] [place] EDT Care) Ibuprofen Ibupro 09/08/ active Ibuprofen eCW3 600 MG Oral fen 2018 600 MG ([facility]t 600 MG 12:00: [facility] EDT Care) Lidocaine Lidoca 09/08/ active Lidocaine -Pr eCW3 25 MG/ML / ine-Pr 2018 ilocaine ([facility] Prilocaine ilocai 12:00: 2.5-2.5 % [facility] 25 MG/ML ne 00 AM Health Topical 2.5-2. EDT Care) Cream 5 % Lidocaine-P rilocaine 2.5-2.5 % Lidocaine Lidoca 09/08/ active Lidocaine -Pr eCW3 25 MG/ML / ine-Pr 2018 ilocaine ([facility] Prilocaine ilocai 12:00: 2.5-2.5 % [facility] 25 MG/ML ne 00 AM Health Topical 2.5-2. EDT Care) Cream 5 % Lidocaine-P rilocaine 2.5-2.5 % Ibuprofen Ibupro 09/08/ active Ibuprofen eCW3 600 MG Oral fen 2018 600 MG ([facility] 600 MG 12:00: [place] [facility] EDT Care) Ibuprofen Ibupro 09/08/ active Ibuprofen eCW3 600 MG Oral fen 2018 600 MG ([facility] 600 MG 12:00: [facility]T Care) Ibuprofen Ibupro 09/08/ active Ibuprofen eCW3 600 MG Oral fen 2018 600 MG ([facility]t 600 MG 12:00: [facility] EDT Care) Ibuprofen Ibupro 09/08/ active Ibuprofen eCW3 600 MG Oral fen 2018 600 MG ([facility]t 600 MG 12:00: [facility] EDT Care) Lidocaine Lidoca 09/08/ active Lidocaine -Pr eCW3 25 MG/ML / ine-Pr 2018 ilocaine ([facility] Prilocaine ilocai 12:00: 2.5-2.5 % [facility] 25 MG/ML ne 00 AM Health Topical 2.5-2. EDT Care) Cream 5 % Lidocaine-P rilocaine 2.5-2.5 % Insurance Providers Payer name Policy type Policy ID Covered Covered republican's Policy P juanpablo / Coverage republican ID relationship to Guan Inf ormation type gaun HEALTH [id number] SP [id number] [employer] [id number] SP [id number] [employer] Problems, Conditions, and Diagnoses Code Display Name Description Problem Type Effective Dates Data Source(s) 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 03/12/2020 eCW3 ([place] 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 12:00:00 AM [facility] therapy patient therapy patient Care ) F17.200 Tobacco use Tobacco use Problem 03/12/2020 eCW3 ([place] disorder disorder 12:00:00 AM [facility] Care) 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 01/25/2020 eCW3 ([place] esophageal esophageal 12:00:00 AM [facility] 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 Care ) bleeding bleeding K74.60 Unspecified Unspecified Problem 01/25/2020 eCW3 ([place] cirrhosis of cirrhosis of 12:00:[address] [facility] liver Care) 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 01/25/2020 eCW3 ([place] esophageal esophageal 12:00:00 AM [facility] 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 Care ) bleeding bleeding K74.60 Unspecified Unspecified Problem 01/25/2020 eCW3 ([place] cirrhosis of cirrhosis of 12:00:[address] [facility] liver Care) G89.29 Other chronic Other chronic Problem 09/19/2019 eCW3 ([facility] pain pain 12:00:00 AM [facility] Care) G89.29 Other chronic Other chronic Problem 09/19/2019 eCW3 ([facility] pain pain 12:00:00 AM [facility] Care) Results ID Date Data Source [id number] 03/22/2020 12:26:00 AM EDT [facility] Name Value Range Interpretation Code Description Data Vanessa rce(s) Supporting Document(s ) SARS-CoV-2 [facility] RNA Resp Ql TRISH+probe This lab was ordered by [place] and evelyn ren by [facility]. ID Date Data Source [id number] 12/31/2019 02:30:00 PM EDT [facility] Name Value Range Interpretation Description Data Sup porting Code Source(s) Document(s ) SARS [facility] coronavirus 2 RNA This lab was ordered by [facility] France Stanton and reported by [facility]. ID Date Data Source [id number] 11/26/2019 03:00:00 PM EDT [facility] Name Value Range Interpretation Description Data Sup porting Code Source(s) Document(s ) SARS [facility] CORONAVIRUS 2 RNA This lab was ordered by [facility] and reported by [facility]. Procedure Social History Code Duration Value Status Description Data Source(s ) Smoking 03/12/2020 Current Smoker completed Current Smoker eCW3 ( [facility] 12:00:00 AM EDT Health Ca re) Smoking 01/25/2020 Current Smoker completed Current Smoker eCW3 ( [facility] [facility] 12:00:00 AM EDT Health Ca re) Smoking 01/25/2020 Current Smoker completed Current Smoker eCW3 ( [facility] [facility] 12:00:00 AM EDT Health Ca re) Smoking 01/25/2020 Current Smoker completed Current Smoker eCW3 ( [facility] [facility] 12:00:00 AM EDT Health Ca re) Smoking 11/04/2019 Current Smoker completed Current Smoker eCW3 ( [facility] 12:00:00 AM EDT Health Ca re) Smoking 11/04/2019 Current Smoker completed Current Smoker eCW3 ( [facility] [facility] 12:00:00 AM EDT Health Ca re) Smoking 11/04/2019 Current Smoker completed Current Smoker eCW3 ( [place] [facility] 12:00:00 AM EDT Health Ca re) Smoking 11/04/2019 Current Smoker completed Current Smoker eCW3 ( [facility] [facility] 12:00:00 AM EDT Health Ca re) Smoking 10/19/2019 Current Smoker completed Current Smoker eCW3 ( [facility] [facility] 12:00:00 AM EDT Health Ca re) Smoking 10/19/2019 Current Smoker completed Current Smoker eCW3 ( [facility] 12:00:00 AM EDT Health Ca re) Smoking 03/21/2019 Current Smoker completed Current Smoker eCW3 ( [facility] [facility] 12:00:00 AM EDT Health Ca re) Smoking 03/21/2019 Current Smoker completed Current Smoker eCW3 ( [place] [facility] 12:00:00 AM EDT Health Ca re) Vital Signs ID Date Data Source UNK Name Value Range Interpretation Code Description Data Source(s) Diastolic blood 68 mm[Hg] 68 mm[Hg] eCW3 ([facility]) Systolic blood 106 mm[Hg] 106 mm[Hg] eCW3 ([facility]) Heart rate 16 /min 16 /min eCW3 ([facility]) Body mass index 23.48 kg/m2 23.48 kg/m2 eCW3 ([facility] (BMI) [Ratio] [facility]) Body weight 159 [lb_av] 159 [lb_av] eCW3 ([facility]) Body height [in_i] eCW3 ([facility]) Diastolic blood 72 mm[Hg] 72 mm[Hg] eCW3 ([facility]) Systolic blood 109 mm[Hg] 109 mm[Hg] eCW3 ([facility]) Heart rate 16 /min 16 /min eCW3 ([facility]) Body mass index 22.30 kg/m2 22.30 kg/m2 eCW3 ([facility] (BMI) [Ratio] [facility]) Body weight 151 [lb_av] 151 [lb_av] eCW3 ([facility]) Body height [in_i] eCW3 ([facility]) Diastolic blood 79 mm[Hg] 79 mm[Hg] eCW3 ([facility]) Systolic blood 111 mm[Hg] 111 mm[Hg] eCW3 ([facility]) Heart rate 16 /min 16 /min eCW3 ([facility]) Body mass index 21.56 kg/m2 21.56 kg/m2 eCW3 ([facility] (BMI) [Ratio] [facility]) Body weight 146 [lb_av] 146 [lb_av] eCW3 ([facility]) Body height [in_i] eCW3 ([facility]) Patient Treatment Plan of Care Planned Activity Planned Date Details Description Data Source (s) tizanidine 4 MG Oral 09/24/2017 12:00:00 eCW3 ([facility]) tizanidine 4 MG Oral 09/24/2017 12:00:00 eCW3 ([place] Tablet [facility]) Ibuprofen 600 MG Oral 09/08/2017 12:00:00 eCW3 ([place] Tablet [facility]) Lidocaine 25 MG/ML / 09/08/2017 12:00:00 eCW3 ([place] Prilocaine 25 MG/ML [facility] are) Topical Cream Ibuprofen 600 MG Oral 09/08/2017 12:00:00 eCW3 ([place] Tablet [facility]) Lidocaine 25 MG/ML / 09/08/2017 12:00:00 eCW3 ([place] Prilocaine 25 MG/ML [facility] are) Topical Cream
--- NOTE | 2020-04-06 11:50 | BHS.RME ---
Substance Use & Tx History - Substance Use History Alcohol Substance amount: 1-2 pints Frequency of use: Daily Substance route: Oral Date of Last Use: 04/05/20 (started age 11) Heroin Substance amount: 1 bundle Frequency of use: Daily Substance route: Injection (ex: intravenous or skin popping) Date of Last Use: 04/05/20 Cocaine-Crack Substance amount: 1 gram Frequency of use: Daily Substance route: Smoking Date of Last Use: 04/05/20
[2020-04-06 12:15] VITALS: BMI 23.4
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
[2020-04-06] MEDS ORDERED: ALBUTEROL SO4 HFA INHALER IH PRN (13:27)
[2020-04-06] MEDS ORDERED: MAGNESIUM CITRATE 300 ML BOTTLE PO PRN (13:30)
[2020-04-06] MEDS ORDERED: IBUPROFEN 400 MG TABLET (FP) PO PRN (13:30)
[2020-04-06] MEDS ORDERED: METHOCARBAMOL 500 MG TABLET PO PRN (13:30)
[2020-04-06] MEDS ORDERED: MAGNESIUM HYDROX 2400MG/30ML ORAL SUSPENSION 30 ML CUP PO PRN (13:30)
[2020-04-06] MEDS ORDERED: BISMUTH SUBSALICYLATE 262 MG/15 ML BTL PO PRN (13:30)
[2020-04-06] MEDS ORDERED: MENTHOL/PHENOL 1 EACH UD MM PRN (13:30)
[2020-04-06] MEDS ORDERED: MAG HYDROX/AL HYDROX/SIMETH 30 ML UNIT-DOSE CUP PO PRN (13:30)
[2020-04-06] MEDS ORDERED: ONDANSETRON *ODT* 4 MG TABLET SL PRN (13:30)
[2020-04-06] MEDS ORDERED: chlordiazePOXIDE HCL 25 MG CAPSULE PO PRN (13:30)
[2020-04-06] MEDS ORDERED: ACETAMINOPHEN 325 MG TABLET (FP) PO PRN ×2 (13:30)
--- OUTSIDE RECORDS SUMMARY | 2020-04-06 13:34 | XMS ---
:1970 Author Organization [facility] Support Name Relationship Address Phone UE, UNEMPLOYED Unavailable Unavailable Unavailable UE Unavailable Unavailable Unavailable ISECUSHAUNNA GASTON [address] [place] [address] IRRIZARRZORAN Telles BROTHER [address] [place] [address] IRRZORAN CROFT Brother [address] [place] [address] rocha, zoran Unavailable Unavailable Unavailable Re-disclosure Warning [...] is protected by Article 27-F of the [facility] Public Health law. If you continue you may haveaccess to information: Regarding HIV / AIDS; Provided by facilities licensed or operated by the [facility] Office of Mental Health; or Provided by the [facility] Office for People With Developmental Disabilities. If such information is present, then the following [facility] mandated warning applies: This information has been [...] law may result in a fine or shelter sentence or both. A general authorization for the release of medical or other information is NOT sufficient authorization for further disclosure. Encounters Encounter Providers Location Date Indications Data Source(s ) Outpatient [facility] 05/02/2019 eCW3 ([facility] 12:00:00 [facility] - [facility]) 05/02/2019 12:00:[address] [facility] 04/04/2019 eCW3 ([facility] 12:00:00 [facility] EDT - Care) 04/04/2019 12:00:00 AM EDT (DentTx) Dental [facility] 03/21/2019 eCW3 ([facility] 12:00:00 [facility] EDT - Care) 03/21/2019 12:00:[address] [facility] 03/07/2019 eCW3 ([facility] 12:00:00 [facility]T - [facility]) 03/07/2019 12:00:00 AM EDT (DentTx) Dental [facility] 02/09/2019 eCW3 ([facility] 12:00:00 AM [facility] EDT - Care) 02/09/2019 12:00:[address] [facility] 02/07/2019 eCW3 ([facility] 12:[facility]:00 [facility]T - [facility]) 02/07/2019 12:00:00 AM EDT Immunizations Vaccine Date Status Description Data Source(s) Tdap 03/12/2020 completed eCW3 ([facility] 12:38:00 PM EDT [facility] Care) Pneumococcal conjugate 03/12/2020 completed eCW3 ([facility] PCV 13 12:37:00 PM EDT Health Care) Medications Medication Brand Start Product Dose Route Administrative Pharmacy [facility] Indications Reaction Description Data Name [...] n Tablet 600 MG 12:00: [facility] EDT Care) Ibuprofen Ibupro 09/08/ active Ibuprofen eCW3 600 MG Oral fen 2018 600 MG ([place] Tablet 600 MG 12:00: [facility] EDT Care) Lidocaine Lidoca 09/08/ active Lidocaine [...] MG ([place] [facility] Tablet 600 MG 12:00: [place] [facility] EDT Care) Ibuprofen Ibupro 09/08/ active Ibuprofen eCW3 600 MG Oral fen 2018 600 MG ([place] [facility] Tablet 600 MG 12:00: [facility]) Ibuprofen Ibupro 09/08/ active Ibuprofen eCW3 600 MG Oral fen 2018 600 MG ([place] [facility] Tablet 600 MG 12:00: [facility] EDT Care) Ibuprofen Ibupro 09/08/ active Ibuprofen eCW3 600 MG Oral fen 2018 600 MG ([place] [facility] Tablet 600 MG 12:00: [facility] EDT Care) Lidocaine Lidoca 09/08/ active Lidocaine -Pr eCW3 25 MG/ML / ine-Pr 2018 ilocaine ([facility] Prilocaine ilocai 12:00: 2.5-2.5 % [facility] 25 MG/ML ne 00 AM Health Topical 2.5-2. EDT Care) Cream 5 % Lidocaine-P rilocaine 2.5-2.5 % Insurance Providers Payer name Policy type Policy ID Covered Covered green party's Policy P juanpablo / Coverage green party ID relationship to Guan Inf ormation type guan HEALTH [id number] SP [id number] [employer] [id number] SP [id number] FIRST Problems, Conditions, and Diagnoses Code Display Name Description Problem Type Effective Dates Data Source(s) 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 03/12/2020 eCW3 ([place] 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 12:00:00 AM [facility] therapy patient therapy patient Care ) F17.200 Tobacco use Tobacco use Problem 03/12/2020 eCW3 ([place] disorder disorder 12:00:00 AM [facility] Care) 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 01/25/2020 eCW3 ([place] esophageal esophageal 12:00:00 AM [facility] 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 Care ) bleeding bleeding K74.60 Unspecified Unspecified Problem 01/25/2020 eCW3 ([place] cirrhosis of cirrhosis of 12:00:00 AM [facility] liver Care) 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 01/25/2020 eCW3 ([place] esophageal esophageal 12:00:00 AM [facility] 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 Care ) bleeding bleeding K74.60 Unspecified Unspecified Problem 01/25/2020 eCW3 ([place] cirrhosis of cirrhosis of 12:00:00 AM [facility] liver Care) G89.29 Other chronic Other chronic Problem 09/19/2019 eCW3 ([facility] pain pain 12:00:00 AM [facility] Care) G89.29 Other chronic Other chronic Problem 09/19/2019 eCW3 ([facility] pain pain 12:00:00 AM [facility] Care) Results ID Date Data Source [id number] 03/22/2020 12:26:00 AM EDT [facility] Name Value Range Interpretation Code Description Data Vanessa rce(s) Supporting Document(s ) SARS-CoV-2 [facility] RNA Resp Ql TRISH+probe This lab was ordered by [place] and evelyn ren by [facility]. ID Date Data Source [id number] 12/31/2019 02:30:00 PM EDT [facility] Name Value Range Interpretation Description Data Sup porting Code Source(s) Document(s ) SARS [facility] coronavirus 2 RNA This lab was ordered by [facility] [place] and reported by [facility]. ID Date Data Source [id number] 11/26/2019 03:00:00 PM EDT [facility] Name Value Range Interpretation Description Data Sup porting Code Source(s) Document(s ) SARS [facility] CORONAVIRUS 2 RNA This lab was ordered by [facility] and reported by [facility]. Procedure Social [...] Diastolic blood 68 mm[Hg] 68 mm[Hg] eCW3 ([facility]) Systolic blood 106 mm[Hg] 106 mm[Hg] eCW3 ([facility]) Heart rate 16 /min 16 /min eCW3 ([facility]) Body mass index 23.48 kg/m2 23.48 kg/m2 eCW3 ([facility] (BMI) [Ratio] [facility]) Body weight 159 [lb_av] 159 [lb_av] eCW3 ([facility]) Body height [in_i] eCW3 ([facility]) Diastolic blood 72 mm[Hg] 72 mm[Hg] eCW3 ([facility]) Systolic blood 109 mm[Hg] 109 mm[Hg] eCW3 ([facility]) Heart rate 16 /min 16 /min eCW3 ([facility]) Body mass index 22.30 kg/m2 22.30 kg/m2 eCW3 ([facility] (BMI) [Ratio] [facility]) Body weight 151 [lb_av] 151 [lb_av] eCW3 ([facility]) Body height [in_i] eCW3 ([facility]) Diastolic blood 79 mm[Hg] 79 mm[Hg] eCW3 ([facility]) Systolic blood 111 mm[Hg] 111 mm[Hg] eCW3 ([facility]) Heart rate 16 /min 16 /min eCW3 ([facility]) Body mass index 21.56 kg/m2 21.56 kg/m2 eCW3 ([facility] (BMI) [Ratio] [facility]) Body weight 146 [lb_av] 146 [lb_av] eCW3 ([facility]) Body height [in_i] eCW3 ([facility]) Patient Treatment Plan of Care Planned Activity Planned Date Details Description Data Source (s) tizanidine 4 MG Oral 09/24/2017 12:00:00 eCW3 ([facility]) tizanidine 4 MG Oral 09/24/2017 12:00:00 eCW3 ([place] [facility] Tablet [facility]) Ibuprofen 600 MG Oral 09/08/2017 12:00:00 eCW3 ([place] Tablet [facility]) Lidocaine 25 MG/ML / 09/08/2017 12:00:00 eCW3 ([place] [facility] Prilocaine 25 MG/ML [facility]) Topical Cream Ibuprofen 600 MG Oral 09/08/2017 12:00:00 eCW3 ([place] Tablet [facility]) Lidocaine 25 MG/ML / 09/08/2017 12:00:00 eCW3 ([place] [facility] Prilocaine 25 MG/ML [facility]) Topical Cream
[2020-04-06] MEDS: NICOTINE 21 MG/24 HOURS TOPICAL PATCH TD SCH (15:20)
[2020-04-06] MEDS: hydrOXYzine PAMOATE 25 MG CAPSULE (FP) PO SCH ×3 (15:20→22:25)
[2020-04-06 16:26] LABS: HEMATOCRIT 29.7 % (35.4-49); HEMOGLOBIN 10.1 GM/dL (11.7-16.9); MCH 31.1 pg (25.7-33.7); MEAN CELL VOLUME 91.5 fl (80-96); MEAN PLT VOLUME 8.9 fl (7.5-11.1); PLATELET COUNT 351 K/MM3 (134-434); RBC 3.25 M/mm3 (4.00-5.60); RDW 17.3 % (11.9-15.9); WHITE BLOOD COUNT 5.5 K/mm3 (4.0-10.0)
[2020-04-06 16:34] LABS: ALBUMIN 3.5 g/dl (3.4-5.0); BILIRUBIN,TOTAL 0.6 mg/dL (0.2-1); BLOOD UREA NITROGEN 21.5 mg/dL (7-18); CALCIUM 9.1 mg/dL (8.5-10.1); CREATININE 1.1 mg/dL (0.55-1.3); POTASSIUM 3.7 mmol/L (3.5-5.1); TOT PROT 7.4 g/dl (6.4-8.2)
[2020-04-06] MEDS: EMTRICITABINE 200MG/TENOFOVIR 300MG PO SCH (17:49)
[2020-04-06] MEDS: chlordiazePOXIDE HCL 25 MG CAPSULE PO SCH ×2 (17:49→22:25)
[2020-04-06] MEDS ORDERED: LACTULOSE 20 GM/30 ML UDC (FOR ORAL USE ONLY) PO ONE (21:16)
[2020-04-06] MEDS: THIAMINE HCL 100 MG TABLET (FP) PO SCH (22:25)
[2020-04-06] MEDS: MELATONIN 5 MG TABLETS PO SCH (22:25)
[2020-04-07] MEDS: hydrOXYzine PAMOATE 25 MG CAPSULE (FP) PO SCH ×5 (05:18→22:24)
[2020-04-07] MEDS: chlordiazePOXIDE HCL 25 MG CAPSULE PO SCH ×2 (05:18→10:30)
[2020-04-07] MEDS ORDERED: LACTULOSE 20 GM/30 ML UDC (FOR ORAL USE ONLY) PO ONE (07:54)
--- NOTE | 2020-04-07 07:54 | PN ---
S Progress Note Note: Pastient's ammonia level is 44.80. Patient is asymptomatic Vital Signs Temperature 97.7 F 04/07/20 05:16 Pulse Rate 72 04/07/20 05:16 Respiratory Rate 18 04/07/20 05:16 Blood Pressure 107/64 04/07/20 05:16 O2 Sat by Pulse Oximetry (%) 100 04/07/20 05:16 Laboratory Last Values WBC 5.5 K/mm3 (4.0-10.0) 04/06/20 12:55 RBC 3.25 M/mm3 (4.00-5.60) L 04/06/20 12:55 Hgb 10.1 GM/dL (11.7-16.9) L 04/06/20 12:55 Hct 29.7 % (35.4-49) L 04/06/20 12:55 MCV 91.5 fl (80-96) 04/06/20 12:55 MCH 31.1 pg (25.7-33.7) 04/06/20 12:55 MCHC 34.0 g/dl (32.0-35.9) 04/06/20 12:55 RDW 17.3 % (11.9-15.9) H 04/06/20 12:55 Plt Count 351 K/MM3 (134-434) D 04/06/20 12:55 MPV 8.9 fl (7.5-11.1) 04/06/20 12:55 Sodium 140 mmol/L (136-145) 04/06/20 12:55 Potassium 3.7 mmol/L (3.5-5.1) 04/06/20 12:55 Chloride 106 mmol/L (98-107) 04/06/20 12:55 Carbon Dioxide 28 mmol/L (21-32) 04/06/20 12:55 Anion Gap 6 MMOL/L (8-16) L 04/06/20 12:55 BUN 21.5 mg/dL (7-18) H 04/06/20 12:55 Creatinine 1.1 mg/dL (0.55-1.3) 04/06/20 12:55 Est GFR (CKD-EPI)AfAm 89.61 04/06/20 12:55 Est GFR (CKD-EPI)NonAf 77.32 04/06/20 12:55 Random Glucose 141 mg/dL (74-106) H 04/06/20 12:55 Calcium 9.1 mg/dL (8.5-10.1) 04/06/20 12:55 Total Bilirubin 0.6 mg/dL (0.2-1) 04/06/20 12:55 AST 105 U/L (15-37) H 04/06/20 12:55 ALT 185 U/L (13-61) H 04/06/20 12:55 Alkaline Phosphatase 105 U/L (45-117) 04/06/20 12:55 Ammonia 44.80 umol/L (11-32) H 04/06/20 13:59 Total Protein 7.4 g/dl (6.4-8.2) 04/06/20 12:55 Albumin 3.5 g/dl (3.4-5.0) 04/06/20 12:55 Phenytoin <0.4 04/06/20 15:15 Syphilis Serology Non-reactive (NONREACTIVE) 04/06/20 12:55 Action: Lactoluse 20gm oral x 2 ordered
--- NOTE | 2020-04-07 08:17 | EKG ---
Test Reason : Blood Pressure : / mmHG Vent. Rate : 084 BPM Atrial Rate : 084 BPM P-R Int : 184 ms QRS Dur : 088 ms QT Int : 414 ms P-R-T Axes : 104 024 053 degrees QTc Int : 489 ms NORMAL SINUS RHYTHM MINIMAL VOLTAGE CRITERIA FOR LVH, MAY BE NORMAL VARIANT PROLONGED QT ABNORMAL ECG WHEN COMPARED WITH ECG OF 11-JAN-2020 14:58, NO SIGNIFICANT CHANGE WAS FOUND Confirmed by Beverly Yanez ([id number]) on 04/07/2020 8:16:55 AM Referred By: Confirmed By:Beverly Yanez
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
[2020-04-07] MEDS: METHADONE HCL 10 MG TABLET PO SCH (10:29)
[2020-04-07] MEDS: EMTRICITABINE 200MG/TENOFOVIR 300MG PO SCH (10:29)
[2020-04-07] MEDS: PRENATAL VITAMINS W/ FOLIC ACID TABLET (FP) PO SCH (10:29)
[2020-04-07] MEDS: NICOTINE 21 MG/24 HOURS TOPICAL PATCH TD SCH (10:30)
[2020-04-07] MEDS ORDERED: LORazepam 1 MG TABLET PO PRN (11:10)
--- NOTE | 2020-04-07 11:14 | PN ---
[facility] CIWA - CIWA Score Nausea/Vomitin-No Nausea/No Vomiting Muscle Tremors: 2 Anxiety: 3 Agitation: 1-Slight > Activity Paroxysmal Sweats: 3 Orientation: 0-Oriented Tacttile Disturbances: 0-None Auditory Disturbances: 0-None Visual Disturbances: 0-None Headache: 1-Very Mild CIWA-Ar Total Score: 10 S Progress Note (SOAP) Subjective: c/o anxiety, sweats, headache, and shakes. Objective: 04/07/20 11:06 Vital Signs 04/07/20 04/07/20 05:16 08:56 Temperature 97.7 F 97.1 F L Pulse Rate 72 91 H Respiratory 18 16 Rate Blood Pressure 107/64 118/82 O2 Sat by Pulse 100 Oximetry (%) Laboratory Last Values WBC 5.5 K/mm3 (4.0-10.0) 04/06/20 12:55 RBC 3.25 M/mm3 (4.00-5.60) L 04/06/20 12:55 Hgb 10.1 GM/dL (11.7-16.9) L 04/06/20 12:55 Hct 29.7 % (35.4-49) L 04/06/20 12:55 MCV 91.5 fl (80-96) 04/06/20 12:55 MCH 31.1 pg (25.7-33.7) 04/06/20 12:55 MCHC 34.0 g/dl (32.0-35.9) 04/06/20 12:55 RDW 17.3 % (11.9-15.9) H 04/06/20 12:55 Plt Count 351 K/MM3 (134-434) D 04/06/20 12:55 MPV 8.9 fl (7.5-11.1) 04/06/20 12:55 Sodium 140 mmol/L (136-145) 04/06/20 12:55 Potassium 3.7 mmol/L (3.5-5.1) 04/06/20 12:55 Chloride 106 mmol/L (98-107) 04/06/20 12:55 Carbon Dioxide 28 mmol/L (21-32) 04/06/20 12:55 Anion Gap 6 MMOL/L (8-16) L 04/06/20 12:55 BUN 21.5 mg/dL (7-18) H 04/06/20 12:55 Creatinine 1.1 mg/dL (0.55-1.3) 04/06/20 12:55 Est GFR (CKD-EPI)AfAm 89.61 04/06/20 12:55 Est GFR (CKD-EPI)NonAf 77.32 04/06/20 12:55 Random Glucose 141 mg/dL (74-106) H 04/06/20 12:55 Calcium 9.1 mg/dL (8.5-10.1) 04/06/20 12:55 Total Bilirubin 0.6 mg/dL (0.2-1) 04/06/20 12:55 AST 105 U/L (15-37) H 04/06/20 12:55 ALT 185 U/L (13-61) H 04/06/20 12:55 Alkaline Phosphatase 105 U/L (45-117) 04/06/20 12:55 Ammonia 44.80 umol/L (11-32) H 04/06/20 13:59 Total Protein 7.4 g/dl (6.4-8.2) 04/06/20 12:55 Albumin 3.5 g/dl (3.4-5.0) 04/06/20 12:55 Phenytoin <0.4 04/06/20 15:15 Syphilis Serology Non-reactive (NONREACTIVE) 04/06/20 12:55 COVID-19 (TRISH) Not detected (Not Detected) 04/06/20 14:00 Labs noted with elevated AST/ALT. Assessment: 04/07/20 11:07 AOX3, in no acute respiratory distress. Full ROM, ambulating in the unit. Withdrawal symptoms. Elevated liver enzymes. Plan: change librium to ativan protocol.
[2020-04-07] MEDS: NICOTINE POLACRILEX 2 MG GUM BUC PRN (12:26)
--- NOTE | 2020-04-07 14:38 | PN ---
[facility] Progress Note Note: I was called to see this 49year old male who had a seizure episode. As per staff, pt c/o of dizziness and when she got there pt was going down and was assisted to the floor, then pt started seizing, had a blank stare for 3secs and stopped. Pt was evaluated and he reports that he has metallic taste in his mouth. Pt also reports that he is on Dilantin but noncompliant. Vital Signs 04/07/20 04/07/20 04/07/20 08:56 12:21 13:59 Temperature 97.1 F L 97.5 F L Pulse Rate 91 H 113 H 92 H Respiratory 16 18 20 Rate Blood Pressure 118/82 109/74 121/78 O2 Sat by Pulse 98 99 Oximetry (%) Laboratory Last Values WBC 5.5 K/mm3 (4.0-10.0) 04/06/20 12:55 RBC 3.25 M/mm3 (4.00-5.60) L 04/06/20 12:55 Hgb 10.1 GM/dL (11.7-16.9) L 04/06/20 12:55 Hct 29.7 % (35.4-49) L 04/06/20 12:55 MCV 91.5 fl (80-96) 04/06/20 12:55 MCH 31.1 pg (25.7-33.7) 04/06/20 12:55 MCHC 34.0 g/dl (32.0-35.9) 04/06/20 12:55 RDW 17.3 % (11.9-15.9) H 04/06/20 12:55 Plt Count 351 K/MM3 (134-434) D 04/06/20 12:55 MPV 8.9 fl (7.5-11.1) 04/06/20 12:55 Sodium 140 mmol/L (136-145) 04/06/20 12:55 Potassium 3.7 mmol/L (3.5-5.1) 04/06/20 12:55 Chloride 106 mmol/L (98-107) 04/06/20 12:55 Carbon Dioxide 28 mmol/L (21-32) 04/06/20 12:55 Anion Gap 6 MMOL/L (8-16) L 04/06/20 12:55 BUN 21.5 mg/dL (7-18) H 04/06/20 12:55 Creatinine 1.1 mg/dL (0.55-1.3) 04/06/20 12:55 Est GFR (CKD-EPI)AfAm 89.61 04/06/20 12:55 Est GFR (CKD-EPI)NonAf 77.32 04/06/20 12:55 Random Glucose 141 mg/dL (74-106) H 04/06/20 12:55 Calcium 9.1 mg/dL (8.5-10.1) 04/06/20 12:55 Total Bilirubin 0.6 mg/dL (0.2-1) 04/06/20 12:55 AST 105 U/L (15-37) H 04/06/20 12:55 ALT 185 U/L (13-61) H 04/06/20 12:55 Alkaline Phosphatase 105 U/L (45-117) 04/06/20 12:55 Ammonia 44.80 umol/L (11-32) H 04/06/20 13:59 Total Protein 7.4 g/dl (6.4-8.2) 04/06/20 12:55 Albumin 3.5 g/dl (3.4-5.0) 04/06/20 12:55 Phenytoin <0.4 04/06/20 15:15 Syphilis Serology Non-reactive (NONREACTIVE) 04/06/20 12:55 COVID-19 (TRISH) Not detected (Not Detected) 04/06/20 14:00 Assessment: Seizure episode. c/o Dizziness. AAOX3, in no acute respiratory distress. Plan: Send pt to [facility] ED for evaluation. Verbal report given to Dr. Peres.
[2020-04-07] MEDS ORDERED: LORazepam 2 MG TABLET PO PRN (17:00)
--- NOTE | 2020-04-07 20:41 | PN ---
[facility] Progress Note Note: patient returned from er at [facility],medically clear to return for continue detox received dilantin 100 mgs in er alert,oriented x 3 stated that he has history of seizure supposed to take dilantin 100 mgs po tid but did not take medication for 1 week ammonia level 44.80 dilantin level<0.4 Vital Signs Temperature 97.6 F 04/07/20 20:06 Pulse Rate 90 04/07/20 20:06 Respiratory Rate 17 04/07/20 20:06 Blood Pressure 114/81 04/07/20 20:06 O2 Sat by Pulse Oximetry (%) 98 04/07/20 20:06 treatment dilantin 300mg po now loading dose continue dilantin 100 mgs po tid seizure precaution repeat dilantin level in am lactulose 20 grams po bid repeat ammonia level in am close monitoring continue detox ativan regimen continue methadone maintenance 30 mgs po daily
[2020-04-07] MEDS ORDERED: PHENYTOIN NA EXTENDED 100 MG CAPSULE (FP) PO ONE (20:45)
[2020-04-07] MEDS: OLANZapine 10 MG TABLET PO SCH (22:24)
[2020-04-07] MEDS: MELATONIN 5 MG TABLETS PO SCH (22:24)
[2020-04-07] MEDS: THIAMINE HCL 100 MG TABLET (FP) PO SCH (22:24)
[2020-04-07] MEDS: LACTULOSE 20 GM/30 ML UDC (FOR ORAL USE ONLY) PO SCH (22:25)
[2020-04-08] MEDS ORDERED: chlordiazePOXIDE HCL 25 MG CAPSULE PO SCH (05:00)
[2020-04-08] MEDS: hydrOXYzine PAMOATE 25 MG CAPSULE (FP) PO SCH ×2 (05:37→10:28)
[2020-04-08] MEDS: LORazepam 1 MG TABLET PO SCH ×4 (05:37→22:59)
[2020-04-08] MEDS: PHENYTOIN NA EXTENDED 100 MG CAPSULE (FP) PO SCH ×3 (05:37→22:58)
[2020-04-08] MEDS: LACTULOSE 20 GM/30 ML UDC (FOR ORAL USE ONLY) PO SCH ×2 (10:25→23:00)
[2020-04-08] MEDS: CITALOPRAM HYDROBROMIDE 20 MG TABLET PO SCH (10:26)
[2020-04-08] MEDS: PRENATAL VITAMINS W/ FOLIC ACID TABLET (FP) PO SCH (10:26)
[2020-04-08] MEDS: METHADONE HCL 10 MG TABLET PO SCH (10:26)
[2020-04-08] MEDS: EMTRICITABINE 200MG/TENOFOVIR 300MG PO SCH (10:26)
[2020-04-08] MEDS: NICOTINE 21 MG/24 HOURS TOPICAL PATCH TD SCH (10:33)
--- NOTE | 2020-04-08 12:05 | PN ---
S CIWA - CIWA Score Nausea/Vomitin-Mild Nausea/No Vomiting Muscle Tremors: 1-None Visible, but Hundred Anxiety: 1-Mildly Anxious Agitation: 0-Normal Activity Paroxysmal Sweats: No Perspiration Orientation: 0-Oriented Tacttile Disturbances: 0-None Auditory Disturbances: 0-None Visual Disturbances: 2-Mild Sensitivity Headache: 2-Mild CIWA-Ar Total Score: 7 S Progress Note (SOAP) Subjective: 49 years old male was admitted on 04/06/20 for alcohol withdrawal sx management treating with ativan detox regiment long history of seizure treated with dilantin lack of dilantin compliance mr morrell had seizure on 04/07/20 sent to ER with 300mg dilantin loading dose return to [facility] continue alcohol withdrawal management received methaodne 30mg today ammonia serum level elevation increase lactulose to qid repeat ammonia level low dilantin serum level 300mg po loading dose today Objective: 04/08/20 12:21 Vital Signs - 24 hr 04/07/20 04/07/20 04/08/20 13:59 20:06 07:05 Temperature 97.6 F 97.5 F L Pulse Rate 92 H 90 76 Respiratory 20 17 18 Rate Blood Pressure 121/78 114/81 106/69 O2 Sat by Pulse 99 98 99 Oximetry (%) 04/08/20 08:26 Temperature 97.5 F L Pulse Rate 79 Respiratory 18 Rate Blood Pressure 120/78 O2 Sat by Pulse Oximetry (%) Laboratory Tests 04/06/20 04/06/20 04/06/20 12:55 12:55 12:55 WBC 5.5 RBC 3.25 L Hgb 10.1 L Hct 29.7 L MCV 91.5 MCH 31.1 MCHC 34.0 RDW 17.3 H Plt Count 351 D MPV 8.9 Sodium 140 Potassium 3.7 Chloride 106 Carbon Dioxide 28 Anion Gap 6 L BUN 21.5 H Creatinine 1.1 Est GFR (CKD-EPI)AfAm 89.61 Est GFR (CKD-EPI)NonAf 77.32 Random Glucose 141 H Calcium 9.1 Total Bilirubin 0.6 AST 105 H ALT 185 H Alkaline Phosphatase 105 Ammonia Total Protein 7.4 Albumin 3.5 Phenytoin Syphilis Serology Non-reactive COVID-19 (TRISH) 04/06/20 04/06/20 04/06/20 13:59 14:00 15:15 WBC RBC Hgb Hct MCV MCH MCHC RDW Plt Count MPV Sodium Potassium Chloride Carbon Dioxide Anion Gap BUN Creatinine Est GFR (CKD-EPI)AfAm Est GFR (CKD-EPI)NonAf Random Glucose Calcium Total Bilirubin AST ALT Alkaline Phosphatase Ammonia 44.80 H Total Protein Albumin Phenytoin <0.4 Syphilis Serology COVID-19 (TRISH) Not detected 04/08/20 04/08/20 07:35 07:35 WBC RBC Hgb Hct MCV MCH MCHC RDW Plt Count MPV Sodium Potassium Chloride Carbon Dioxide Anion Gap BUN Creatinine Est GFR (CKD-EPI)AfAm Est GFR (CKD-EPI)NonAf Random Glucose Calcium Total Bilirubin AST ALT Alkaline Phosphatase Ammonia 61.80 H Total Protein Albumin Phenytoin 5.4 Syphilis Serology COVID-19 (TRISH) 04/08/20 12:22 repeat ammonia repeat dilantin repeat ast Assessment: 04/08/20 12:23 alcohol withdrawal Plan: ativan regiment
[2020-04-08] MEDS ORDERED: PHENYTOIN NA EXTENDED 100 MG CAPSULE (FP) PO ONE (12:20)
[2020-04-08] MEDS: NICOTINE POLACRILEX 2 MG GUM BUC PRN (14:53)
[2020-04-08] MEDS: MELATONIN 5 MG TABLETS PO SCH (22:58)
[2020-04-08] MEDS: THIAMINE HCL 100 MG TABLET (FP) PO SCH (22:58)
[2020-04-08] MEDS: OLANZapine 10 MG TABLET PO SCH (22:59)
[2020-04-09] MEDS ORDERED: chlordiazePOXIDE HCL 10 MG CAPSULE PO PRN
[2020-04-09] MEDS: LACTULOSE 20 GM/30 ML UDC (FOR ORAL USE ONLY) PO SCH ×4 (00:49→18:06)
[2020-04-09] MEDS ORDERED: chlordiazePOXIDE HCL 10 MG CAPSULE PO SCH (05:00)
[2020-04-09] MEDS: PHENYTOIN NA EXTENDED 100 MG CAPSULE (FP) PO SCH ×2 (06:17→14:09)
[2020-04-09] MEDS: LORazepam 0.5 MG TABLET PO SCH ×3 (06:18→18:06)
--- NOTE | 2020-04-09 09:19 | PN ---
S CIWA - CIWA Score Nausea/Vomitin-Mild Nausea/No Vomiting Muscle Tremors: 2 Anxiety: 1-Mildly Anxious Agitation: 1-Slight > Activity Paroxysmal Sweats: No Perspiration Orientation: 0-Oriented Tacttile Disturbances: 0-None Auditory Disturbances: 0-None Visual Disturbances: 0-None Headache: 1-Very Mild CIWA-Ar Total Score: 6 [facility] Progress Note (SOAP) Subjective: alert,irritable,anxious,interrupted sleep,aching pain,ambulation on the unit with cane Objective: 04/09/20 11:12 Vital Signs Temperature 98.0 F 04/09/20 06:51 Pulse Rate 78 04/09/20 06:51 Respiratory Rate 18 04/09/20 06:51 Blood Pressure 123/73 04/09/20 06:51 O2 Sat by Pulse Oximetry (%) 99 04/09/20 06:51 04/09/20 11:13 Laboratory Results - last 24 hr 04/08/20 04/09/20 04/09/20 07:35 07:25 07:25 AST ALT Ammonia 58.20 H Phenytoin 5.4 14.5 04/09/20 07:25 AST 74 H ALT 159 H Ammonia Phenytoin Assessment: 04/09/20 11:14 withdrawal symptom Plan: continue detox ativan regimen,seizure precaution,continue dilantin 100 mgs po tid,continue lactulose 20 grams po q 6hrs, discharge in am to rehab
[2020-04-09] MEDS: PRENATAL VITAMINS W/ FOLIC ACID TABLET (FP) PO SCH (09:59)
[2020-04-09] MEDS: CITALOPRAM HYDROBROMIDE 20 MG TABLET PO SCH (10:00)
[2020-04-09] MEDS: METHADONE HCL 10 MG TABLET PO SCH (10:00)
[2020-04-09] MEDS: NICOTINE 21 MG/24 HOURS TOPICAL PATCH TD SCH (10:00)
[2020-04-09] MEDS: EMTRICITABINE 200MG/TENOFOVIR 300MG PO SCH (10:01)
[2020-04-09 10:58] LABS: SGOT/AST 74 U/L (15-37); SGPT/ALT 159 U/L (13-61)
[2020-04-09] MEDS: NICOTINE POLACRILEX 2 MG GUM BUC PRN (13:18)
--- NOTE | 2020-04-09 17:36 | PN ---
[facility] Progress Note Note: Wants to go home. Will not say anything else about reasons for leaving. HR: 96/RR Lungs CTA Abd S/NT/BS+ Alert and oriented. Gait steady. Vital Signs - 24 hr 04/08/20 04/09/20 04/09/20 20:16 06:51 13:41 Temperature 98.4 F 98.0 F 97.3 F L Pulse Rate 99 H 78 96 H Respiratory 18 18 18 Rate Blood Pressure 116/79 123/73 114/84 O2 Sat by Pulse 98 99 98 Plan: Encouraged to f/u w/ PCP Oximetry (%) Plan: Encouraged to f/u w/ PCP for medication evaluations. [facility] does not have a infectious disease provider and has been using 's Truvada. Discussed the importance of knowing HIV status, blood levels and which medication is best to use. States will go see a specialist. Hx seizures encouraged compliance w/ dilantin and encouraged f/u w/ HCP. Encouraged f/u w/ MH Provider. Patient discharged early, at own request.
--- NOTE | 2020-04-09 17:38 | DS ---
[facility] Detox Discharge Summary Admission Date: 04/06/20 Discharge Date: 04/09/20 - History Present History: Alcohol Dependence, Cannabis Dependence, Cocaine Dependence, MMTP Additional Comments: Admitted w/ alcohol withdrawal symptoms. Hx: JASS/THC/. On MMTP. Nicotine Pertinent Past History: PMH: Hep C treated, Epilepsy and noncompliant with Dilantin. MHx: Bipolar - Physical Exam Results Vital Signs: Vital Signs Temperature 97.3 F L 04/09/20 13:41 Pulse Rate 96 H 04/09/20 13:41 Respiratory Rate 18 04/09/20 13:41 Blood Pressure 114/84 04/09/20 13:41 O2 Sat by Pulse Oximetry (%) 98 04/09/20 13:41 Pertinent Admission Physical Exam Findings: TOLERATED DETOX. Laboratory Last Values WBC 5.5 K/mm3 (4.0-10.0) 04/06/20 12:55 RBC 3.25 M/mm3 (4.00-5.60) L 04/06/20 12:55 Hgb 10.1 GM/dL (11.7-16.9) L 04/06/20 12:55 Hct 29.7 % (35.4-49) L 04/06/20 12:55 MCV 91.5 fl (80-96) 04/06/20 12:55 MCH 31.1 pg (25.7-33.7) 04/06/20 12:55 MCHC 34.0 g/dl (32.0-35.9) 04/06/20 12:55 RDW 17.3 % (11.9-15.9) H 04/06/20 12:55 Plt Count 351 K/MM3 (134-434) D 04/06/20 12:55 MPV 8.9 fl (7.5-11.1) 04/06/20 12:55 Sodium 140 mmol/L (136-145) 04/06/20 12:55 Potassium 3.7 mmol/L (3.5-5.1) 04/06/20 12:55 Chloride 106 mmol/L (98-107) 04/06/20 12:55 Carbon Dioxide 28 mmol/L (21-32) 04/06/20 12:55 Anion Gap 6 MMOL/L (8-16) L 04/06/20 12:55 BUN 21.5 mg/dL (7-18) H 04/06/20 12:55 Creatinine 1.1 mg/dL (0.55-1.3) 04/06/20 12:55 Est GFR (CKD-EPI)AfAm 89.61 04/06/20 12:55 Est GFR (CKD-EPI)NonAf 77.32 04/06/20 12:55 Random Glucose 141 mg/dL (74-106) H 04/06/20 12:55 Calcium 9.1 mg/dL (8.5-10.1) 04/06/20 12:55 Total Bilirubin 0.6 mg/dL (0.2-1) 04/06/20 12:55 AST 74 U/L (15-37) H 04/09/20 07:25 ALT 159 U/L (13-61) H 04/09/20 07:25 Alkaline Phosphatase 105 U/L (45-117) 04/06/20 12:55 Ammonia 58.20 umol/L (11-32) H 04/09/20 07:25 Total Protein 7.4 g/dl (6.4-8.2) 04/06/20 12:55 Albumin 3.5 g/dl (3.4-5.0) 04/06/20 12:55 Phenytoin 14.5 04/09/20 07:25 Syphilis Serology Non-reactive (NONREACTIVE) 04/06/20 12:55 COVID-19 (TRISH) Not detected (Not Detected) 04/06/20 14:00 Sent to [facility] for evaluation of two seizyres while in detox. Labs reviewed. Medications reviewed. - Treatment Hospital Course: Detox Protocol Followed, Discharged Condition Good (Lungs CTA Abd S/NT/BS+ Alert and oriented. Gait steady.) - Medication Discharge Medications: Ambulatory Orders Emtricitabine/Tenofovir [Truvada -] 1 tab PO DAILY 11/05/18 Methadone [Dolophine -] 30 mg PO DAILY 11/05/18 Citalopram Hydrobromide [Celexa -] 20 mg PO DAILY 11/29/19 Albuterol Sulfate Inhaler - [Ventolin HFA Inhaler -] 2 inh PO Q4H PRN #1 inhaler 01/13/20 Lactulose (Oral Use) [Cephulac -] 20 gm PO TID #1 udc 01/13/20 Olanzapine [Zyprexa] 20 mg PO HS 04/06/20 - Diagnosis (1) Cannabis dependence Status: Chronic (2) Heroin abuse Status: Chronic (3) History of hepatitis C Status: Chronic (4) Methadone maintenance therapy patient Status: Chronic (5) Nicotine dependence Status: Chronic Qualifiers: Nicotine product type: cigarettes Substance use status: uncomplicated Qu alified Code(s): F17.210 - Nicotine dependence, cigarettes, uncomplicated (6) Seizure disorder Status: Chronic (7) Alcohol dependence with uncomplicated withdrawal Status: Acute - AMA Did Patient Leave Against Medical Advice: No
[2020-04-09 18:30] VITALS: BP 122/74; PULSE 53; TEMP 96.4
[2020-04-10] MEDS ORDERED: LORazepam 0.5 MG TABLET PO PRN
[2020-04-10] MEDS ORDERED: LORazepam 0.5 MG TABLET PO ONE (05:00)
[2020-04-10] MEDS ORDERED: chlordiazePOXIDE HCL 10 MG CAPSULE PO SCH (05:00)
[2020-04-11] MEDS ORDERED: chlordiazePOXIDE HCL 10 MG CAPSULE PO ONE (05:00)
== END 2020-04-09 19:10 | disposition home or self-care (01) | DRG 773 ==
LOC: YASAS 11:21 → Y3N 13:27
PROVIDERS: ADMIT Allergy & Immunology; ATTEND Allergy & Immunology
PROC: HZ2ZZZZ Detoxification Services for Substance Abuse Treatment (ICD-10-PCS; principal; 2020-04-06)
DX: F10.230 Alcohol dependence with withdrawal, uncomplicated (principal); F14.20 Cocaine dependence, uncomplicated; F11.20 Opioid dependence, uncomplicated; F12.20 Cannabis dependence, uncomplicated; F17.210 Nicotine dependence, cigarettes, uncomplicated; F25.9 Schizoaffective disorder, unspecified; F31.9 Bipolar disorder, unspecified; Z21 Asymptomatic human immunodeficiency virus [HIV] infection status; G40.909 Epilepsy, unspecified, not intractable, without status epilepticus; J45.909 Unspecified asthma, uncomplicated; Z62.810 Personal history of physical and sexual abuse in childhood; R74.8 Abnormal levels of other serum enzymes; M54.5 Low back pain; G89.29 Other chronic pain; R63.4 Abnormal weight loss; Z68.23 Body mass index [BMI] 23.0-23.9, adult; Z91.14 Patient's other noncompliance with medication regimen; Z98.890 Other specified postprocedural states; Z88.0 Allergy status to penicillin; Z56.0 Unemployment, unspecified; Z59.0 Homelessness; Z99.89 Dependence on other enabling machines and devices
CPT/HCPCS: 36415; 80053; 80185; 82140; 84450; 84460; 85027; 86780; 93005; 93010; C9803; U0003

== ENCOUNTER 2020-04-07 15:57 | Emergency (ER) | payer OTHER ==
[2020-04-07 16:16] VITALS: BP 121/78; PULSE 90; TEMP 98; BMI 23.6
--- OUTSIDE RECORDS SUMMARY | 2020-04-07 16:16 | XMS ---
:1970 Author Organization [facility] Support Name Relationship Address Phone UE, UNEMPLOYED Unavailable Unavailable Unavailable UE Unavailable Unavailable Unavailable ISECUSHAUNNA GASTON [address] [place] [address] IRRIZARRZORAN Telles BROTHER [address] [place] [address] IRRZORAN CROFT Brother [address] [place] [address] rocha, zoran Unavailable Unavailable Unavailable Re-disclosure Warning [...] is protected by Article 27-F of the [facility] Public Health law. If you continue you may haveaccess to information: Regarding HIV / AIDS; Provided by facilities licensed or operated by the [facility] Office of Mental Health; or Provided by the [facility] Office for People With Developmental Disabilities. If such information is present, then the following [facility] mandated warning applies: This information has been [...] law may result in a fine or custodial sentence or both. A general authorization for the release of medical or other information is NOT sufficient authorization for further disclosure. Encounters Encounter Providers Location Date Indications Data Source(s ) Outpatient [facility] 05/02/2019 eCW3 ([facility] 12:00:00 AM [facility] - [facility]) 05/02/2019 12:00:00 AM EST Outpatient [facility] 04/04/2019 eCW3 ([facility] 12:00:00 [facility] EDT - Care) 04/04/2019 12:00:00 AM EDT (DentTx) Dental [facility] 03/21/2019 eCW3 ([facility]28 12:00:00 AM [facility] EDT - Care) 03/21/2019 12:00:00 AM EDT Outpatient [facility] 03/07/2019 eCW3 ([facility] 12:00:00 AM [facility] EDT - Care) 03/07/2019 12:00:00 AM EDT (DentTx) Dental [facility] 02/09/2019 eCW3 ([facility]28 12:00:00 AM [facility] EDT - Care) 02/09/2019 12:00:00 AM EDT Outpatient [facility] 02/07/2019 eCW3 [facility] 12:[facility]:00 [facility] EDT - Care) 02/07/2019 12:00:00 AM EDT Immunizations Vaccine Date Status Description Data Source(s) Tdap 03/12/2020 completed eCW3 ([facility] 12:38:00 PM EDT Health Care) Pneumococcal conjugate 03/12/2020 completed eCW3 ([facility] PCV 13 12:37:00 PM EDT Health Care) Medications Medication Brand Start Product Dose Route Administrative Pharmacy [facility] Indications Reaction Description Data Name [...] e CW3 Ultra-Light or 2020 Ultra-Light ( [place] - Ultra- 12:00: - [facility] Light 00 [...] n Tablet 600 MG 12:00: [facility] AM [facility] EDT Care) Ibuprofen Ibupro 09/08/ active Ibuprofen eCW3 600 MG Oral fen 2018 600 MG ([place] [facility] Tablet 600 MG 12:00: [facility] EDT Care) Lidocaine Lidoca 09/08/ active [...] MG ([place] [facility] Tablet 600 MG 12:00: [facility] EDT Care) Ibuprofen Ibupro 09/08/ active Ibuprofen eCW3 600 MG Oral fen 2018 600 MG ([place] [facility] Tablet 600 MG 12:00: [facility] EDT Care) Ibuprofen Ibupro 09/08/ active Ibuprofen eCW3 600 MG Oral fen 2018 600 MG ([place] Tablet 600 MG 12:00: [facility] EDT Care) Ibuprofen Ibupro 09/08/ active Ibuprofen eCW3 600 MG Oral fen 2018 600 MG ([place] [facility] Tablet 600 MG 12:00: [facility] EDT Care) Lidocaine Lidoca 09/08/ active Lidocaine -Pr eCW3 25 MG/ML / ine-Pr 2018 ilocaine ([facility] Prilocaine ilocai 12:00: 2.5-2.5 % [facility] 25 MG/ML ne 00 AM Health Topical 2.5-2. 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 03/12/2020 eCW3 ([place] 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 12:00:00 AM [facility] therapy patient therapy patient Care ) F17.200 Tobacco use Tobacco use Problem 03/12/2020 eCW3 ([place] disorder disorder 12:00:00 AM [facility] Care) 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 01/25/2020 eCW3 ([place] esophageal esophageal 12:00:00 AM [facility] 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 Care ) bleeding bleeding K74.60 Unspecified Unspecified Problem 01/25/2020 eCW3 ([place] cirrhosis of cirrhosis of 12:00:00 AM [facility] liver Care) 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 01/25/2020 eCW3 ([place] esophageal esophageal 12:00:00 AM [facility] 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 Care ) bleeding bleeding K74.60 Unspecified Unspecified Problem 01/25/2020 eCW3 ([place] cirrhosis of cirrhosis of 12:00:00 AM [facility] liver Care) G89.29 Other chronic Other chronic Problem 09/19/2019 eCW3 ([facility] pain pain 12:00:00 AM [facility] Care) G89.29 Other chronic Other chronic Problem 09/19/2019 eCW3 ([facility] pain pain 12:00:00 AM [facility] Care) Results ID Date Data Source [id number] 03/22/2020 12:26:00 AM EDT [facility] Name Value Range Interpretation Code Description Data Vanessa rce(s) Supporting Document(s ) SARS-CoV-2 [facility] RNA Resp Ql TRISH+probe This lab was ordered by [place] and evelyn ren by [facility]. ID Date Data Source [id number] 12/31/2019 02:30:00 PM EDT [facility] Name Value Range Interpretation Description Data Sup porting Code Source(s) Document(s ) SARS [facility] coronavirus 2 RNA This lab was ordered by [facility] and reported by [facility]. ID Date Data Source [id number] 11/26/2019 03:00:00 PM EDT [facility] Name Value Range Interpretation Description Data Sup porting Code Source(s) Document(s ) SARS [facility] CORONAVIRUS 2 RNA This lab was ordered by [facility] and reported by [facility]. Procedure Social History [...] Diastolic blood 68 mm[Hg] 68 mm[Hg] eCW3 ([facility]) Systolic blood 106 mm[Hg] 106 mm[Hg] eCW3 ([facility]) Heart rate 16 /min 16 /min eCW3 ([facility]) Body mass index 23.48 kg/m2 23.48 kg/m2 eCW3 ([facility] (BMI) [Ratio] [facility]) Body weight 159 [lb_av] 159 [lb_av] eCW3 ([facility]) Body height [in_i] eCW3 ([facility]) Diastolic blood 72 mm[Hg] 72 mm[Hg] eCW3 ([facility]) Systolic blood 109 mm[Hg] 109 mm[Hg] eCW3 ([facility]) Heart rate 16 /min 16 /min eCW3 ([facility]) Body mass index 22.30 kg/m2 22.30 kg/m2 eCW3 ([facility] (BMI) [Ratio] [facility]) Body weight 151 [lb_av] 151 [lb_av] eCW3 ([facility]) Body height [in_i] eCW3 ([facility]) Diastolic blood 79 mm[Hg] 79 mm[Hg] eCW3 ([facility]) Systolic blood 111 mm[Hg] 111 mm[Hg] eCW3 ([facility]) Heart rate 16 /min 16 /min eCW3 ([facility]) Body mass index 21.56 kg/m2 21.56 kg/m2 eCW3 ([facility] (BMI) [Ratio] [facility]) Body weight 146 [lb_av] 146 [lb_av] eCW3 ([facility]) Body height [in_i] eCW3 ([facility]) Patient Treatment Plan of Care Planned Activity Planned Date Details Description Data Source (s) tizanidine 4 MG Oral 09/24/2017 12:00:00 eCW3 ([facility]) tizanidine 4 MG Oral 09/24/2017 12:00:00 eCW3 ([place] Tablet [facility]) Ibuprofen 600 MG Oral 09/08/2017 12:00:00 eCW3 ([place] [facility] Tablet [facility]) Lidocaine 25 MG/ML / 09/08/2017 12:00:00 eCW3 ([place] Prilocaine 25 MG/ML [facility] are) Topical Cream Ibuprofen 600 MG Oral 09/08/2017 12:00:00 eCW3 ([place] [facility] Tablet [facility]) Lidocaine 25 MG/ML / 09/08/2017 12:00:00 eCW3 ([place] [facility] Prilocaine 25 MG/ML [facility] are) Topical Cream
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
[2020-04-07] MEDS ORDERED: PHENYTOIN NA EXTENDED 100 MG CAPSULE (FP) PO ONE (17:33)
[2020-04-07] MEDS ORDERED: PHENYTOIN NA EXTENDED 100 MG CAPSULE (FP) ONE (17:41)
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
== END 2020-04-07 19:25 | disposition home or self-care (01) ==
LOC: JER 15:57
DX: G40.89 Other seizures (principal); F11.10 Opioid abuse, uncomplicated
CPT/HCPCS: 82962; 99283-25

== ENCOUNTER 2020-04-10 11:18 | Inpatient (IN) | payer OTHER ==
--- OUTSIDE RECORDS SUMMARY | 2020-04-10 11:21 | XMS ---
:1970 Author Organization [facility] Support Name Relationship Address Phone UE, UNEMPLOYED Unavailable Unavailable Unavailable UE Unavailable Unavailable Unavailable ISECUSHAUNNA GASTON [address] [phone] [place] [address] IRRIZARRZORAN Telles BROTHER [address] [place] [address] IRRZORAN CROFT Brother [address] [place] [address] rocha, zoran Unavailable Unavailable Unavailable Re-disclosure Warning [...] is protected by Article 27-F of the [facility] Public Health law. If you continue you may haveaccess to information: Regarding HIV / AIDS; Provided by facilities licensed or operated by the [facility] Office of Mental Health; or Provided by the [facility] Office for People With Developmental Disabilities. If such information is present, then the following [facility] mandated warning applies: This information has [...] law may result in a fine or long term sentence or both. A general authorization for the release of medical or other information is NOT sufficient authorization for further disclosure. Encounters Encounter Providers Location Date Indications Data Source(s ) Outpatient [facility] 05/02/2019 eCW3 ([facility] 12:00:00 [facility] - [facility]) 05/02/2019 12:00:00 AM EST Outpatient [facility] 04/04/2019 eCW3 ([facility] 12:00:00 [facility] EDT - [facility]) 04/04/2019 12:00:00 AM EDT ([facility]) Dental [facility] 03/21/2019 eCW3 ([facility] A28 12:00:00 [facility] EDT - [facility]) 03/21/2019 12:00:00 AM EDT Outpatient [facility] 03/07/2019 eCW3 ([facility] 12:[facility]:00 [facility]T - [facility]) 03/07/2019 12:00:00 AM EDT Immunizations Vaccine Date Status Description Data Source(s) Tdap 03/12/2020 completed eCW3 ([facility] 12:38:00 PM EDT [facility] Care) Pneumococcal conjugate 03/12/2020 completed eCW3 ([facility] PCV 13 12:37:00 PM EDT Health Care) Medications Medication Brand Start Product Dose Route Administrative Pharmacy [facility] Indications Reaction Description Data Name Date Form [...] Tizanidi ne eCW3 4 MG Oral dine 2017 {tabl HCl 4 MG ([facility] Tablet HCl 4 12:00: et_as [facility] Tizanidine MG 00 AM _need Health HCl 4 MG EDT ed} Care) tizanidine Tizani .0 active Tizanidi ne eCW3 4 MG Oral dine 2017 {tabl HCl 4 MG ([facility] Tablet HCl 4 12:00: et_as [facility] Tizanidine MG 00 AM _[facility] Health HCl 4 MG EDT ed} Care) tizanidine Tizani .0 active Tizanidi ne eCW3 4 MG Oral dine 2017 {tabl HCl 4 MG ([facility] Tablet [...] ([facility] 600 MG 12:00: [facility] 00 AM Health EDT Care) Ibuprofen Ibupro 09/08/ active Ibuprofen eCW3 600 MG Oral fen 2018 600 MG ([facility]t 600 MG 12:00: [facility] 00 AM Health EDT Care) Lidocaine Lidoca 09/08/ active [...] ([facility] 600 MG 12:00: [facility] 00 AM Health EDT Care) Ibuprofen Ibupro 09/08/ active Ibuprofen eCW3 600 MG Oral fen 2018 600 MG ([facility] 600 MG 12:00: [facility] 00 AM Health EDT Care) Ibuprofen Ibupro 09/08/ active Ibuprofen eCW3 600 MG Oral fen 2018 600 MG ([facility]t 600 MG 12:00: [facility] 00 AM Health EDT Care) Ibuprofen Ibupro 09/08/ active Ibuprofen eCW3 600 MG Oral fen 2018 600 MG ([facility]t 600 MG 12:00: [facility] 00 AM Health EDT Care) Lidocaine Lidoca 09/08/ active Lidocaine -Pr eCW3 25 MG/ML / ine-Pr 2017 ilocaine ([facility] Prilocaine ilocai 12:00: 2.5-2.5 % [facility] 25 MG/ML ne 00 AM Health Topical 2.5-2. EDT Care) Cream 5 % Lidocaine-P rilocaine 2.5-2.5 % Insurance Providers Payer name Policy type Policy ID Covered Covered republican's Policy P juanpablo / Coverage republican ID relationship to Guan Inf ormation type guan [facility] [id number] SP [id number] [facility] [id number] SP [id number] FIRST Problems, Conditions, and Diagnoses Code Display Name Description Problem Type Effective Dates Data Source(s) 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 03/12/2020 eCW3 ([facility] 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 12:00:00 AM [facility] therapy patient therapy patient Care ) F17.200 Tobacco use Tobacco use Problem 03/12/2020 eCW3 ([facility] disorder disorder 12:00:00 AM [facility] Care) 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 01/25/2020 eCW3 ([facility] esophageal esophageal 12:00:00 AM [facility] 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 Care ) bleeding bleeding K74.60 Unspecified Unspecified Problem 01/25/2020 eCW3 ([facility] cirrhosis of cirrhosis of 12:00:00 AM [facility]) 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 01/25/2020 eCW3 ([facility] esophageal esophageal 12:00:00 AM [facility] 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 Care ) bleeding bleeding K74.60 Unspecified Unspecified Problem 01/25/2020 eCW3 ([facility] cirrhosis of cirrhosis of 12:00:00 AM [facility]) G89.29 Other chronic Other chronic Problem 09/19/2019 eCW3 ([facility] pain pain 12:00:00 AM [facility] Care) G89.29 Other chronic Other chronic Problem 09/19/2019 eCW3 ([facility] pain pain 12:00:00 AM [facility] Care) Results ID Date Data Source [id number] 04/06/2020 02:00:00 PM EDT [facility] Name Value Range Interpretation Description Data Sup porting Code Source(s) Document(s ) SARS [facility] coronavirus 2 RNA This lab was ordered by [facility] ct Bill Inter and reported by [facility]. ID Date Data Source [id number] 03/22/2020 12:26:00 AM EDT [facility] Name Value Range Interpretation Code Description Data Vanessa rce(s) Supporting Document(s ) SARS-CoV-2 [facility] RNA Resp Ql TRISH+probe This lab was ordered by [place] and evelyn ren by [facility]. ID Date Data Source [id number] 12/31/2019 02:30:00 PM EDT [facility] Name Value Range Interpretation Description Data Sup porting Code Source(s) Document(s ) SARS [facility] coronavirus 2 RNA This lab was ordered by [facility] Lavell Stanton and reported by [facility]. ID Date Data Source [id number] 11/26/2019 03:00:00 PM EDT [facility] Name Value Range Interpretation Description Data Sup porting Code Source(s) Document(s ) SARS [facility] CORONAVIRUS 2 RNA This lab was ordered by [facility] and reported by [facility]. Procedure Social History [...] Diastolic blood 68 mm[Hg] 68 mm[Hg] eCW3 ([facility]) Systolic blood 106 mm[Hg] 106 mm[Hg] eCW3 ([facility]) Heart rate 16 /min 16 /min eCW3 ([facility]) Body mass index 23.48 kg/m2 23.48 kg/m2 eCW3 ([facility] (BMI) [Ratio] [facility]) Body weight 159 [lb_av] 159 [lb_av] eCW3 ([facility]) Body height [in_i] eCW3 ([facility]) Diastolic blood 72 mm[Hg] 72 mm[Hg] eCW3 ([facility]) Systolic blood 109 mm[Hg] 109 mm[Hg] eCW3 ([facility]) Heart rate 16 /min 16 /min eCW3 ([facility]) Body mass index 22.30 kg/m2 22.30 kg/m2 eCW3 ([facility] (BMI) [Ratio] [facility]) Body weight 151 [lb_av] 151 [lb_av] eCW3 ([facility]) Body height [in_i] eCW3 ([facility]) Diastolic blood 79 mm[Hg] 79 mm[Hg] eCW3 ([facility]) Systolic blood 111 mm[Hg] 111 mm[Hg] eCW3 ([facility]) Heart rate 16 /min 16 /min eCW3 ([facility]) Body mass index 21.56 kg/m2 21.56 kg/m2 eCW3 ([facility] (BMI) [Ratio] [facility]) Body weight 146 [lb_av] 146 [lb_av] eCW3 ([facility]) Body height [in_i] eCW3 ([facility]) Patient Treatment Plan of Care Planned Activity Planned Date Details Description Data Source (s) tizanidine 4 MG Oral 09/24/2017 12:00:00 eCW3 ([facility] Tablet [facility]) tizanidine 4 MG Oral 09/24/2017 12:00:00 eCW3 ([facility] Tablet [facility]) Ibuprofen 600 MG Oral 09/08/2017 12:00:00 eCW3 ([facility] Tablet AM [facility]) Lidocaine 25 MG/ML / 09/08/2017 12:00:00 eCW3 ([facility] Prilocaine 25 MG/ML [facility]) Topical Cream Ibuprofen 600 MG Oral 09/08/2017 12:00:00 eCW3 ([facility] Tablet [facility]) Lidocaine 25 MG/ML / 09/08/2017 12:00:00 eCW3 ([facility] Prilocaine 25 MG/ML [facility]) Topical Cream
--- NOTE | 2020-04-10 11:36 | BHS.RME ---
Substance Use & Tx History - Substance Use History Alcohol Substance amount: 1.5 pints vodka Frequency of use: Daily Substance route: Oral Date of Last Use: 04/05/20 (started age 11) Cocaine-Crack Substance amount: $200-300 Frequency of use: Daily Substance route: Smoking Date of Last Use: 04/05/20 (started age 17) Physical/Psych/Mental Status - Behavior General Behavior: Increased activity (restlessness, agitation) Eye Contact: Normal - Cooperativeness Cooperativeness: Cooperative - Thinking Thought Processes: Tight, Logical, Goal Directed - Physical Health Problems Is patient presently having any pain?: No Does patient presently have any injuries (include location): No Does patient currently have a fever: No Is patient : No CIWA Nausea/Vomitin-No Nausea/No Vomiting Muscle Tremors: None Anxiety: 0-No Anxiety, at Ease Agitation: 0-Normal Activity Paroxysmal Sweats: No Perspiration Orientation: 0-Oriented Tacttile Disturbances: 0-None Auditory Disturbances: 0-None Visual Disturbances: 0-None Headache: 0-None Present CIWA-Ar Total Score: 0
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
[2020-04-10 15:30] VITALS: BMI 24.2
[2020-04-10] MEDS ORDERED: MAG HYDROX/AL HYDROX/SIMETH 30 ML UNIT-DOSE CUP PO PRN (15:30)
[2020-04-10] MEDS ORDERED: MAGNESIUM CITRATE 300 ML BOTTLE PO PRN (15:30)
[2020-04-10] MEDS ORDERED: guaiFENesin 200 MG/10 ML 10 ML UNIT-DOSE CUPS PO PRN (15:30)
[2020-04-10] MEDS ORDERED: P-EPHED 60MG/TRIPROLIDI 2.5MG TABLET PO PRN (15:30)
[2020-04-10] MEDS ORDERED: LOPERAMIDE HCL 2 MG CAPSULE PO PRN (15:30)
[2020-04-10] MEDS ORDERED: NICOTINE POLACRILEX 2 MG GUM BC PRN (15:30)
[2020-04-10] MEDS ORDERED: IBUPROFEN 400 MG TABLET (FP) PO PRN (15:30)
[2020-04-10] MEDS ORDERED: MAGNESIUM HYDROX 2400MG/30ML ORAL SUSPENSION 30 ML CUP PO PRN (15:30)
[2020-04-10] MEDS ORDERED: ACETAMINOPHEN 325 MG TABLET (FP) PO PRN (15:30)
[2020-04-10] MEDS ORDERED: ALBUTEROL SO4 HFA INHALER IH PRN (15:32)
--- OUTSIDE RECORDS SUMMARY | 2020-04-10 16:42 | XMS ---
:1970 Author Organization [facility] Support Name Relationship Address Phone UE, UNEMPLOYED Unavailable Unavailable Unavailable UE Unavailable Unavailable Unavailable ISECUSHAUNNA GASTON [address] [phone] [place] [address] IRRIZARRZORAN Telles BROTHER [address] [place] [address] IRRZORAN CROTF Brother [address] [place] [address] rocha, zoran Unavailable Unavailable Unavailable Re-disclosure Warning [...] is protected by Article 27-F of the [facility] Public Health law. If you continue you may haveaccess to information: Regarding HIV / AIDS; Provided by facilities licensed or operated by the [facility] Office of Mental Health; or Provided by the [facility] Office for People With Developmental Disabilities. If such information is present, then the following [facility] mandated warning applies: This information has [...] law may result in a fine or halfway sentence or both. A general authorization for the release of medical or other information is NOT sufficient authorization for further disclosure. Encounters Encounter Providers Location Date Indications Data Source(s ) Outpatient [facility] 05/02/2019 eCW3 ([facility] 12:00:00 [facility] - [facility]) 05/02/2019 12:00:[address] [facility] 04/04/2019 eCW3 ([facility] 12:00:00 [facility] EDT - [facility]) 04/04/2019 12:00:00 AM EDT ([facility]) Dental [facility] 03/21/2019 eCW3 ([facility] A28 12:00:00 [facility] EDT - [facility]) 03/21/2019 12:00:[address] [facility] 03/07/2019 eCW3 ([facility] 12:00:00 [facility]T - [facility]) 03/07/2019 12:00:00 AM EDT Immunizations Vaccine Date Status Description Data Source(s) Tdap 03/12/2020 completed eCW3 ([place] 12:38:00 PM EDT [facility] Care) Pneumococcal conjugate 03/12/2020 completed eCW3 ([place] PCV 13 12:37:00 PM EDT Health Care) Medications Medication Brand Start Product Dose Route Administrative Pharmacy [facility] Indications Reaction Description Data Name [...] relationship to Guan Inf ormation type guan [facility] [id number] SP [id number] [facility] [id number] SP [id number] [facility] Problems, Conditions, and Diagnoses Code Display Name Description Problem Type Effective Dates Data Source(s) 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 03/12/2020 eCW3 ([place] 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 12:00:00 AM [facility] therapy patient therapy patient Care ) F17.200 Tobacco use Tobacco use Problem 03/12/2020 eCW3 ([place] disorder disorder 12:00:00 AM [facility] Care) 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 01/25/2020 eCW3 ([place] esophageal esophageal 12:00:00 AM [facility] 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 Care ) bleeding bleeding K74.60 Unspecified Unspecified Problem 01/25/2020 eCW3 ([place] cirrhosis of cirrhosis of 12:00:00 AM [facility]) 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 01/25/2020 eCW3 ([place] esophageal esophageal 12:00:00 AM [facility] 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 Care ) bleeding bleeding K74.60 Unspecified Unspecified Problem 01/25/2020 eCW3 ([place] cirrhosis of cirrhosis of 12:00:00 AM [facility]) G89.29 Other chronic Other chronic Problem 09/19/2019 eCW3 ([facility] pain pain 12:00:00 AM [facility] Care) G89.29 Other chronic Other chronic Problem 09/19/2019 eCW3 ([facility] pain pain 12:00:00 AM [facility] Care) Results ID Date Data Source [id number] 04/06/2020 02:00:00 PM EDT [facility] Name Value Range Interpretation Description Data Sup porting Code Source(s) Document(s ) SARS [facility] coronavirus 2 RNA This lab was ordered by [facility] ct Bill Inter and reported by [facility]. ID Date Data Source [id number] 03/22/2020 12:26:00 AM EDT [facility] Name Value Range Interpretation Code Description Data Vanessa rce(s) Supporting Document(s ) SARS-CoV-2 [facility] RNA Resp Ql TRISH+probe This lab was ordered by [place] and evelyn ren by [facility]. ID Date Data Source [id number] 12/31/2019 02:30:00 PM EDT [facility] Name Value Range Interpretation Description Data Sup porting Code Source(s) Document(s ) SARS [facility] coronavirus 2 RNA This lab was ordered by [facility] Lavell Stanton and reported by [facility]. ID Date Data Source [id number] 11/26/2019 03:00:00 PM EDT [facility] Name Value Range Interpretation Description Data Sup porting Code Source(s) Document(s ) SARS [facility] CORONAVIRUS 2 RNA This lab was ordered by [facility] and reported by [facility]. Procedure Social [...] Systolic blood 106 mm[Hg] 106 mm[Hg] eCW3 ([facility]) Heart rate 16 /min 16 /min eCW3 ([facility]) Body mass index 23.48 kg/m2 23.48 kg/m2 eCW3 ([facility] Body weight 159 [lb_av] 159 [lb_av] eCW3 ([facility]) Body height [in_i] eCW3 ([facility]) Diastolic blood 72 mm[Hg] 72 mm[Hg] eCW3 ([facility]) Systolic blood 109 mm[Hg] 109 mm[Hg] eCW3 ([facility]) Heart rate 16 /min 16 /min eCW3 ([facility]) Body mass index 22.30 kg/m2 22.30 kg/m2 eCW3 ([facility] ([facility]) Body weight 151 [lb_av] 151 [lb_av] eCW3 ([facility]) Body height [in_i] eCW3 ([facility]) Diastolic blood 79 mm[Hg] 79 mm[Hg] eCW3 ([facility]) Systolic blood 111 mm[Hg] 111 mm[Hg] eCW3 ([facility]) Heart rate 16 /min 16 /min eCW3 ([facility]) Body mass index 21.56 kg/m2 21.56 kg/m2 eCW3 ([facility] ([facility]) Body weight 146 [lb_av] 146 [lb_av] eCW3 ([facility]) Body height [in_i] eCW3 ([facility]) Patient Treatment Plan of Care Planned Activity Planned Date Details Description Data Source (s) tizanidine 4 MG Oral 09/24/2017 12:00:00 eCW3 ([facility]) tizanidine 4 MG Oral 09/24/2017 12:00:00 eCW3 ([facility]) Ibuprofen 600 MG Oral 09/08/2017 12:00:00 eCW3 ([place] Tablet AM [facility]) Lidocaine 25 MG/ML / 09/08/2017 12:00:00 eCW3 ([place] Prilocaine 25 MG/ML Replaced by [facility]) Topical Cream Ibuprofen 600 MG Oral 09/08/2017 12:00:00 eCW3 ([place] [facility]) Lidocaine 25 MG/ML / 09/08/2017 12:00:00 eCW3 ([place] Prilocaine 25 MG/ML Replaced by [facility]) Topical Cream
[2020-04-10 17:13] LABS: ALBUMIN 3.8 g/dl (3.4-5.0); BILIRUBIN,TOTAL 0.6 mg/dL (0.2-1); BLOOD UREA NITROGEN 12.1 mg/dL (7-18); CALCIUM 10.1 mg/dL (8.5-10.1); POTASSIUM 4.6 mmol/L (3.5-5.1); TOT PROT 8.5 g/dl (6.4-8.2)
[2020-04-10 17:18] LABS: HEMATOCRIT 35.1 % (35.4-49); HEMOGLOBIN 11.9 GM/dL (11.7-16.9); MCH 31.5 pg (25.7-33.7); MCHC 33.8 g/dl (32.0-35.9); MEAN CELL VOLUME 93.1 fl (80-96); MEAN PLT VOLUME 8.9 fl (7.5-11.1); PLATELET COUNT 323 K/MM3 (134-434); RBC 3.77 M/mm3 (4.00-5.60); WHITE BLOOD COUNT 5.1 K/mm3 (4.0-10.0)
[2020-04-10] MEDS: PRENATAL VITAMINS W/ FOLIC ACID TABLET (FP) PO SCH (17:39)
[2020-04-10 18:14] LABS: SICKLE CELL SCREEN NEGATIVE (NEGATIVE)
[2020-04-10] MEDS: NICOTINE 7 MG/24 HOURS TOPICAL PATCH TD SCH (18:30)
[2020-04-10] MEDS: hydrOXYzine PAMOATE 25 MG CAPSULE (FP) PO SCH ×2 (18:30→21:32)
[2020-04-10] MEDS: MELATONIN 5 MG TABLETS PO SCH (21:31)
[2020-04-10] MEDS: THIAMINE HCL 100 MG TABLET (FP) PO SCH (21:32)
[2020-04-10] MEDS: OLANZapine 10 MG TABLET PO SCH (21:32)
[2020-04-11] MEDS: hydrOXYzine PAMOATE 25 MG CAPSULE (FP) PO SCH ×5 (06:56→21:07)
[2020-04-11] MEDS ORDERED: METHADONE HCL 10 MG TABLET PO SCH (08:45)
[2020-04-11] MEDS ORDERED: METHADONE HCL 40 MG DISPERSABLE TABLET PO SCH (10:00)
[2020-04-11] MEDS: CITALOPRAM HYDROBROMIDE 20 MG TABLET PO SCH (10:07)
[2020-04-11] MEDS: PRENATAL VITAMINS W/ FOLIC ACID TABLET (FP) PO SCH (10:07)
[2020-04-11] MEDS: NICOTINE 7 MG/24 HOURS TOPICAL PATCH TD SCH (10:09)
[2020-04-11] MEDS: EMTRICITABINE 200MG/TENOFOVIR 300MG PO SCH (10:45)
--- NOTE | 2020-04-11 14:15 | PN ---
[facility] Progress Note (SOAP) Subjective: patient requesting to increase his Methadone to 80mg/daily. He states that was his daily dose. I called his program and talked to Dr. Alonso, who reviewed his chart and stated that he was started at 30mg on 03/26, was lost to care, then returned, put on [address] Alonso stated that is was alright to progress his dose to 80mg. Objective: General: No apparent distress HEENTM: normocephlaic, PERRLA, EOMI Neck: supple Resp: unlabored, Cardiac: s1 s2 ABD: +BS MSK: full weight bearing, steady gait Neuro: CN 2-12 intact, oriented x 4. No cognitive deficits noted. 04/11/20 14:11 04/11/20 14:15 Vital Signs Period Temp Pulse Resp BP Sys/Méndez Pulse Ox Last 24 Hr 97.7 F-98.0 F 81-89 16-18 123-143/83-90 98-99 Assessment: substance use disorder, on MMTP 04/11/20 14:13 Plan: Dr. Saenz recommended and that his methadone be increased by 10 mg for 2 days (tomorrow, methadone 40mg, Thursday, Methadone 50mg), then increased by 5mg every 3 days (Thursday 55mg) until he is at 80mg. Patient was informed of plan.
[2020-04-11 18:05] LABS: PH,URINE 8.5 (5.0-8.0); URINE APPEARANCE CLOUDY; URINE BILIRUBIN NEGATIVE (NEGATIVE); URINE COLOR YELLOW; URINE GLUCOSE (UA) NEGATIVE (NEGATIVE); URINE KETONE NEGATIVE (NEGATIVE); URINE LEUK ESTERASE NEGATIVE (NEGATIVE); URINE NITRITE NEGATIVE (NEGATIVE); URINE PROTEIN NEGATIVE (NEGATIVE)
[2020-04-11] MEDS: OLANZapine 10 MG TABLET PO SCH (21:06)
[2020-04-11] MEDS: THIAMINE HCL 100 MG TABLET (FP) PO SCH (21:06)
[2020-04-11] MEDS: MELATONIN 5 MG TABLETS PO SCH (21:06)
[2020-04-12] MEDS ORDERED: METHADONE HCL 40 MG DISPERSABLE TABLET PO SCH (06:00)
[2020-04-12] MEDS: hydrOXYzine PAMOATE 25 MG CAPSULE (FP) PO SCH ×5 (06:40→21:38)
[2020-04-12] MEDS: NICOTINE 7 MG/24 HOURS TOPICAL PATCH TD SCH (10:13)
[2020-04-12] MEDS: CITALOPRAM HYDROBROMIDE 20 MG TABLET PO SCH (10:13)
[2020-04-12] MEDS: EMTRICITABINE 200MG/TENOFOVIR 300MG PO SCH (10:13)
[2020-04-12] MEDS: PRENATAL VITAMINS W/ FOLIC ACID TABLET (FP) PO SCH (10:13)
[2020-04-12] MEDS: PHENYTOIN NA EXTENDED 100 MG CAPSULE (FP) PO SCH ×3 (10:14→21:37)
[2020-04-12] MEDS: MELATONIN 5 MG TABLETS PO SCH (21:36)
[2020-04-12] MEDS: OLANZapine 10 MG TABLET PO SCH (21:37)
[2020-04-12] MEDS: THIAMINE HCL 100 MG TABLET (FP) PO SCH (21:38)
[2020-04-13] MEDS ORDERED: METHADONE HCL 40 MG DISPERSABLE TABLET ONE (05:20)
[2020-04-13] MEDS ORDERED: METHADONE HCL 10 MG TABLET ONE (05:20)
[2020-04-13] MEDS ORDERED: METHADONE HCL 40 MG DISPERSABLE TABLET PO SCH ×2 (06:00)
[2020-04-13] MEDS: METHADONE 40 MG, METHADONE 10 MG PO SCH (06:05)
[2020-04-13] MEDS: hydrOXYzine PAMOATE 25 MG CAPSULE (FP) PO SCH ×5 (06:05→21:12)
[2020-04-13] MEDS: PHENYTOIN NA EXTENDED 100 MG CAPSULE (FP) PO SCH ×3 (06:05→21:13)
[2020-04-13] MEDS ORDERED: MASKS NR ONE (07:35)
[2020-04-13] MEDS: NICOTINE 7 MG/24 HOURS TOPICAL PATCH TD SCH (10:08)
[2020-04-13] MEDS: CITALOPRAM HYDROBROMIDE 20 MG TABLET PO SCH (10:08)
[2020-04-13] MEDS: PRENATAL VITAMINS W/ FOLIC ACID TABLET (FP) PO SCH (10:08)
[2020-04-13] MEDS: EMTRICITABINE 200MG/TENOFOVIR 300MG PO SCH (10:09)
[2020-04-13] MEDS: THIAMINE HCL 100 MG TABLET (FP) PO SCH (21:12)
[2020-04-13] MEDS: MELATONIN 5 MG TABLETS PO SCH (21:12)
[2020-04-13] MEDS: OLANZapine 10 MG TABLET PO SCH (21:13)
[2020-04-14] MEDS ORDERED: METHADONE HCL 10 MG TABLET ONE (03:37)
[2020-04-14] MEDS ORDERED: METHADONE HCL 40 MG DISPERSABLE TABLET ONE (03:37)
[2020-04-14] MEDS: hydrOXYzine PAMOATE 25 MG CAPSULE (FP) PO SCH ×5 (06:17→21:17)
[2020-04-14] MEDS: PHENYTOIN NA EXTENDED 100 MG CAPSULE (FP) PO SCH ×3 (06:17→21:16)
[2020-04-14] MEDS: METHADONE 40 MG, METHADONE 10 MG PO SCH (06:17)
[2020-04-14] MEDS: PRENATAL VITAMINS W/ FOLIC ACID TABLET (FP) PO SCH (09:34)
[2020-04-14] MEDS: NICOTINE 7 MG/24 HOURS TOPICAL PATCH TD SCH (09:34)
[2020-04-14] MEDS: CITALOPRAM HYDROBROMIDE 20 MG TABLET PO SCH (09:34)
[2020-04-14] MEDS: EMTRICITABINE 200MG/TENOFOVIR 300MG PO SCH (09:34)
[2020-04-14] MEDS: THIAMINE HCL 100 MG TABLET (FP) PO SCH (21:16)
[2020-04-14] MEDS: MELATONIN 5 MG TABLETS PO SCH (21:16)
[2020-04-14] MEDS: OLANZapine 10 MG TABLET PO SCH (21:16)
[2020-04-15] MEDS ORDERED: METHADONE HCL 40 MG DISPERSABLE TABLET ONE (03:20)
[2020-04-15] MEDS ORDERED: METHADONE HCL 10 MG TABLET ONE (03:20)
[2020-04-15] MEDS: hydrOXYzine PAMOATE 25 MG CAPSULE (FP) PO SCH ×5 (06:20→21:13)
[2020-04-15] MEDS: PHENYTOIN NA EXTENDED 100 MG CAPSULE (FP) PO SCH ×3 (06:20→21:13)
[2020-04-15] MEDS: METHADONE 40 MG, METHADONE 10 MG PO SCH (06:20)
[2020-04-15] MEDS: PRENATAL VITAMINS W/ FOLIC ACID TABLET (FP) PO SCH (09:41)
[2020-04-15] MEDS: EMTRICITABINE 200MG/TENOFOVIR 300MG PO SCH (09:41)
[2020-04-15] MEDS: CITALOPRAM HYDROBROMIDE 20 MG TABLET PO SCH (09:41)
[2020-04-15] MEDS: NICOTINE 7 MG/24 HOURS TOPICAL PATCH TD SCH (09:42)
[2020-04-15] MEDS: THIAMINE HCL 100 MG TABLET (FP) PO SCH (21:13)
[2020-04-15] MEDS: OLANZapine 10 MG TABLET PO SCH (21:13)
[2020-04-15] MEDS: MELATONIN 5 MG TABLETS PO SCH (21:13)
[2020-04-16] MEDS ORDERED: METHADONE HCL 10 MG TABLET ONE (05:28)
[2020-04-16] MEDS ORDERED: METHADONE HCL 40 MG DISPERSABLE TABLET ONE (05:28)
[2020-04-16] MEDS ORDERED: METHADONE HCL 5 MG TABLET ONE (05:28)
[2020-04-16] MEDS ORDERED: METHADONE HCL 10 MG TABLET PO SCH (06:00)
[2020-04-16] MEDS: PHENYTOIN NA EXTENDED 100 MG CAPSULE (FP) PO SCH ×3 (06:16→22:02)
[2020-04-16] MEDS: hydrOXYzine PAMOATE 25 MG CAPSULE (FP) PO SCH ×5 (06:16→22:04)
[2020-04-16] MEDS: METHADONE 40 MG, METHADONE 10 MG, METHADONE 5 MG PO SCH (06:16)
[2020-04-16] MEDS ORDERED: PT OWN MED DRAWER 7, Y5N ONE (08:40)
[2020-04-16] MEDS: NICOTINE 7 MG/24 HOURS TOPICAL PATCH TD SCH (10:02)
[2020-04-16] MEDS: PRENATAL VITAMINS W/ FOLIC ACID TABLET (FP) PO SCH (10:02)
[2020-04-16] MEDS: EMTRICITABINE 200MG/TENOFOVIR 300MG PO SCH (10:02)
[2020-04-16] MEDS: CITALOPRAM HYDROBROMIDE 20 MG TABLET PO SCH (10:02)
[2020-04-16] MEDS: OLANZapine 10 MG TABLET PO SCH (22:02)
[2020-04-16] MEDS: MELATONIN 5 MG TABLETS PO SCH (22:02)
[2020-04-16] MEDS: THIAMINE HCL 100 MG TABLET (FP) PO SCH (22:05)
[2020-04-17] MEDS ORDERED: METHADONE HCL 40 MG DISPERSABLE TABLET ONE (05:28)
[2020-04-17] MEDS ORDERED: METHADONE HCL 10 MG TABLET ONE (05:29)
[2020-04-17] MEDS ORDERED: METHADONE HCL 5 MG TABLET ONE (05:29)
[2020-04-17] MEDS: hydrOXYzine PAMOATE 25 MG CAPSULE (FP) PO SCH ×3 (05:48→14:18)
[2020-04-17] MEDS: PHENYTOIN NA EXTENDED 100 MG CAPSULE (FP) PO SCH ×2 (05:48→14:18)
[2020-04-17] MEDS: METHADONE 40 MG, METHADONE 10 MG, METHADONE 5 MG PO SCH (05:48)
[2020-04-17 06:59] VITALS: BP 148/96; PULSE 80; TEMP 97.1
[2020-04-17] MEDS ORDERED: PT OWN MED DRAWER 7, Y5N ONE (08:50)
[2020-04-17] MEDS: NICOTINE 7 MG/24 HOURS TOPICAL PATCH TD SCH (10:06)
[2020-04-17] MEDS: PRENATAL VITAMINS W/ FOLIC ACID TABLET (FP) PO SCH (10:06)
[2020-04-17] MEDS: CITALOPRAM HYDROBROMIDE 20 MG TABLET PO SCH (10:06)
[2020-04-17] MEDS: EMTRICITABINE 200MG/TENOFOVIR 300MG PO SCH (10:07)
--- NOTE | 2020-04-17 11:04 | PN ---
S Progress Note Note: patient stable, titrating methadone, increased to 60mg daily starting on 04/18/20 at 6 am. Dilantin was re-started last week Period Temp Pulse Resp BP Sys/Méndez Pulse Ox Last 24 Hr 97.1 F-98.7 F 80 18 148/96 96-99 P/E: general: no apparent distress Lungs: respirations unlabored Neuro: A+O x4 MSK: Full weight bearing, full ROM A/P: MMTP: titrating methadone up to 80mg as instructed by his provider at his program. Please see previous note Seizure disorder: Dilantin level ordered for tomorrow AM.
--- NOTE | 2020-04-17 14:57 | DS ---
[facility] Rehab Discharge Summary - [facility] Rehab Discharge Summary Admission Date: 04/10/20 Discharge Date: 04/17/20 - History Present History: Alcohol dependence, Cannabis dependence, Cocaine dependence Pertinent Past History: 49 year old male with history of alcohol dependence, opioid dependence and cocaine use disorder. - Discharge Physical Exam Vital Signs: Vital Signs Temperature 97.1 F L 04/17/20 05:44 Pulse Rate 80 04/17/20 05:44 Respiratory Rate 18 04/17/20 05:44 Blood Pressure 148/96 04/17/20 05:44 O2 Sat by Pulse Oximetry (%) 96 04/17/20 14:12 Pertinent Admission Physical Exam Findings: Physical General Appearance: no apparent distress HEENTM: EOMI, Normocephalic, Respiratory: No Respiratory Distress, No Accessory Muscle Use Neck: Supple Abdominal: +Bowel Sounds, Musculoskeletal: Full weight bearing, steady gait with cane - Treatment Discharge Condition: Discharge condition good (Medically stable for discharge.), Outpatient referral accepted (Patient is scheduled to go to [facility]) Hospital Course: patient attended groups, had 1;1 with his counselor. He requested to be titrated up to his standing dose of methadone, 80mg/daily. His community provider supported the decision to titrate his methadone up to 80 mg. He is presently at 60mg now, at his request for discharge. - Medication Discharge Medications: Ambulatory Orders Methadone [Dolophine -] 30 mg PO DAILY 11/05/18 Citalopram Hydrobromide [Celexa -] 20 mg PO DAILY 11/29/19 Lactulose (Oral Use) [Cephulac -] 20 gm PO TID #1 udc 01/13/20 Olanzapine [Zyprexa] 20 mg PO HS 04/06/20 Albuterol Sulfate Inhaler - [Ventolin HFA Inhaler -] 2 inh PO Q4H PRN #1 inhaler 04/17/20 Emtricitabine/Tenofovir [Truvada -] 1 tab PO DAILY #0 tablet 04/17/20 Emtricitabine/Tenofovir [Truvada -] 1 tab PO DAILY #30 tablet 04/17/20 Phenytoin Na Extended [Dilantin -] 100 mg PO TID #90 capsule 04/17/20 - Medication-Assisted Treatment (MAT) Medication-Assisted Treatment (MAT): Yes MAT Follow-up Referral: MMTP - Discharge Instructions Diet, activity, other medical instructions: Diet: aas tolerated Activity: as tolerated Other medical instructions: Please follow up with aftercare referral - Diagnosis (1) Alcohol dependence with uncomplicated withdrawal Current Visit: No Status: Chronic (2) Cocaine use disorder, moderate, in early remission Current Visit: No Status: Chronic (3) Cannabis dependence Current Visit: No Status: Chronic - Follow-up Referral Minutes to complete discharge: 15 - AMA Did Patient Leave Against Medical Advice: No
[2020-04-18] MEDS ORDERED: METHADONE 40 MG, METHADONE 20 MG PO SCH (06:00)
[2020-04-18] MEDS ORDERED: METHADONE 40 MG, METHADONE 10 MG, METHADONE 5 MG PO SCH (06:00)
[2020-04-19] MEDS ORDERED: METHADONE 40 MG, METHADONE 20 MG PO SCH (06:00)
[2020-04-19] MEDS ORDERED: METHADONE HCL 10 MG TABLET PO SCH (06:00)
[2020-04-22] MEDS ORDERED: METHADONE HCL 10 MG TABLET PO SCH (06:00)
[2020-04-25] MEDS ORDERED: METHADONE HCL 10 MG TABLET PO SCH (06:00)
== END 2020-04-17 15:51 | disposition home or self-care (01) | DRG 772 ==
LOC: YASAS 11:18 → Y3W 16:37
PROVIDERS: ADMIT Allergy & Immunology; ATTEND Allergy & Immunology
PROC: HZ42ZZZ Group Counseling for Substance Abuse Treatment, Cognitive-Behavioral (ICD-10-PCS; principal; 2020-04-10)
DX: F10.20 Alcohol dependence, uncomplicated (principal); F14.20 Cocaine dependence, uncomplicated; F11.20 Opioid dependence, uncomplicated; F12.20 Cannabis dependence, uncomplicated; F17.210 Nicotine dependence, cigarettes, uncomplicated; F31.9 Bipolar disorder, unspecified; F20.9 Schizophrenia, unspecified; Z21 Asymptomatic human immunodeficiency virus [HIV] infection status; G40.909 Epilepsy, unspecified, not intractable, without status epilepticus; J45.909 Unspecified asthma, uncomplicated; M54.5 Low back pain; G89.29 Other chronic pain; Z86.19 Personal history of other infectious and parasitic diseases; Z87.81 Personal history of (healed) traumatic fracture; Z98.890 Other specified postprocedural states; Z59.0 Homelessness; Z88.0 Allergy status to penicillin
CPT/HCPCS: 36415; 80053; 81003; 85027; 85660; 86780; C9803; U0003

== ENCOUNTER 2020-10-05 13:06 | Inpatient (IN) | payer OTHER ==
[2020-10-05 21:27] VITALS: BMI 25.4
[2020-10-06] MEDS ORDERED: LOPERAMIDE HCL 2 MG CAPSULE PO PRN (00:24)
[2020-10-06] MEDS ORDERED: P-EPHED 60MG/TRIPROLIDI 2.5MG TABLET PO PRN (00:24)
[2020-10-06] MEDS ORDERED: MAGNESIUM HYDROX 2400MG/30ML ORAL SUSPENSION 30 ML CUP PO PRN (00:24)
[2020-10-06] MEDS ORDERED: MAGNESIUM CITRATE 300 ML BOTTLE PO PRN (00:24)
[2020-10-06] MEDS ORDERED: guaiFENesin 200 MG/10 ML 10 ML UNIT-DOSE CUPS PO PRN (00:24)
[2020-10-06] MEDS ORDERED: ACETAMINOPHEN 325 MG TABLET (FP) PO PRN (00:24)
[2020-10-06] MEDS ORDERED: NICOTINE POLACRILEX 2 MG GUM BUC PRN (00:24)
[2020-10-06] MEDS ORDERED: MAG HYDROX/AL HYDROX/SIMETH 30 ML UNIT-DOSE CUP PO PRN (00:24)
[2020-10-06] MEDS ORDERED: IBUPROFEN 400 MG TABLET (FP) PO PRN (00:24)
[2020-10-06] MEDS ORDERED: METHADONE 40 MG, METHADONE 30 MG, METHADONE 5 MG PO ONE (09:45)
[2020-10-06] MEDS ORDERED: METHADONE HCL 5 MG TABLET (FOR DETOX USE ONLY) PO SCH (10:00)
[2020-10-06] MEDS ORDERED: METHADONE HCL 10 MG TABLET ONE (10:06)
[2020-10-06] MEDS ORDERED: METHADONE HCL 5 MG TABLET ONE (10:06)
[2020-10-06] MEDS ORDERED: METHADONE HCL 40 MG DISPERSABLE TABLET ONE (10:07)
[2020-10-06] MEDS: NICOTINE 21 MG/24 HOURS TOPICAL PATCH TD SCH (10:16)
[2020-10-06] MEDS: PRENATAL VITAMINS W/ FOLIC ACID TABLET (FP) PO SCH (10:16)
[2020-10-06 13:24] LABS: HEMOGLOBIN 11.7 GM/dL (11.7-16.9); MCH 32.3 pg (25.7-33.7); MCHC 33.4 g/dl (32.0-35.9); MEAN CELL VOLUME 96.9 fl (80-96); PLATELET COUNT 248 K/MM3 (134-434); RBC 3.61 M/mm3 (4.00-5.60); RDW 13.3 % (11.9-15.9); WHITE BLOOD COUNT 3.4 K/mm3 (4.0-10.0)
[2020-10-06 13:42] LABS: BLOOD UREA NITROGEN 12.2 mg/dL (7-18); CALCIUM 9.2 mg/dL (8.5-10.1)
[2020-10-06 13:44] LABS: ALBUMIN 3.2 g/dl (3.4-5.0)
[2020-10-06 13:45] LABS: BILIRUBIN,TOTAL 0.5 mg/dL (0.2-1); TOT PROT 6.3 g/dl (6.4-8.2)
[2020-10-06 13:46] LABS: CREATININE 0.9 mg/dL (0.55-1.3)
[2020-10-06 14:33] LABS: EPI CELLS 11 /uL (0-25.1); HYALINE CASTS 2 /uL (0-3.1); PH,URINE 7.5 (5.0-8.0); URINE APPEARANCE TURBID; URINE BACTERIA 16 /uL (0-1359); URINE BILIRUBIN 1+ (NEGATIVE); URINE COLOR DK YELLOW; URINE GLUCOSE (UA) NEGATIVE (NEGATIVE); URINE KETONE TRACE (NEGATIVE); URINE LEUK ESTERASE 1+ (NEGATIVE); URINE NITRITE NEGATIVE (NEGATIVE); URINE PROTEIN TRACE (NEGATIVE); URINE RBC 41 /uL (0-23.9); URINE UROBILINOGEN 4.0 E.U/dl mg/dL (0.2-1.0); URINE WBC 55 /uL (0-25.8)
[2020-10-06] MEDS: THIAMINE HCL 100 MG TABLET (FP) PO SCH (21:23)
[2020-10-06] MEDS: MELATONIN 5 MG TABLETS PO SCH (21:23)
[2020-10-07] MEDS ORDERED: METHADONE HCL 5 MG TABLET ONE (06:42)
[2020-10-07] MEDS ORDERED: METHADONE HCL 40 MG DISPERSABLE TABLET ONE (06:42)
[2020-10-07] MEDS ORDERED: METHADONE HCL 10 MG TABLET ONE (06:42)
[2020-10-07] MEDS: METHADONE 40 MG, METHADONE 30 MG, METHADONE 5 MG PO SCH (06:47)
[2020-10-07] MEDS: NICOTINE 21 MG/24 HOURS TOPICAL PATCH TD SCH (09:45)
[2020-10-07] MEDS: PRENATAL VITAMINS W/ FOLIC ACID TABLET (FP) PO SCH (09:45)
[2020-10-07] MEDS: CITALOPRAM HYDROBROMIDE 20 MG TABLET PO SCH (10:11)
[2020-10-07] MEDS: MELATONIN 5 MG TABLETS PO SCH (21:13)
[2020-10-07] MEDS: THIAMINE HCL 100 MG TABLET (FP) PO SCH (21:13)
[2020-10-07] MEDS: OLANZapine 10 MG TABLET PO SCH (21:14)
[2020-10-08] MEDS ORDERED: METHADONE HCL 5 MG TABLET ONE (05:21)
[2020-10-08] MEDS ORDERED: METHADONE HCL 40 MG DISPERSABLE TABLET ONE (05:22)
[2020-10-08] MEDS ORDERED: METHADONE HCL 10 MG TABLET ONE (05:22)
[2020-10-08] MEDS: METHADONE 40 MG, METHADONE 30 MG, METHADONE 5 MG PO SCH (06:41)
[2020-10-08] MEDS: CITALOPRAM HYDROBROMIDE 20 MG TABLET PO SCH (09:40)
[2020-10-08] MEDS: PRENATAL VITAMINS W/ FOLIC ACID TABLET (FP) PO SCH (09:41)
[2020-10-08] MEDS: NICOTINE 21 MG/24 HOURS TOPICAL PATCH TD SCH (09:41)
[2020-10-08] MEDS: THIAMINE HCL 100 MG TABLET (FP) PO SCH (21:19)
[2020-10-08] MEDS: OLANZapine 10 MG TABLET PO SCH (21:19)
[2020-10-08] MEDS: MELATONIN 5 MG TABLETS PO SCH (21:19)
[2020-10-09] MEDS ORDERED: METHADONE HCL 5 MG TABLET ONE (03:24)
[2020-10-09] MEDS ORDERED: METHADONE HCL 10 MG TABLET ONE (03:24)
[2020-10-09] MEDS ORDERED: METHADONE HCL 40 MG DISPERSABLE TABLET ONE (03:25)
[2020-10-09] MEDS: METHADONE 40 MG, METHADONE 30 MG, METHADONE 5 MG PO SCH (06:31)
[2020-10-09] MEDS: NICOTINE 21 MG/24 HOURS TOPICAL PATCH TD SCH (09:52)
[2020-10-09] MEDS: PRENATAL VITAMINS W/ FOLIC ACID TABLET (FP) PO SCH (09:52)
[2020-10-09] MEDS: CITALOPRAM HYDROBROMIDE 20 MG TABLET PO SCH (09:52)
[2020-10-09] MEDS: THIAMINE HCL 100 MG TABLET (FP) PO SCH (21:03)
[2020-10-09] MEDS: MELATONIN 5 MG TABLETS PO SCH (21:03)
[2020-10-09] MEDS: OLANZapine 10 MG TABLET PO SCH (21:03)
[2020-10-10] MEDS ORDERED: METHADONE HCL 10 MG TABLET ONE (03:20)
[2020-10-10] MEDS ORDERED: METHADONE HCL 40 MG DISPERSABLE TABLET ONE (03:20)
[2020-10-10] MEDS ORDERED: METHADONE HCL 5 MG TABLET ONE (03:20)
[2020-10-10 06:06] LABS: SARS-CoV-2 NAA Not Detected (Not Detected)
[2020-10-10] MEDS: METHADONE 40 MG, METHADONE 30 MG, METHADONE 5 MG PO SCH (06:33)
[2020-10-10] MEDS ORDERED: PT OWN MED DRAWER 7, Y5N ONE (08:42)
[2020-10-10] MEDS: PRENATAL VITAMINS W/ FOLIC ACID TABLET (FP) PO SCH (09:24)
[2020-10-10] MEDS: NICOTINE 21 MG/24 HOURS TOPICAL PATCH TD SCH (09:24)
[2020-10-10] MEDS: CITALOPRAM HYDROBROMIDE 20 MG TABLET PO SCH (09:24)
[2020-10-10] MEDS: THIAMINE HCL 100 MG TABLET (FP) PO SCH (21:02)
[2020-10-10] MEDS: OLANZapine 10 MG TABLET PO SCH (21:02)
[2020-10-10] MEDS: MELATONIN 5 MG TABLETS PO SCH (21:03)
[2020-10-11] MEDS ORDERED: METHADONE HCL 10 MG TABLET ONE (03:20)
[2020-10-11] MEDS ORDERED: METHADONE HCL 40 MG DISPERSABLE TABLET ONE (03:20)
[2020-10-11] MEDS ORDERED: METHADONE HCL 5 MG TABLET ONE (03:20)
[2020-10-11] MEDS: METHADONE 40 MG, METHADONE 30 MG, METHADONE 5 MG PO SCH (06:14)
[2020-10-11] MEDS ORDERED: PT OWN MED DRAWER 7, Y5N ONE (08:33)
[2020-10-11] MEDS: PRENATAL VITAMINS W/ FOLIC ACID TABLET (FP) PO SCH (09:26)
[2020-10-11] MEDS: CITALOPRAM HYDROBROMIDE 20 MG TABLET PO SCH (09:26)
[2020-10-11] MEDS: NICOTINE 21 MG/24 HOURS TOPICAL PATCH TD SCH (09:26)
[2020-10-11] MEDS ORDERED: ALBUTEROL SO4 HFA INHALER IH ONE (11:13)
[2020-10-11] MEDS: ALBUTEROL SO4 HFA INHALER IH PRN (11:55)
[2020-10-11] MEDS ORDERED: ALBUTEROL SO4 HFA INHALER IH PRN (15:51)
[2020-10-11] MEDS: OLANZapine 10 MG TABLET PO SCH (21:05)
[2020-10-11] MEDS: THIAMINE HCL 100 MG TABLET (FP) PO SCH (21:05)
[2020-10-11] MEDS: MELATONIN 5 MG TABLETS PO SCH (21:05)
[2020-10-12] MEDS: ALBUTEROL SO4 HFA INHALER IH PRN ×2 (00:59→08:12)
[2020-10-12] MEDS ORDERED: METHADONE HCL 40 MG DISPERSABLE TABLET ONE (03:32)
[2020-10-12] MEDS ORDERED: METHADONE HCL 5 MG TABLET ONE (03:32)
[2020-10-12] MEDS ORDERED: METHADONE HCL 10 MG TABLET ONE (03:32)
[2020-10-12] MEDS: METHADONE 40 MG, METHADONE 30 MG, METHADONE 5 MG PO SCH (06:09)
[2020-10-12] MEDS: PRENATAL VITAMINS W/ FOLIC ACID TABLET (FP) PO SCH (09:30)
[2020-10-12] MEDS: CITALOPRAM HYDROBROMIDE 20 MG TABLET PO SCH (09:31)
[2020-10-12] MEDS: NICOTINE 21 MG/24 HOURS TOPICAL PATCH TD SCH (09:31)
[2020-10-12] MEDS: OLANZapine 10 MG TABLET PO SCH (21:22)
[2020-10-12] MEDS: MELATONIN 5 MG TABLETS PO SCH (21:22)
[2020-10-12] MEDS: THIAMINE HCL 100 MG TABLET (FP) PO SCH (21:22)
[2020-10-13] MEDS ORDERED: METHADONE HCL 40 MG DISPERSABLE TABLET ONE (06:12)
[2020-10-13] MEDS ORDERED: METHADONE HCL 5 MG TABLET ONE (06:12)
[2020-10-13] MEDS ORDERED: METHADONE HCL 10 MG TABLET ONE (06:12)
[2020-10-13] MEDS: METHADONE 40 MG, METHADONE 30 MG, METHADONE 5 MG PO SCH (06:21)
[2020-10-13] MEDS ORDERED: PT OWN MED DRAWER 7, Y5N ONE (07:56)
[2020-10-13] MEDS: CITALOPRAM HYDROBROMIDE 20 MG TABLET PO SCH (09:32)
[2020-10-13] MEDS: PRENATAL VITAMINS W/ FOLIC ACID TABLET (FP) PO SCH (09:32)
[2020-10-13] MEDS: NICOTINE 21 MG/24 HOURS TOPICAL PATCH TD SCH (09:32)
[2020-10-13] MEDS: ALBUTEROL SO4 HFA INHALER IH PRN (10:12)
[2020-10-13] MEDS: OLANZapine 10 MG TABLET PO SCH (21:00)
[2020-10-13] MEDS: THIAMINE HCL 100 MG TABLET (FP) PO SCH (21:01)
[2020-10-13] MEDS: MELATONIN 5 MG TABLETS PO SCH (21:01)
[2020-10-14] MEDS ORDERED: METHADONE HCL 5 MG TABLET ONE (03:10)
[2020-10-14] MEDS ORDERED: METHADONE HCL 10 MG TABLET ONE (03:10)
[2020-10-14] MEDS ORDERED: METHADONE HCL 40 MG DISPERSABLE TABLET ONE (03:10)
[2020-10-14] MEDS: METHADONE 40 MG, METHADONE 30 MG, METHADONE 5 MG PO SCH (06:21)
[2020-10-14 07:15] VITALS: BP 129/90; PULSE 89; TEMP 96.9
[2020-10-14] MEDS ORDERED: PT OWN MED DRAWER 7, Y5N ONE (08:01)
[2020-10-14] MEDS: NICOTINE 21 MG/24 HOURS TOPICAL PATCH TD SCH (09:25)
[2020-10-14] MEDS: PRENATAL VITAMINS W/ FOLIC ACID TABLET (FP) PO SCH (09:26)
[2020-10-14] MEDS: CITALOPRAM HYDROBROMIDE 20 MG TABLET PO SCH (09:26)
== END 2020-10-14 10:50 | disposition home or self-care (01) | DRG 772 ==
LOC: YASAS 13:06 → Y3E 21:54
PROVIDERS: ADMIT Allergy & Immunology; ATTEND Allergy & Immunology
PROC: HZ42ZZZ Group Counseling for Substance Abuse Treatment, Cognitive-Behavioral (ICD-10-PCS; principal; 2020-10-05)
DX: F10.230 Alcohol dependence with withdrawal, uncomplicated (principal); F11.20 Opioid dependence, uncomplicated; F14.20 Cocaine dependence, uncomplicated; F17.210 Nicotine dependence, cigarettes, uncomplicated; F25.0 Schizoaffective disorder, bipolar type; F31.9 Bipolar disorder, unspecified; Z21 Asymptomatic human immunodeficiency virus [HIV] infection status; G40.909 Epilepsy, unspecified, not intractable, without status epilepticus; M54.5 Low back pain; G89.29 Other chronic pain; Z62.810 Personal history of physical and sexual abuse in childhood; Z56.0 Unemployment, unspecified; Z59.0 Homelessness
CPT/HCPCS: 36415; 80053; 81003; 85027; 86780; C9803; U0003; U0005

== ENCOUNTER 2020-11-23 18:02 | Inpatient (IN) | payer OTHER ==
[2020-11-23] MEDS ORDERED: NICOTINE POLACRILEX 2 MG GUM BUC PRN (20:33)
[2020-11-23] MEDS ORDERED: IBUPROFEN 400 MG TABLET (FP) PO PRN (20:33)
[2020-11-23] MEDS ORDERED: MAGNESIUM CITRATE 300 ML BOTTLE PO PRN (20:33)
[2020-11-23] MEDS ORDERED: BISMUTH SUBSALICYLATE 524 MG/30 ML PO PRN (20:33)
[2020-11-23] MEDS ORDERED: P-EPHED 60MG/TRIPROLIDI 2.5MG TABLET PO PRN (20:33)
[2020-11-23] MEDS ORDERED: guaiFENesin 200 MG/10 ML 10 ML UNIT-DOSE CUPS PO PRN (20:33)
[2020-11-23] MEDS ORDERED: NALOXONE (NARCAN) HCL 4 MG/0.1 ML SPRAY NS PRN (20:33)
[2020-11-23] MEDS ORDERED: NALOXONE HCL 0.4 MG/ML VIAL IM PRN (20:33)
[2020-11-23] MEDS ORDERED: ONDANSETRON *ODT* 4 MG TABLET SL PRN (20:33)
[2020-11-23] MEDS ORDERED: MAGNESIUM HYDROX 2400MG/30ML ORAL SUSPENSION 30 ML CUP PO PRN (20:33)
[2020-11-23] MEDS ORDERED: MENTHOL/PHENOL 1 EACH UD MM PRN (20:33)
[2020-11-23] MEDS ORDERED: ACETAMINOPHEN 325 MG TABLET (FP) PO PRN ×2 (20:33)
[2020-11-23] MEDS ORDERED: MAG HYDROX/AL HYDROX/SIMETH 30 ML UNIT-DOSE CUP PO PRN (20:33)
[2020-11-23] MEDS ORDERED: DICYCLOMINE HCL 10 MG CAPSULE PO PRN (20:33)
[2020-11-24 01:56] VITALS: BMI 32.1
[2020-11-24] MEDS: MELATONIN 5 MG TABLETS PO SCH ×2 (02:41→22:46)
[2020-11-24] MEDS: THIAMINE HCL 100 MG TABLET (FP) PO SCH ×2 (02:41→22:46)
[2020-11-24] MEDS ORDERED: METHADONE HCL 10 MG TABLET PO SCH (11:30)
[2020-11-24] MEDS ORDERED: METHADONE HCL 40 MG DISPERSABLE TABLET ONE (11:48)
[2020-11-24] MEDS ORDERED: METHADONE HCL 10 MG TABLET ONE (11:48)
[2020-11-24] MEDS ORDERED: METHADONE HCL 5 MG TABLET ONE (11:49)
[2020-11-24] MEDS: METHADONE 40 MG, METHADONE 30 MG, METHADONE 5 MG PO SCH (11:50)
[2020-11-24] MEDS: PRENATAL VITAMINS W/ FOLIC ACID TABLET (FP) PO SCH (11:51)
[2020-11-24] MEDS: NICOTINE 21 MG/24 HOURS TOPICAL PATCH TD SCH (11:51)
[2020-11-24] MEDS: OLANZapine 10 MG TABLET PO SCH (22:46)
[2020-11-25] MEDS ORDERED: METHADONE HCL 10 MG TABLET ONE (03:46)
[2020-11-25] MEDS ORDERED: METHADONE HCL 5 MG TABLET ONE (03:47)
[2020-11-25] MEDS ORDERED: METHADONE HCL 40 MG DISPERSABLE TABLET ONE (03:47)
[2020-11-25] MEDS: METHADONE 40 MG, METHADONE 30 MG, METHADONE 5 MG PO SCH (06:59)
[2020-11-25] MEDS: CITALOPRAM HYDROBROMIDE 10 MG TABLET PO SCH (10:49)
[2020-11-25] MEDS: PRENATAL VITAMINS W/ FOLIC ACID TABLET (FP) PO SCH (10:49)
[2020-11-25] MEDS: NICOTINE 21 MG/24 HOURS TOPICAL PATCH TD SCH (10:51)
[2020-11-25] MEDS: OLANZapine 10 MG TABLET PO SCH (23:14)
[2020-11-25] MEDS: THIAMINE HCL 100 MG TABLET (FP) PO SCH (23:14)
[2020-11-25] MEDS: MELATONIN 5 MG TABLETS PO SCH (23:15)
[2020-11-26] MEDS ORDERED: METHADONE HCL 40 MG DISPERSABLE TABLET ONE (04:27)
[2020-11-26] MEDS ORDERED: METHADONE HCL 10 MG TABLET ONE (04:27)
[2020-11-26] MEDS ORDERED: METHADONE HCL 5 MG TABLET ONE (04:28)
[2020-11-26] MEDS: METHADONE 40 MG, METHADONE 30 MG, METHADONE 5 MG PO SCH (06:33)
[2020-11-26] MEDS: NICOTINE 21 MG/24 HOURS TOPICAL PATCH TD SCH (10:46)
[2020-11-26] MEDS: METHOCARBAMOL 500 MG TABLET PO PRN (10:46)
[2020-11-26] MEDS: CITALOPRAM HYDROBROMIDE 10 MG TABLET PO SCH (10:46)
[2020-11-26] MEDS: PRENATAL VITAMINS W/ FOLIC ACID TABLET (FP) PO SCH (10:46)
[2020-11-26] MEDS: OLANZapine 10 MG TABLET PO SCH (21:46)
[2020-11-26] MEDS: MELATONIN 5 MG TABLETS PO SCH (21:46)
[2020-11-26] MEDS: THIAMINE HCL 100 MG TABLET (FP) PO SCH (21:46)
[2020-11-27] MEDS ORDERED: METHADONE HCL 40 MG DISPERSABLE TABLET ONE (03:28)
[2020-11-27] MEDS ORDERED: METHADONE HCL 5 MG TABLET ONE (03:28)
[2020-11-27] MEDS ORDERED: METHADONE HCL 10 MG TABLET ONE (03:28)
[2020-11-27] MEDS: METHADONE 40 MG, METHADONE 30 MG, METHADONE 5 MG PO SCH (05:52)
[2020-11-27] MEDS: hydrOXYzine PAMOATE 25 MG CAPSULE (FP) PO PRN (05:55)
[2020-11-27] MEDS: METHOCARBAMOL 500 MG TABLET PO PRN (05:55)
[2020-11-27] MEDS: PRENATAL VITAMINS W/ FOLIC ACID TABLET (FP) PO SCH (10:49)
[2020-11-27] MEDS: CITALOPRAM HYDROBROMIDE 10 MG TABLET PO SCH (10:49)
[2020-11-27] MEDS: NICOTINE 21 MG/24 HOURS TOPICAL PATCH TD SCH (10:50)
[2020-11-27 11:34] LABS: ALBUMIN 3.1 g/dl (3.4-5.0); BLOOD UREA NITROGEN 12.2 mg/dL (7-18); CALCIUM 9.3 mg/dL (8.5-10.1)
[2020-11-27 11:39] LABS: BILIRUBIN,TOTAL 0.4 mg/dL (0.2-1); TOT PROT 6.5 g/dl (6.4-8.2)
[2020-11-27] MEDS: THIAMINE HCL 100 MG TABLET (FP) PO SCH (22:12)
[2020-11-27] MEDS: MELATONIN 5 MG TABLETS PO SCH (22:12)
[2020-11-27] MEDS: OLANZapine 10 MG TABLET PO SCH (22:13)
[2020-11-28] MEDS ORDERED: METHADONE HCL 10 MG TABLET ONE (04:32)
[2020-11-28] MEDS ORDERED: METHADONE HCL 40 MG DISPERSABLE TABLET ONE (04:32)
[2020-11-28] MEDS ORDERED: METHADONE HCL 5 MG TABLET ONE (04:32)
[2020-11-28 06:09] LABS: SARS-CoV-2 NAA Not Detected (Not Detected)
[2020-11-28] MEDS: METHADONE 40 MG, METHADONE 30 MG, METHADONE 5 MG PO SCH (06:23)
[2020-11-28] MEDS: NICOTINE 21 MG/24 HOURS TOPICAL PATCH TD SCH (09:38)
[2020-11-28] MEDS: PRENATAL VITAMINS W/ FOLIC ACID TABLET (FP) PO SCH (09:38)
[2020-11-28] MEDS: CITALOPRAM HYDROBROMIDE 10 MG TABLET PO SCH (09:38)
[2020-11-28] MEDS: OLANZapine 10 MG TABLET PO SCH (22:18)
[2020-11-28] MEDS: THIAMINE HCL 100 MG TABLET (FP) PO SCH (22:18)
[2020-11-28] MEDS: MELATONIN 5 MG TABLETS PO SCH (22:18)
[2020-11-28] MEDS: METHOCARBAMOL 500 MG TABLET PO PRN (22:18)
[2020-11-28] MEDS: hydrOXYzine PAMOATE 25 MG CAPSULE (FP) PO PRN (22:18)
[2020-11-29] MEDS ORDERED: METHADONE HCL 40 MG DISPERSABLE TABLET ONE (04:19)
[2020-11-29] MEDS ORDERED: METHADONE HCL 10 MG TABLET ONE (04:19)
[2020-11-29] MEDS ORDERED: METHADONE HCL 5 MG TABLET ONE (04:20)
[2020-11-29] MEDS: METHADONE 40 MG, METHADONE 30 MG, METHADONE 5 MG PO SCH (06:13)
[2020-11-29 09:25] VITALS: BP 127/79; PULSE 102; TEMP 96.9
[2020-11-29] MEDS: PRENATAL VITAMINS W/ FOLIC ACID TABLET (FP) PO SCH (09:46)
[2020-11-29] MEDS: CITALOPRAM HYDROBROMIDE 10 MG TABLET PO SCH (09:46)
[2020-11-29] MEDS: NICOTINE 21 MG/24 HOURS TOPICAL PATCH TD SCH (09:48)
== END 2020-11-29 10:21 | disposition home or self-care (01) | DRG 773 ==
LOC: YASAS 18:02 → Y3N 11-24 00:56 → UNDOADMIN 11-24 00:56
PROVIDERS: ADMIT Allergy & Immunology; ATTEND Allergy & Immunology
PROC: HZ2ZZZZ Detoxification Services for Substance Abuse Treatment (ICD-10-PCS; principal; 2020-11-24)
DX: F10.230 Alcohol dependence with withdrawal, uncomplicated (principal); F11.20 Opioid dependence, uncomplicated; F14.20 Cocaine dependence, uncomplicated; F12.20 Cannabis dependence, uncomplicated; F17.210 Nicotine dependence, cigarettes, uncomplicated; F25.0 Schizoaffective disorder, bipolar type; F19.24 Other psychoactive substance dependence with psychoactive substance-induced mood disorder; U07.1 COVID-19; J45.909 Unspecified asthma, uncomplicated; B18.2 Chronic viral hepatitis C; M54.5 Low back pain; G89.29 Other chronic pain; Z62.810 Personal history of physical and sexual abuse in childhood; Z56.0 Unemployment, unspecified; Z59.0 Homelessness; Z88.0 Allergy status to penicillin
CPT/HCPCS: 36415; 80053; 86780; C9803; U0003; U0005

== ENCOUNTER 2021-01-04 14:06 | Inpatient (IN) | payer OTHER ==
[2021-01-04 14:59] VITALS: BMI 25.8
[2021-01-04] MEDS ORDERED: NICOTINE POLACRILEX 2 MG GUM BUC PRN (16:26)
[2021-01-04] MEDS ORDERED: BISMUTH SUBSALICYLATE 524 MG/30 ML PO PRN (16:26)
[2021-01-04] MEDS ORDERED: IBUPROFEN 400 MG TABLET (FP) PO PRN (16:26)
[2021-01-04] MEDS ORDERED: MAGNESIUM CITRATE 300 ML BOTTLE PO PRN (16:26)
[2021-01-04] MEDS ORDERED: LORazepam 1 MG TABLET PO PRN (16:26)
[2021-01-04] MEDS ORDERED: ACETAMINOPHEN 325 MG TABLET (FP) PO PRN ×2 (16:26)
[2021-01-04] MEDS ORDERED: ONDANSETRON *ODT* 4 MG TABLET SL PRN (16:26)
[2021-01-04] MEDS ORDERED: MAG HYDROX/AL HYDROX/SIMETH 30 ML UNIT-DOSE CUP PO PRN (16:26)
[2021-01-04] MEDS ORDERED: MENTHOL/PHENOL 1 EACH UD MM PRN (16:26)
[2021-01-04] MEDS ORDERED: MAGNESIUM HYDROX 2400MG/30ML ORAL SUSPENSION 30 ML CUP PO PRN (16:26)
[2021-01-04] MEDS ORDERED: ALBUTEROL SO4 HFA INHALER IH PRN (16:30)
[2021-01-04] MEDS: PRENATAL VITAMINS W/ FOLIC ACID TABLET (FP) PO SCH (17:53)
[2021-01-04] MEDS: NICOTINE 21 MG/24 HOURS TOPICAL PATCH TD SCH (17:53)
[2021-01-04] MEDS: LORazepam 2 MG TABLET PO SCH ×2 (18:15→23:01)
[2021-01-04] MEDS: hydrOXYzine PAMOATE 25 MG CAPSULE (FP) PO SCH ×2 (18:15→23:01)
[2021-01-04] MEDS: THIAMINE HCL 100 MG TABLET (FP) PO SCH (23:01)
[2021-01-04] MEDS: MELATONIN 5 MG TABLETS PO SCH (23:01)
[2021-01-05] MEDS: hydrOXYzine PAMOATE 25 MG CAPSULE (FP) PO SCH ×5 (05:37→22:19)
[2021-01-05] MEDS: LORazepam 2 MG TABLET PO SCH ×4 (05:38→22:19)
[2021-01-05] MEDS: methaDONE HCL 40 MG DISPERSABLE TABLET PO SCH ×2 (05:39→12:02)
[2021-01-05 08:55] LABS: HEMATOCRIT 36.6 % (35.4-49); HEMOGLOBIN 12.2 GM/dL (11.7-16.9); MCH 31.1 pg (25.7-33.7); MCHC 33.3 g/dl (32.0-35.9); MEAN CELL VOLUME 93.5 fl (80-96); MEAN PLT VOLUME 9.4 fl (7.5-11.1); PLATELET COUNT 235 10^3/uL (134-434); RBC 3.91 M/mm3 (4.00-5.60); RDW 14.2 % (11.9-15.9); WHITE BLOOD COUNT 4.3 K/mm3 (4.0-10.0)
[2021-01-05 09:23] LABS: CALCIUM 9.1 mg/dL (8.5-10.1)
[2021-01-05 09:24] LABS: ALBUMIN 3.2 g/dl (3.4-5.0); BLOOD UREA NITROGEN 11.9 mg/dL (7-18)
[2021-01-05 09:28] LABS: BILIRUBIN,TOTAL 0.6 mg/dL (0.2-1); TOT PROT 6.4 g/dl (6.4-8.2)
[2021-01-05] MEDS ORDERED: methaDONE HCL 40 MG DISPERSABLE TABLET PO SCH (10:00)
[2021-01-05] MEDS: PRENATAL VITAMINS W/ FOLIC ACID TABLET (FP) PO SCH (10:38)
[2021-01-05] MEDS: NICOTINE 21 MG/24 HOURS TOPICAL PATCH TD SCH (10:39)
[2021-01-05] MEDS ORDERED: OLANZapine 10 MG TABLET ONE (21:54)
[2021-01-05] MEDS ORDERED: OLANZapine 5 MG TABLET ONE (21:54)
[2021-01-05] MEDS ORDERED: OLANZapine 7.5 MG TABLET PO SCH (22:00)
[2021-01-05] MEDS: THIAMINE HCL 100 MG TABLET (FP) PO SCH (22:19)
[2021-01-05] MEDS: MELATONIN 5 MG TABLETS PO SCH (22:19)
[2021-01-05] MEDS: OLANZAPINE 10 MG, OLANZAPINE 5 MG PO SCH (22:19)
[2021-01-06] MEDS: hydrOXYzine PAMOATE 25 MG CAPSULE (FP) PO SCH ×5 (06:14→22:27)
[2021-01-06] MEDS: LORazepam 1 MG TABLET PO SCH ×4 (06:14→22:27)
[2021-01-06] MEDS ORDERED: methaDONE HCL 10 MG TABLET ONE (09:43)
[2021-01-06] MEDS ORDERED: methaDONE HCL 40 MG DISPERSABLE TABLET ONE (09:44)
[2021-01-06] MEDS: CITALOPRAM HYDROBROMIDE 10 MG TABLET PO SCH (11:03)
[2021-01-06] MEDS: NICOTINE 21 MG/24 HOURS TOPICAL PATCH TD SCH (11:04)
[2021-01-06] MEDS: PRENATAL VITAMINS W/ FOLIC ACID TABLET (FP) PO SCH (11:04)
[2021-01-06] MEDS: METHOCARBAMOL 500 MG TABLET PO PRN (13:37)
[2021-01-06] MEDS ORDERED: OLANZapine 10 MG TABLET ONE (21:29)
[2021-01-06] MEDS ORDERED: OLANZapine 5 MG TABLET ONE (21:29)
[2021-01-06] MEDS: OLANZAPINE 10 MG, OLANZAPINE 5 MG PO SCH (22:27)
[2021-01-06] MEDS: THIAMINE HCL 100 MG TABLET (FP) PO SCH (22:27)
[2021-01-06] MEDS: MELATONIN 5 MG TABLETS PO SCH (22:27)
[2021-01-07] MEDS ORDERED: LORazepam 0.5 MG TABLET PO PRN
[2021-01-07] MEDS ORDERED: methaDONE HCL 10 MG TABLET ONE (04:11)
[2021-01-07] MEDS ORDERED: methaDONE HCL 40 MG DISPERSABLE TABLET ONE (04:12)
[2021-01-07] MEDS: hydrOXYzine PAMOATE 25 MG CAPSULE (FP) PO SCH (06:05)
[2021-01-07] MEDS: LORazepam 0.5 MG TABLET PO SCH ×4 (06:05→23:34)
[2021-01-07] MEDS: METHOCARBAMOL 500 MG TABLET PO PRN (10:12)
[2021-01-07] MEDS: PRENATAL VITAMINS W/ FOLIC ACID TABLET (FP) PO SCH (10:12)
[2021-01-07] MEDS: CITALOPRAM HYDROBROMIDE 10 MG TABLET PO SCH (10:12)
[2021-01-07] MEDS: NICOTINE 21 MG/24 HOURS TOPICAL PATCH TD SCH (10:12)
[2021-01-07] MEDS ORDERED: OLANZapine 5 MG TABLET ONE (22:07)
[2021-01-07] MEDS ORDERED: OLANZapine 10 MG TABLET ONE (22:07)
[2021-01-07] MEDS: MELATONIN 5 MG TABLETS PO SCH (23:34)
[2021-01-07] MEDS: THIAMINE HCL 100 MG TABLET (FP) PO SCH (23:35)
[2021-01-07] MEDS: OLANZAPINE 10 MG, OLANZAPINE 5 MG PO SCH (23:35)
[2021-01-08] MEDS ORDERED: methaDONE HCL 10 MG TABLET ONE (04:51)
[2021-01-08] MEDS ORDERED: methaDONE HCL 40 MG DISPERSABLE TABLET ONE (04:52)
[2021-01-08] MEDS ORDERED: LORazepam 0.5 MG TABLET PO ONE (05:00)
[2021-01-08 10:01] VITALS: PULSE 92
[2021-01-08] MEDS: NICOTINE 21 MG/24 HOURS TOPICAL PATCH TD SCH (10:09)
[2021-01-08] MEDS: CITALOPRAM HYDROBROMIDE 10 MG TABLET PO SCH (10:09)
[2021-01-08] MEDS: PRENATAL VITAMINS W/ FOLIC ACID TABLET (FP) PO SCH (10:09)
[2021-01-08 14:18] VITALS: BP 115/72; TEMP 97.5
== END 2021-01-08 15:45 | disposition other institution (70) | DRG 773 ==
LOC: YASAS 14:06 → Y3N 16:39
PROVIDERS: ADMIT Allergy & Immunology; ATTEND Allergy & Immunology
PROC: HZ2ZZZZ Detoxification Services for Substance Abuse Treatment (ICD-10-PCS; principal; 2021-01-04)
DX: F10.230 Alcohol dependence with withdrawal, uncomplicated (principal); F11.20 Opioid dependence, uncomplicated; F14.20 Cocaine dependence, uncomplicated; F17.210 Nicotine dependence, cigarettes, uncomplicated; F31.9 Bipolar disorder, unspecified; F25.0 Schizoaffective disorder, bipolar type; F19.24 Other psychoactive substance dependence with psychoactive substance-induced mood disorder; G47.00 Insomnia, unspecified; E05.90 Thyrotoxicosis, unspecified without thyrotoxic crisis or storm; Z62.810 Personal history of physical and sexual abuse in childhood; M25.522 Pain in left elbow; M25.562 Pain in left knee; W19.XXXA Unspecified fall, initial encounter; Y92.238 Other place in hospital as the place of occurrence of the external cause; Y93.89 Activity, other specified; Z86.69 Personal history of other diseases of the nervous system and sense organs; Z86.19 Personal history of other infectious and parasitic diseases; Z88.0 Allergy status to penicillin
CPT/HCPCS: 36415; 80053; 85027; 86780; C9803; U0003; U0005

== ENCOUNTER 2021-01-08 15:39 | Inpatient (IN) | payer OTHER ==
[2021-01-08] MEDS ORDERED: guaiFENesin 200 MG/10 ML 10 ML UNIT-DOSE CUPS PO PRN (16:00)
[2021-01-08] MEDS ORDERED: ACETAMINOPHEN 325 MG TABLET (FP) PO PRN (16:00)
[2021-01-08] MEDS ORDERED: MAGNESIUM HYDROX 2400MG/30ML ORAL SUSPENSION 30 ML CUP PO PRN (16:00)
[2021-01-08] MEDS ORDERED: LOPERAMIDE HCL 2 MG CAPSULE PO PRN (16:00)
[2021-01-08] MEDS ORDERED: IBUPROFEN 400 MG TABLET (FP) PO PRN (16:00)
[2021-01-08] MEDS ORDERED: MAGNESIUM CITRATE 300 ML BOTTLE PO PRN (16:00)
[2021-01-08] MEDS ORDERED: MAG HYDROX/AL HYDROX/SIMETH 30 ML UNIT-DOSE CUP PO PRN (16:00)
[2021-01-08] MEDS ORDERED: P-EPHED 60MG/TRIPROLIDI 2.5MG TABLET PO PRN (16:00)
[2021-01-08] MEDS ORDERED: MENTHOL/PHENOL 1 EACH UD MM PRN (16:00)
[2021-01-08] MEDS ORDERED: ALBUTEROL SO4 HFA INHALER IH PRN (16:04)
[2021-01-08] MEDS: hydrOXYzine PAMOATE 25 MG CAPSULE (FP) PO SCH ×2 (18:59→21:59)
[2021-01-08] MEDS: THIAMINE HCL 100 MG TABLET (FP) PO SCH (21:59)
[2021-01-08] MEDS: MELATONIN 5 MG TABLETS PO SCH (21:59)
[2021-01-08] MEDS: OLANZapine 5 MG TABLET PO SCH (22:00)
[2021-01-09] MEDS ORDERED: methaDONE HCL 40 MG DISPERSABLE TABLET ONE (04:29)
[2021-01-09] MEDS ORDERED: methaDONE HCL 10 MG TABLET ONE (04:29)
[2021-01-09] MEDS ORDERED: methaDONE HCL 10 MG TABLET PO SCH (06:00)
[2021-01-09] MEDS: hydrOXYzine PAMOATE 25 MG CAPSULE (FP) PO SCH (06:38)
[2021-01-09] MEDS ORDERED: hydrOXYzine PAMOATE 25 MG CAPSULE (FP) PO PRN (09:53)
[2021-01-09] MEDS: PRENATAL VITAMINS W/ FOLIC ACID TABLET (FP) PO SCH (10:04)
[2021-01-09] MEDS: NICOTINE 7 MG/24 HOURS TOPICAL PATCH TD SCH (10:05)
[2021-01-09] MEDS: CITALOPRAM HYDROBROMIDE 20 MG TABLET PO SCH (10:05)
[2021-01-09] MEDS: LIDOCAINE 5% TOPICAL PATCH TP SCH (10:05)
[2021-01-09] MEDS: NICOTINE POLACRILEX 2 MG GUM BUC PRN (10:07)
[2021-01-09] MEDS: OLANZapine 5 MG TABLET PO SCH (21:20)
[2021-01-09] MEDS: MELATONIN 5 MG TABLETS PO SCH (21:21)
[2021-01-09] MEDS: LIDOCAINE PATCH REMOVAL MC SCH (21:21)
[2021-01-09] MEDS: METHYL SALICYLATE/MENTHOL OINT 30 GM TUBE TP SCH (21:21)
[2021-01-09] MEDS: THIAMINE HCL 100 MG TABLET (FP) PO SCH (21:21)
[2021-01-10] MEDS ORDERED: methaDONE HCL 10 MG TABLET ONE (03:02)
[2021-01-10] MEDS ORDERED: methaDONE HCL 40 MG DISPERSABLE TABLET ONE (03:02)
[2021-01-10] MEDS: PRENATAL VITAMINS W/ FOLIC ACID TABLET (FP) PO SCH (09:52)
[2021-01-10] MEDS: CITALOPRAM HYDROBROMIDE 20 MG TABLET PO SCH (09:52)
[2021-01-10] MEDS: LIDOCAINE 5% TOPICAL PATCH TP SCH (09:53)
[2021-01-10] MEDS: NICOTINE POLACRILEX 2 MG GUM BUC PRN (09:53)
[2021-01-10] MEDS: NICOTINE 7 MG/24 HOURS TOPICAL PATCH TD SCH (09:53)
[2021-01-10] MEDS: THIAMINE HCL 100 MG TABLET (FP) PO SCH (21:16)
[2021-01-10] MEDS: OLANZapine 5 MG TABLET PO SCH (21:16)
[2021-01-10] MEDS: MELATONIN 5 MG TABLETS PO SCH (21:16)
[2021-01-10] MEDS: LIDOCAINE PATCH REMOVAL MC SCH (21:17)
[2021-01-10] MEDS: METHYL SALICYLATE/MENTHOL OINT 30 GM TUBE TP SCH (21:17)
[2021-01-11] MEDS ORDERED: methaDONE HCL 40 MG DISPERSABLE TABLET ONE (03:22)
[2021-01-11] MEDS ORDERED: methaDONE HCL 10 MG TABLET ONE (03:22)
[2021-01-11] MEDS: PRENATAL VITAMINS W/ FOLIC ACID TABLET (FP) PO SCH (09:44)
[2021-01-11] MEDS: LIDOCAINE 5% TOPICAL PATCH TP SCH (09:44)
[2021-01-11] MEDS: CITALOPRAM HYDROBROMIDE 20 MG TABLET PO SCH (09:44)
[2021-01-11] MEDS: NICOTINE 7 MG/24 HOURS TOPICAL PATCH TD SCH (09:45)
[2021-01-11] MEDS: LACTULOSE 20 GM/30 ML UDC (FOR ORAL USE ONLY) PO SCH ×2 (15:04→21:42)
[2021-01-11] MEDS: LIDOCAINE PATCH REMOVAL MC SCH (21:42)
[2021-01-11] MEDS: OLANZapine 5 MG TABLET PO SCH (21:42)
[2021-01-11] MEDS: MELATONIN 5 MG TABLETS PO SCH (21:42)
[2021-01-11] MEDS: METHYL SALICYLATE/MENTHOL OINT 30 GM TUBE TP SCH (21:42)
[2021-01-11] MEDS: THIAMINE HCL 100 MG TABLET (FP) PO SCH (21:42)
[2021-01-12] MEDS ORDERED: methaDONE HCL 10 MG TABLET ONE (03:22)
[2021-01-12] MEDS ORDERED: methaDONE HCL 40 MG DISPERSABLE TABLET ONE (03:22)
[2021-01-12] MEDS: LACTULOSE 20 GM/30 ML UDC (FOR ORAL USE ONLY) PO SCH ×3 (05:57→21:12)
[2021-01-12] MEDS: CITALOPRAM HYDROBROMIDE 20 MG TABLET PO SCH (09:48)
[2021-01-12] MEDS: LIDOCAINE 5% TOPICAL PATCH TP SCH (09:48)
[2021-01-12] MEDS: PRENATAL VITAMINS W/ FOLIC ACID TABLET (FP) PO SCH (09:48)
[2021-01-12] MEDS: NICOTINE POLACRILEX 2 MG GUM BUC PRN (09:50)
[2021-01-12] MEDS: NICOTINE 7 MG/24 HOURS TOPICAL PATCH TD SCH (10:04)
[2021-01-12] MEDS: MELATONIN 5 MG TABLETS PO SCH (21:12)
[2021-01-12] MEDS: THIAMINE HCL 100 MG TABLET (FP) PO SCH (21:12)
[2021-01-12] MEDS: OLANZapine 5 MG TABLET PO SCH (21:12)
[2021-01-12] MEDS: LIDOCAINE PATCH REMOVAL MC SCH (21:14)
[2021-01-12] MEDS: METHYL SALICYLATE/MENTHOL OINT 30 GM TUBE TP SCH (21:14)
[2021-01-13] MEDS ORDERED: methaDONE HCL 10 MG TABLET ONE (03:00)
[2021-01-13] MEDS ORDERED: methaDONE HCL 40 MG DISPERSABLE TABLET ONE (03:00)
[2021-01-13] MEDS: LACTULOSE 20 GM/30 ML UDC (FOR ORAL USE ONLY) PO SCH ×3 (06:15→21:21)
[2021-01-13] MEDS: PRENATAL VITAMINS W/ FOLIC ACID TABLET (FP) PO SCH (09:29)
[2021-01-13] MEDS: CITALOPRAM HYDROBROMIDE 20 MG TABLET PO SCH (09:30)
[2021-01-13] MEDS: LIDOCAINE 5% TOPICAL PATCH TP SCH (09:30)
[2021-01-13] MEDS: NICOTINE 7 MG/24 HOURS TOPICAL PATCH TD SCH (09:31)
[2021-01-13] MEDS: OLANZapine 5 MG TABLET PO SCH (21:21)
[2021-01-13] MEDS: THIAMINE HCL 100 MG TABLET (FP) PO SCH (21:21)
[2021-01-13] MEDS: MELATONIN 5 MG TABLETS PO SCH (21:22)
[2021-01-13] MEDS: METHYL SALICYLATE/MENTHOL OINT 30 GM TUBE TP SCH (21:22)
[2021-01-13] MEDS: LIDOCAINE PATCH REMOVAL MC SCH (21:22)
[2021-01-14] MEDS ORDERED: methaDONE HCL 10 MG TABLET ONE (03:17)
[2021-01-14] MEDS ORDERED: methaDONE HCL 40 MG DISPERSABLE TABLET ONE (03:17)
[2021-01-14] MEDS: LACTULOSE 20 GM/30 ML UDC (FOR ORAL USE ONLY) PO SCH ×3 (06:12→21:21)
[2021-01-14] MEDS: PRENATAL VITAMINS W/ FOLIC ACID TABLET (FP) PO SCH (09:48)
[2021-01-14] MEDS: NICOTINE 7 MG/24 HOURS TOPICAL PATCH TD SCH (09:48)
[2021-01-14] MEDS: CITALOPRAM HYDROBROMIDE 20 MG TABLET PO SCH (09:48)
[2021-01-14] MEDS: LIDOCAINE 5% TOPICAL PATCH TP SCH (09:48)
[2021-01-14] MEDS: NICOTINE POLACRILEX 2 MG GUM BUC PRN ×2 (09:50→17:50)
[2021-01-14] MEDS: OLANZapine 5 MG TABLET PO SCH (21:22)
[2021-01-14] MEDS: THIAMINE HCL 100 MG TABLET (FP) PO SCH (21:22)
[2021-01-14] MEDS: MELATONIN 5 MG TABLETS PO SCH (21:22)
[2021-01-14] MEDS: LIDOCAINE PATCH REMOVAL MC SCH (21:22)
[2021-01-14] MEDS: METHYL SALICYLATE/MENTHOL OINT 30 GM TUBE TP SCH (21:23)
[2021-01-15] MEDS ORDERED: methaDONE HCL 40 MG DISPERSABLE TABLET ONE (03:15)
[2021-01-15] MEDS ORDERED: methaDONE HCL 10 MG TABLET ONE (03:16)
[2021-01-15] MEDS: LACTULOSE 20 GM/30 ML UDC (FOR ORAL USE ONLY) PO SCH ×3 (06:36→21:32)
[2021-01-15] MEDS: PRENATAL VITAMINS W/ FOLIC ACID TABLET (FP) PO SCH (09:42)
[2021-01-15] MEDS: CITALOPRAM HYDROBROMIDE 20 MG TABLET PO SCH (09:42)
[2021-01-15] MEDS: LIDOCAINE 5% TOPICAL PATCH TP SCH (09:43)
[2021-01-15] MEDS: NICOTINE 7 MG/24 HOURS TOPICAL PATCH TD SCH (10:09)
[2021-01-15] MEDS: THIAMINE HCL 100 MG TABLET (FP) PO SCH (21:31)
[2021-01-15] MEDS: MELATONIN 5 MG TABLETS PO SCH (21:32)
[2021-01-15] MEDS: METHYL SALICYLATE/MENTHOL OINT 30 GM TUBE TP SCH (21:32)
[2021-01-15] MEDS: LIDOCAINE PATCH REMOVAL MC SCH (21:32)
[2021-01-15] MEDS: OLANZapine 5 MG TABLET PO SCH (21:32)
[2021-01-16] MEDS ORDERED: methaDONE HCL 10 MG TABLET ONE (05:56)
[2021-01-16] MEDS ORDERED: methaDONE HCL 40 MG DISPERSABLE TABLET ONE (05:56)
[2021-01-16] MEDS: LACTULOSE 20 GM/30 ML UDC (FOR ORAL USE ONLY) PO SCH ×3 (06:01→21:11)
[2021-01-16] MEDS: NICOTINE POLACRILEX 2 MG GUM BUC PRN (08:55)
[2021-01-16] MEDS: LIDOCAINE 5% TOPICAL PATCH TP SCH (09:48)
[2021-01-16] MEDS: PRENATAL VITAMINS W/ FOLIC ACID TABLET (FP) PO SCH (09:48)
[2021-01-16] MEDS: CITALOPRAM HYDROBROMIDE 20 MG TABLET PO SCH (09:48)
[2021-01-16] MEDS: NICOTINE 7 MG/24 HOURS TOPICAL PATCH TD SCH (09:48)
[2021-01-16] MEDS: THIAMINE HCL 100 MG TABLET (FP) PO SCH (21:12)
[2021-01-16] MEDS: LIDOCAINE PATCH REMOVAL MC SCH (21:12)
[2021-01-16] MEDS: OLANZapine 5 MG TABLET PO SCH (21:12)
[2021-01-16] MEDS: MELATONIN 5 MG TABLETS PO SCH (21:12)
[2021-01-16] MEDS: METHYL SALICYLATE/MENTHOL OINT 30 GM TUBE TP SCH (21:13)
[2021-01-17] MEDS ORDERED: methaDONE HCL 40 MG DISPERSABLE TABLET ONE (03:07)
[2021-01-17] MEDS ORDERED: methaDONE HCL 10 MG TABLET ONE (03:08)
[2021-01-17] MEDS: LACTULOSE 20 GM/30 ML UDC (FOR ORAL USE ONLY) PO SCH ×3 (06:02→21:02)
[2021-01-17] MEDS: PRENATAL VITAMINS W/ FOLIC ACID TABLET (FP) PO SCH (09:54)
[2021-01-17] MEDS: LIDOCAINE 5% TOPICAL PATCH TP SCH (09:54)
[2021-01-17] MEDS: CITALOPRAM HYDROBROMIDE 20 MG TABLET PO SCH (09:54)
[2021-01-17] MEDS: NICOTINE 7 MG/24 HOURS TOPICAL PATCH TD SCH (09:54)
[2021-01-17] MEDS: NICOTINE POLACRILEX 2 MG GUM BUC PRN (09:55)
[2021-01-17] MEDS: OLANZapine 10 MG TABLET PO SCH (21:02)
[2021-01-17] MEDS: THIAMINE HCL 100 MG TABLET (FP) PO SCH (21:02)
[2021-01-17] MEDS: METHYL SALICYLATE/MENTHOL OINT 30 GM TUBE TP SCH (21:03)
[2021-01-17] MEDS: MELATONIN 5 MG TABLETS PO SCH (21:03)
[2021-01-17] MEDS: LIDOCAINE PATCH REMOVAL MC SCH (21:03)
[2021-01-18] MEDS ORDERED: methaDONE HCL 40 MG DISPERSABLE TABLET ONE (03:05)
[2021-01-18] MEDS ORDERED: methaDONE HCL 10 MG TABLET ONE (03:06)
[2021-01-18] MEDS: LACTULOSE 20 GM/30 ML UDC (FOR ORAL USE ONLY) PO SCH ×3 (06:33→21:13)
[2021-01-18] MEDS: CITALOPRAM HYDROBROMIDE 20 MG TABLET PO SCH (09:58)
[2021-01-18] MEDS: LIDOCAINE 5% TOPICAL PATCH TP SCH (09:58)
[2021-01-18] MEDS: PRENATAL VITAMINS W/ FOLIC ACID TABLET (FP) PO SCH (09:58)
[2021-01-18] MEDS: NICOTINE POLACRILEX 2 MG GUM BUC PRN (09:59)
[2021-01-18] MEDS: NICOTINE 7 MG/24 HOURS TOPICAL PATCH TD SCH (09:59)
[2021-01-18] MEDS: THIAMINE HCL 100 MG TABLET (FP) PO SCH (21:13)
[2021-01-18] MEDS: OLANZapine 10 MG TABLET PO SCH (21:13)
[2021-01-18] MEDS: MELATONIN 5 MG TABLETS PO SCH (21:13)
[2021-01-18] MEDS: LIDOCAINE PATCH REMOVAL MC SCH (21:14)
[2021-01-18] MEDS: METHYL SALICYLATE/MENTHOL OINT 30 GM TUBE TP SCH (21:31)
[2021-01-19] MEDS ORDERED: methaDONE HCL 40 MG DISPERSABLE TABLET ONE (03:38)
[2021-01-19] MEDS ORDERED: methaDONE HCL 10 MG TABLET ONE (03:39)
[2021-01-19] MEDS: LACTULOSE 20 GM/30 ML UDC (FOR ORAL USE ONLY) PO SCH ×3 (06:36→21:38)
[2021-01-19] MEDS: PRENATAL VITAMINS W/ FOLIC ACID TABLET (FP) PO SCH (09:42)
[2021-01-19] MEDS: NICOTINE 7 MG/24 HOURS TOPICAL PATCH TD SCH (09:42)
[2021-01-19] MEDS: CITALOPRAM HYDROBROMIDE 20 MG TABLET PO SCH (09:42)
[2021-01-19] MEDS: LIDOCAINE 5% TOPICAL PATCH TP SCH (09:42)
[2021-01-19] MEDS: MELATONIN 5 MG TABLETS PO SCH (21:37)
[2021-01-19] MEDS: THIAMINE HCL 100 MG TABLET (FP) PO SCH (21:37)
[2021-01-19] MEDS: OLANZapine 10 MG TABLET PO SCH (21:38)
[2021-01-19] MEDS: LIDOCAINE PATCH REMOVAL MC SCH (21:38)
[2021-01-19] MEDS: METHYL SALICYLATE/MENTHOL OINT 30 GM TUBE TP SCH (21:39)
[2021-01-20] MEDS ORDERED: methaDONE HCL 40 MG DISPERSABLE TABLET ONE (03:11)
[2021-01-20] MEDS ORDERED: methaDONE HCL 10 MG TABLET ONE (03:12)
[2021-01-20] MEDS: LACTULOSE 20 GM/30 ML UDC (FOR ORAL USE ONLY) PO SCH ×3 (06:56→21:19)
[2021-01-20] MEDS: PRENATAL VITAMINS W/ FOLIC ACID TABLET (FP) PO SCH (09:38)
[2021-01-20] MEDS: CITALOPRAM HYDROBROMIDE 20 MG TABLET PO SCH (09:38)
[2021-01-20] MEDS: NICOTINE 7 MG/24 HOURS TOPICAL PATCH TD SCH (09:39)
[2021-01-20] MEDS: LIDOCAINE 5% TOPICAL PATCH TP SCH (09:39)
[2021-01-20] MEDS: NICOTINE POLACRILEX 2 MG GUM BUC PRN (09:40)
[2021-01-20] MEDS: THIAMINE HCL 100 MG TABLET (FP) PO SCH (21:17)
[2021-01-20] MEDS: METHYL SALICYLATE/MENTHOL OINT 30 GM TUBE TP SCH (21:18)
[2021-01-20] MEDS: OLANZapine 10 MG TABLET PO SCH (21:18)
[2021-01-20] MEDS: MELATONIN 5 MG TABLETS PO SCH (21:19)
[2021-01-20] MEDS: LIDOCAINE PATCH REMOVAL MC SCH (21:19)
[2021-01-21] MEDS ORDERED: methaDONE HCL 40 MG DISPERSABLE TABLET ONE (03:11)
[2021-01-21] MEDS ORDERED: methaDONE HCL 10 MG TABLET ONE (03:11)
[2021-01-21] MEDS: LACTULOSE 20 GM/30 ML UDC (FOR ORAL USE ONLY) PO SCH ×3 (06:44→21:29)
[2021-01-21] MEDS: PRENATAL VITAMINS W/ FOLIC ACID TABLET (FP) PO SCH (10:30)
[2021-01-21] MEDS: NICOTINE 7 MG/24 HOURS TOPICAL PATCH TD SCH (10:31)
[2021-01-21] MEDS: CITALOPRAM HYDROBROMIDE 20 MG TABLET PO SCH (10:31)
[2021-01-21] MEDS: LIDOCAINE 5% TOPICAL PATCH TP SCH (13:59)
[2021-01-21] MEDS: OLANZapine 10 MG TABLET PO SCH (21:29)
[2021-01-21] MEDS: MELATONIN 5 MG TABLETS PO SCH (21:30)
[2021-01-21] MEDS: THIAMINE HCL 100 MG TABLET (FP) PO SCH (21:30)
[2021-01-21] MEDS: METHYL SALICYLATE/MENTHOL OINT 30 GM TUBE TP SCH (21:30)
[2021-01-21] MEDS: LIDOCAINE PATCH REMOVAL MC SCH (21:30)
[2021-01-22] MEDS ORDERED: methaDONE HCL 40 MG DISPERSABLE TABLET ONE (03:58)
[2021-01-22] MEDS ORDERED: methaDONE HCL 10 MG TABLET ONE (03:59)
[2021-01-22] MEDS: LACTULOSE 20 GM/30 ML UDC (FOR ORAL USE ONLY) PO SCH (06:11)
[2021-01-22 07:14] VITALS: BP 139/98; PULSE 87; TEMP 98
[2021-01-22] MEDS: CITALOPRAM HYDROBROMIDE 20 MG TABLET PO SCH (09:24)
[2021-01-22] MEDS: PRENATAL VITAMINS W/ FOLIC ACID TABLET (FP) PO SCH (09:24)
[2021-01-22] MEDS: NICOTINE 7 MG/24 HOURS TOPICAL PATCH TD SCH (09:25)
[2021-01-22] MEDS: LIDOCAINE 5% TOPICAL PATCH TP SCH (09:25)
== END 2021-01-22 09:28 | disposition home or self-care (01) | DRG 772 ==
LOC: YASAS 15:39 → Y3W 15:41
PROVIDERS: ADMIT Allergy & Immunology; ATTEND Allergy & Immunology
PROC: HZ42ZZZ Group Counseling for Substance Abuse Treatment, Cognitive-Behavioral (ICD-10-PCS; principal; 2021-01-08)
DX: F10.20 Alcohol dependence, uncomplicated (principal); F11.20 Opioid dependence, uncomplicated; F14.20 Cocaine dependence, uncomplicated; F12.20 Cannabis dependence, uncomplicated; F17.210 Nicotine dependence, cigarettes, uncomplicated; F25.9 Schizoaffective disorder, unspecified; F41.8 Other specified anxiety disorders; F31.9 Bipolar disorder, unspecified; G40.909 Epilepsy, unspecified, not intractable, without status epilepticus; E05.90 Thyrotoxicosis, unspecified without thyrotoxic crisis or storm; D47.1 Chronic myeloproliferative disease; M54.5 Low back pain; G89.29 Other chronic pain; R63.4 Abnormal weight loss; Z68.28 Body mass index [BMI] 28.0-28.9, adult; K00.0 Anodontia; Z86.19 Personal history of other infectious and parasitic diseases; Z62.810 Personal history of physical and sexual abuse in childhood; R29.6 Repeated falls; S09.90XA Unspecified injury of head, initial encounter; W18.12XA Fall from or off toilet with subsequent striking against object, initial encounter; Y93.89 Activity, other specified; Y92.231 Patient bathroom in hospital as the place of occurrence of the external cause
CPT/HCPCS: 82140